=== PATIENT | female | born 1950 | race Caucasian/White ===

== ENCOUNTER 2025-04-13 13:50 | Observation (INO) | payer OTHER ==
--- OUTSIDE RECORDS SUMMARY | 2025-04-13 13:56 | XMS REPORT | Clinical Summary ---
Author Name Unknown Organization [facility] Address [address] [place] [address] Care Team Providers Care Cone Classifier Tender Name Role Phone Unavailable Primary Care Provider Unavailabl e Allergies Active Allergy Reactions Criticality Noted Date Comments Metformin Rash Low 02/08/2025 Medications albuterol (VENTOLIN HFA,PROAIR HFA) 90 mcg/puff inhaler Inhale 2 puffs by mouth every 6 (six) hours as needed for shortness of breath. 07/25/19 23 Active aspirin 81 mg EC tablet Take 1 tablet (81 mg) by mouth daily. Active benzonatate (TESSALON) 100 mg capsule Take 1 capsule (100 mg) by mouth 3 (three) times a day as needed for cough. 10/15/19 24 Active calcium citrate-vitamin D3 (CITRACAL D) 950 mg - 250 units (200 mg elemental calcium per tablet) tab tablet Take 1 tablet by mouth 2 (two) times a day with meals. 06/04/20 24 Active escitalopram (LEXAPRO) 10 mg tablet Take 1 tablet (10 mg) by mouth at bedtime. 06/04/20 24 Active Trelegy Ellipta 200-62.5-25 mcg dsdv Take 1 puff by mouth daily. Active ipratropium-albu terol (DUO-NEB) 0.5 mg-3 mg (2.5 mg base)/3 mL nebulizer solution Inhale 3 mL by mouth every 6 (six) hours as needed for shortness of breath or wheezing. 11/17/19 24 Active letrozole (FEMARA) 2.5 mg tablet Take 1 tablet (2.5 mg) by mouth daily. 05/13/20 24 Active mirtazapine (REMERON) 15 mg tablet Take 1 tablet (15 mg) by mouth at bedtime. 06/04/20 24 Active montelukast (SINGULAIR) 10 mg tablet Take 1 tablet (10 mg) by mouth at bedtime. 12/23/19 25 Active palbociclib (IBRANCE) 75 mg tablet Take 1 tablet (75 mg) by mouth daily. Take 75mg by mouth daily 3 weeks on, then one week off. May be taken with or without food 09/23/19 Active pantoprazole (PROTONIX) 40 mg EC tablet Take 1 tablet (40 mg) by mouth every morning before breakfast. 06/04/20 24 Active rosuvastatin (CRESTOR) 10 mg tablet Take 1 tablet (10 mg) by mouth at bedtime. 06/04/20 Active traZODone (DESYREL) 50 mg tablet Take 0.5-1 tablets (25-50 mg) by mouth nightly as needed for sleep. 11/05/19 25 Active OLANZapine (ZyPREXA) 2.5 mg tabletIndication s:Anxiety depression Take 1 tablet (2.5 mg) by mouth nightly as needed for anxiety. Patient does not know the frequency. 02/11/20 25 Active acetaminophen (TYLENOL) 325 mg tabletIndication s:Fatigue,Dyspne a,Pneumonia,Anem ia,Anxiety depression,Hyper tension,Antineop lastic chemotherapy induced pancytopenia,Can cer-related fatigue,Insomnia due to medical condition,Nausea ,Slow transit constipation,Str ess and adjustment reaction,Estroge n receptor positive status (ER+),Anemia in neoplastic disease,CT of head abnormal,Malnutr ition of moderate degree,Gastroeso phageal reflux disease,Type 2 diabetes mellitus with hyperglycemia,Ch ronic diastolic heart failure,Chronic hypoxemic respiratory failure,Decompen sated COPD with acute exacerbation,Oth er pneumonia Take 2 tablets (650 mg) by mouth every 6 (six) hours as needed for headaches. 02/20/20 25 Active baclofen (LIORESAL) 5 mg tab tabletIndication s:Fatigue,Dyspne a,Pneumonia,Anem ia,Anxiety depression,Hyper tension,Antineop lastic chemotherapy induced pancytopenia,Can cer-related fatigue,Insomnia due to medical condition,Nausea ,Slow transit constipation,Str ess and adjustment reaction,Estroge n receptor positive status (ER+),Anemia in neoplastic disease,CT of head abnormal,Malnutr ition of moderate degree,Gastroeso phageal reflux disease,Type 2 diabetes mellitus with hyperglycemia,Ch ronic diastolic heart failure,Chronic hypoxemic respiratory failure,Decompen sated COPD with acute exacerbation,Oth er pneumonia,Headac he, not otherwise specified,Metapl astic carcinoma, 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 90 tablet 1 5 11:55 AM CDT 02/20/20 25 Active Lantus Solostar U-100 Insulin 100 unit/mL (3 mL) insulin penIndications:F atigue,Dyspnea,P neumonia,Anemia, Anxiety depression,Hyper tension,Antineop lastic chemotherapy induced pancytopenia,Can cer-related fatigue,Insomnia due to medical condition,Nausea ,Slow transit constipation,Str ess and adjustment reaction,Estroge n receptor positive status (ER+),Anemia in neoplastic disease,CT of head abnormal,Malnutr ition of moderate degree,Gastroeso phageal reflux disease,Type 2 diabetes mellitus with hyperglycemia,Ch ronic diastolic heart failure,Chronic hypoxemic respiratory failure,Decompen sated COPD with acute exacerbation,Oth er pneumonia,Headac he, not otherwise specified,Metapl astic carcinoma, 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 15 mL 02/20/20 25 Active topical paste menthol-white petrolatum-zinc oxide (REMEDY CALAZIME) 0.44-20.6 % psteIndications: Fatigue,Dyspnea, Pneumonia,Anemia ,Anxiety depression,Hyper tension,Antineop lastic chemotherapy induced pancytopenia,Can cer-related fatigue,Insomnia due to medical condition,Nausea ,Slow transit constipation,Str ess and adjustment reaction,Estroge n receptor positive status (ER+),Anemia in neoplastic disease,CT of head abnormal,Malnutr ition of moderate degree,Gastroeso phageal reflux disease,Type 2 diabetes mellitus with hyperglycemia,Ch ronic diastolic heart failure,Chronic hypoxemic respiratory failure,Decompen sated COPD with acute exacerbation,Oth er pneumonia,Headac he, not otherwise specified,Metapl astic carcinoma, 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 113 g 5 11:55 AM CDT 02/20/20 25 Active polyethylene glycol (GLYCOLAX) 17 gram/dose powderIndication s:Fatigue,Dyspne a,Pneumonia,Anem ia,Anxiety depression,Hyper tension,Antineop lastic chemotherapy induced pancytopenia,Can cer-related fatigue,Insomnia due to medical condition,Nausea ,Slow transit constipation,Str ess and adjustment reaction,Estroge n receptor positive status (ER+),Anemia in neoplastic disease,CT of head abnormal,Malnutr ition of moderate degree,Gastroeso phageal reflux disease,Type 2 diabetes mellitus with hyperglycemia,Ch ronic diastolic heart failure,Chronic hypoxemic respiratory failure,Decompen sated COPD with acute exacerbation,Oth er pneumonia,Headac he, not otherwise specified,Metapl astic carcinoma, 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 Stir and dissolve in 4 to 8 ounces of any beverage, then drink by mouth daily. 510 g 5 11:55 AM CDT 02/20/20 25 Active senna-docusate (SENOKOT-S) 8.6 mg-50 mg tabletIndication s:Fatigue,Dyspne a,Pneumonia,Anem ia,Anxiety depression,Hyper tension,Antineop lastic chemotherapy induced pancytopenia,Can cer-related fatigue,Insomnia due to medical condition,Nausea ,Slow transit constipation,Str ess and adjustment reaction,Estroge n receptor positive status (ER+),Anemia in neoplastic disease,CT of head abnormal,Malnutr ition of moderate degree,Gastroeso phageal reflux disease,Type 2 diabetes mellitus with hyperglycemia,Ch ronic diastolic heart failure,Chronic hypoxemic respiratory failure,Decompen sated COPD with acute exacerbation,Oth er pneumonia,Headac he, not otherwise specified,Metapl astic carcinoma, 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 180 tablet 5 11:55 AM CDT 02/20/20 25 Active fluticasone propionate-salme terol (ADVAIR) 500 mcg-50 mcg/inhalation diskus inhaler Inhale 1 puff by mouth twice daily. 06/17/20 24 Discontinu ed(Stop Taking at Discharge) furosemide (LASIX) 20 mg tablet Take 2 tablets (40 mg) by mouth daily. Patient states she is suppose to take it daily, but she is only taking it as needed. 04/28/20 24 Discontinu ed(Stop Taking at Discharge) Lantus Solostar U-100 Insulin 100 unit/mL (3 mL) insulin pen Inject 25 Units under the skin twice daily. 12/22/19 25 Discontinu ed(Reorder ) insulin lispro (HumaLOG KWIKPEN) 100 unit/mL insulin pen Inject 10 Units under the skin 3 (three) times a day before meals. Patient states she does not check blood glucose before administering. Discontinu ed(Stop Taking at Discharge) metoprolol tartrate (LOPRESSOR) 25 mg tablet Take 1 tablet (25 mg) by mouth twice daily. 06/04/20 Discontinu ed(Stop Taking at Discharge) OLANZapine (ZyPREXA) 2.5 mg tablet Take 1 tablet (2.5 mg) by mouth. Patient does not know the frequency. 10/22/19 Discontinu ed(Reorder ) amLODIPine (NORVASC) 10 mg tabletIndication s:Hypertension Take 1 tablet (10 mg) by mouth daily for 30 days. 30 tablet 11:55 AM CDT 02/16/20 Active Problems Problem Noted Date Diagnosed Date Adjustment disorder with mixed anxiety and depre ssed mood 02/23/2025 Complicated grief 02/23/2025 Antineoplastic chemotherapy induced pancytopenia 02/18/2025 Anemia in neoplastic disease 02/16/2025 Estrogen receptor positive status (ER+) 02/17/20 Stress and adjustment reaction 02/16/2025 Slow transit constipation 02/16/2025 Nausea 02/16/2025 Insomnia due to medical condition 02/16/2025 Cancer-related fatigue 02/16/2025 Malnutrition of moderate degree 02/12/2025 Headache 02/12/2025 CT of head abnormal 02/12/2025 Decompensated COPD with acute exacerbation 02/09 Chronic hypoxemic respiratory failure 02/09/2025 Chronic diastolic heart failure 02/09/2025 Hypertension 02/09/2025 Chronic kidney disease 02/09/2025 Type 2 diabetes mellitus with hyperglycemia 01/13 Anxiety depression 02/09/2025 Breast cancer 02/09/2025 Gastroesophageal reflux disease 02/09/2025 Other pneumonia 02/08/2025 Fatigue 02/08/2025 Acute nontraumatic kidney injury 02/08/2025 Dyspnea 02/08/2025 Encounters Date Type Department Care Team Description 02/15/2025 7:22 AM CDT Anesthesia Event [facility] Main Bldg, 3rd [place] [address] Teri Estrada MD Shaik, Ghouse B, TIRE TRUCKER 02/08/2025 8:39 AM CDT - 02/19/2025 11:31 AM CDT Hospital Encounter [facility] [address] [place] [address] Destiny More MD Taylor, MD Jennifer Truong Aliasger, MD Leung, Cerena, MD Manzano, Joanna-Grace, MD Fatigue (Primary Dx); Dyspnea; Pneumonia; Anemia; Anxiety depression; Hypertension; Antineoplastic chemotherapy induced pancytopenia; Cancer-related fatigue; Insomnia due to medical condition; Nausea; Slow transit constipation; Stress and adjustment reaction; Estrogen receptor positive status (ER+); Anemia in neoplastic disease; CT of head abnormal; Malnutrition of moderate degree; Gastroesophageal reflux disease; Type 2 diabetes mellitus with hyperglycemia; Chronic diastolic heart failure; Chronic hypoxemic respiratory failure; Decompensated COPD with acute exacerbation; Other pneumonia; Headache, not otherwise specified; Metaplastic carcinoma, 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 Currently vapes, only some days. Passive Exposure Comments:Patient states she quit cigarettes in the beginning of 2024 but started vaping after that, currently vapes. Alcohol Use Standard Drinks/Week Comments Not Currently 0 (1 standard drink = 0.6 oz pur e alcohol) Comments No Sex and Gender Information Value Date Recorded Sex Assigned at Not on file Legal Sex Female 8:32 AM CDT Gender Identity Not on file Sexual Orientation Not on file Travel History Travel Start Travel End [place] 02/06/2025 02/08/2025 Obstetrics History Last Filed Vital Signs Vital Sign Reading Time Taken Comments Blood Pressure 145/59 02/19/2025 9:40 AM CDT Pulse 87 02/19/2025 9:40 AM CDT Temperature 36.5 °C (97.7 °F) 02/19/2025 7:41 AM CD T Respiratory Rate 18 02/19/2025 8:22 AM CDT Oxygen Saturation 90% 02/19/2025 9:40 AM CDT Inhaled Oxygen Concentration - - Weight 114.5 kg (252 lb 6.8 oz) 02/08/2025 2:34 PM CDT Height 170.2 cm (5' 7") 02/08/2025 2:34 PM CDT Body Mass Index 39.54 02/08/2025 2:34 PM CDT Plan of Treatment Health Maintenance Due Date Last Done Comments COVID-19 Vaccine (2024-08 6 season) 2025 11/20/2021, 05/22/2021, 10/06/2020, Additional history exists Influenza Vaccine (#1) 2025 , 04/03/2023, 04/10/2022, Additional history exists Pneumococcal Vaccine: 50+ Years Completed 12/16/2017, 05/16/2016, 05/08/2012, Additional history exists Procedures Procedure Name Priority Date/Time Associated Diagnosis Comments POC GLUCOSE SCREEN Routine 02/19/2025 8: 53 AM CDT .CBC Routine 02/19/2025 1:44 AM CDT PHOSPHORUS LEVEL Routine 02/19/2025 1:44 AM CDT MAGNESIUM LEVEL Routine 02/19/2025 1:44 AM CDT COMPLETE BLOOD COUNT W/ DIFFERENTIAL Routine 02/19/2025 1:44 AM CDT BASIC METABOLIC PANEL, CALCIUM TOTAL Routine 02/19/2025 1:44 AM CDT POC GLUCOSE SCREEN Routine 02/18/2025 10 :30 PM CDT POC GLUCOSE SCREEN Routine 02/18/2025 8: 43 PM CDT POC GLUCOSE SCREEN Routine 02/18/2025 5: 41 PM CDT POC GLUCOSE SCREEN Routine 02/18/2025 1: 56 PM CDT POC GLUCOSE SCREEN Routine 02/18/2025 8: 46 AM CDT .CBC Routine 02/18/2025 5:09 AM CDT PHOSPHORUS LEVEL Routine 02/18/2025 5:09 AM CDT MAGNESIUM LEVEL Routine 02/18/2025 5:09 AM CDT BASIC METABOLIC PANEL, CALCIUM TOTAL Routine 02/18/2025 5:09 AM CDT COMPLETE BLOOD COUNT W/ DIFFERENTIAL Routine 02/18/2025 5:09 AM CDT POC GLUCOSE SCREEN Routine 02/17/2025 10 :36 PM CDT POC GLUCOSE SCREEN Routine 02/17/2025 8: 20 PM CDT POC GLUCOSE SCREEN Routine 02/17/2025 12 :32 PM CDT POC GLUCOSE SCREEN Routine 02/17/2025 7: 30 AM CDT .CBC Routine 02/17/2025 5:43 AM CDT PHOSPHORUS LEVEL Routine 02/17/2025 5:43 AM CDT MAGNESIUM LEVEL Routine 02/17/2025 5:43 AM CDT BASIC METABOLIC PANEL, CALCIUM TOTAL Routine 02/17/2025 5:43 AM CDT COMPLETE BLOOD COUNT W/ DIFFERENTIAL Routine 02/17/2025 5:43 AM CDT POC GLUCOSE SCREEN Routine 02/16/2025 9: 02 PM CDT POC GLUCOSE SCREEN Routine 02/16/2025 6: 09 PM CDT POC GLUCOSE SCREEN Routine 02/16/2025 2: 42 PM CDT POC GLUCOSE SCREEN Routine 02/16/2025 9: 53 AM CDT .CBC Routine 02/16/2025 5:42 AM CDT PHOSPHORUS LEVEL Routine 02/16/2025 5:42 AM CDT MAGNESIUM LEVEL Routine 02/16/2025 5:42 AM CDT BASIC METABOLIC PANEL, CALCIUM TOTAL Routine 02/16/2025 5:42 AM CDT COMPLETE BLOOD COUNT W/ DIFFERENTIAL Routine 02/16/2025 5:42 AM CDT POC GLUCOSE SCREEN Routine 02/15/2025 10 :30 PM CDT POC GLUCOSE SCREEN Routine 02/15/2025 7: 56 PM CDT POC GLUCOSE SCREEN Routine 02/15/2025 1: 03 PM CDT POC GLUCOSE SCREEN Routine 02/15/2025 10 :04 AM CDT POC GLUCOSE SCREEN Routine 02/15/2025 8: 40 AM CDT MRI BRAIN W WO CONTRAST STAT 02/15/2025 7:08 AM CDT POC GLUCOSE SCREEN Routine 02/15/2025 6: 44 AM CDT VITAMIN D 25 HYDROXY LEVEL Add-On 02/15/2025 5:30 AM CDT .CBC Routine 02/15/2025 5:30 AM CDT PHOSPHORUS LEVEL Routine 02/15/2025 5:30 AM CDT MAGNESIUM LEVEL Routine 02/15/2025 5:30 AM CDT BASIC METABOLIC PANEL, CALCIUM TOTAL Routine 02/15/2025 5:30 AM CDT COMPLETE BLOOD COUNT W/ DIFFERENTIAL Routine 02/15/2025 5:30 AM CDT POC GLUCOSE SCREEN Routine 02/14/2025 8: 53 PM CDT POC GLUCOSE SCREEN Routine 02/14/2025 6: 15 PM CDT POC GLUCOSE SCREEN Routine 02/14/2025 1: 15 PM CDT POC GLUCOSE SCREEN Routine 02/14/2025 7: 47 AM CDT ALBUMIN LEVEL Add-On 02/14/2025 4:08 AM CDT .CBC Routine 02/14/2025 4:08 AM CDT PHOSPHORUS LEVEL Routine 02/14/2025 4:08 AM CDT MAGNESIUM LEVEL Routine 02/14/2025 4:08 AM CDT BASIC METABOLIC PANEL, CALCIUM TOTAL Routine 02/14/2025 4:08 AM CDT COMPLETE BLOOD COUNT W/ DIFFERENTIAL Routine 02/14/2025 4:08 AM CDT POC GLUCOSE SCREEN Routine 02/13/2025 9: 47 PM CDT POC GLUCOSE SCREEN Routine 02/13/2025 7: 56 PM CDT EKG, 12-LEAD (PORTABLE) Routine 02/13/2025 4:49 PM CDT POC GLUCOSE SCREEN Routine 02/13/2025 2: 36 PM CDT POC GLUCOSE SCREEN Routine 02/13/2025 10 :04 AM CDT .CBC Routine 02/13/2025 5:51 AM CDT COMPLETE BLOOD COUNT W/ DIFFERENTIAL Routine 02/13/2025 5:51 AM CDT NT PRO BNP Add-On 02/13/2025 5:50 AM CDT PHOSPHORUS LEVEL Routine 02/13/2025 5:50 AM CDT MAGNESIUM LEVEL Routine 02/13/2025 5:50 AM CDT BASIC METABOLIC PANEL, CALCIUM TOTAL Routine 02/13/2025 5:50 AM CDT OSCILLATORY PEP Routine 02/12/2025 8:00 PM CDT POC GLUCOSE SCREEN Routine 02/12/2025 7: 57 PM CDT OSCILLATORY PEP Routine 02/12/2025 2:00 PM CDT POC GLUCOSE SCREEN Routine 02/12/2025 1: 16 PM CDT POC GLUCOSE SCREEN Routine 02/12/2025 9: 04 AM CDT OSCILLATORY PEP Routine 02/12/2025 8:00 AM CDT .CBC Routine 02/12/2025 4:34 AM CDT PHOSPHORUS LEVEL Routine 02/12/2025 4:34 AM CDT MAGNESIUM LEVEL Routine 02/12/2025 4:34 AM CDT BASIC METABOLIC PANEL, CALCIUM TOTAL Routine 02/12/2025 4:34 AM CDT COMPLETE BLOOD COUNT W/ DIFFERENTIAL Routine 02/12/2025 4:34 AM CDT POC GLUCOSE SCREEN Routine 02/11/2025 8: 12 PM CDT OSCILLATORY PEP Routine 02/11/2025 8:00 PM CDT POC GLUCOSE SCREEN Routine 02/11/2025 2: 13 PM CDT OSCILLATORY PEP Routine 02/11/2025 2:00 PM CDT EKG, 12-LEAD (PORTABLE) Routine 02/11/2025 1:25 PM CDT POC GLUCOSE SCREEN Routine 02/11/2025 9: 28 AM CDT OSCILLATORY PEP Routine 02/11/2025 9:07 AM CDT OSCILLATORY PEP Routine 02/11/2025 9:07 AM CDT OSCILLATORY PEP Routine 02/11/2025 9:07 AM CDT PHOSPHORUS LEVEL Routine 02/11/2025 6:42 AM CDT MAGNESIUM LEVEL Routine 02/11/2025 6:42 AM CDT BASIC METABOLIC PANEL, CALCIUM TOTAL Routine 02/11/2025 6:42 AM CDT .CBC Routine 02/11/2025 4:13 AM CDT COMPLETE BLOOD COUNT W/ DIFFERENTIAL Routine 02/11/2025 4:13 AM CDT POC GLUCOSE SCREEN Routine 02/10/2025 10 :04 PM CDT POC GLUCOSE SCREEN Routine 02/10/2025 7: 52 PM CDT POC GLUCOSE SCREEN Routine 02/10/2025 6: 19 PM CDT POC GLUCOSE SCREEN Routine 02/10/2025 1: 28 PM CDT POC GLUCOSE SCREEN Routine 02/10/2025 10 :03 AM CDT EKG, 12-LEAD (PORTABLE) Routine 02/10/2025 9:30 AM CDT NT PRO BNP Add-On 02/10/2025 4:43 AM CDT .CBC Routine 02/10/2025 4:43 AM CDT PHOSPHORUS LEVEL Routine 02/10/2025 4:43 AM CDT MAGNESIUM LEVEL Routine 02/10/2025 4:43 AM CDT COMPLETE BLOOD COUNT W/ DIFFERENTIAL Routine 02/10/2025 4:43 AM CDT BASIC METABOLIC PANEL, CALCIUM TOTAL Routine 02/10/2025 4:43 AM CDT POC GLUCOSE SCREEN Routine 02/09/2025 10 :[address] HEAD WO CONTRAST STAT 02/09/2025 7 :[address] CHEST PULMONARY EMBOLISM W CONTRAST Routine 02/09/2025 7:02 PM CDT US LEG VENOUS DOPPLER BILATERAL Routine 02/09/2025 3:35 PM CDT EKG, 12-LEAD (PORTABLE) Routine 02/09/2025 1:47 PM CDT VANCOMYCIN TROUGH Timed Study 02/09/2025 12: 16 PM CDT ECHOCARDIOGRAM STRAIN/SPECKLE TRACKING Routine 02/09/2025 11:31 AM CDT US RENAL Routine 02/09/2025 5:51 AM CDT HEMOGLOBIN A1C Add-On 02/09/2025 5:25 AM CDT LIPID PANEL Add-On 02/09/2025 5:25 AM CDT HEPATIC FUNCTION PANEL Add-On 5:25 AM CDT .CBC Routine 02/09/2025 5:25 AM CDT PHOSPHORUS LEVEL Routine 02/09/2025 5:25 AM CDT MAGNESIUM LEVEL Routine 02/09/2025 5:25 AM CDT COMPLETE BLOOD COUNT W/ DIFFERENTIAL Routine 02/09/2025 5:25 AM CDT BASIC METABOLIC PANEL, CALCIUM TOTAL Routine 02/09/2025 5:25 AM CDT COMER MISC TEST Routine 02/08/2025 10:59 PM CDT CREATININE URINE, RANDOM Routine 02/08/2025 10:59 PM CDT POTASSIUM LEVEL URINE Routine 02/08/2025 10:59 PM CDT SODIUM URINE Routine 02/08/2025 10:59 PM CDT TRANSFUSE RED BLOOD CELLS Routine 02/08/2025 9:53 PM CDT MRSA SCREENING CULTURE Routine 4:11 PM CDT URINALYSIS W/REFLEX CULTURE GROUPER Routine 02/08/2025 3:43 PM CDT URINALYSIS W/REFLEX CULTURE Routine 02/08/2025 3:43 PM CDT URINE CULTURE Routine 02/08/2025 3:43 PM CDT CONFIRM ABORH TYPE STAT 02/08/2025 10 :54 AM CDT TYPE AND SCREEN STAT 02/08/2025 10:53 AM CDT PREPARE RBC Routine 02/08/2025 10:23 AM CDT RESPIRATORY MULTIPLEX PCR PANEL, NASOPHARYNGEAL SWAB Routine 02/08/2025 10:07 AM CDT DIFFERENTIAL Routine 02/08/2025 10:06 AM CDT .CBC Routine 02/08/2025 10:06 AM CDT CARDIAC PANEL Routine 02/08/2025 10:06 AM CDT COMPLETE BLOOD COUNT W/ DIFFERENTIAL Routine 02/08/2025 10:06 AM CDT NT PRO BNP Routine 02/08/2025 10:06 AM CDT PHOSPHORUS LEVEL Routine 02/08/2025 10:0 6 AM CDT MAGNESIUM LEVEL Routine 02/08/2025 10:06 AM CDT COMPREHENSIVE METABOLIC PANEL Routine 02/08/2025 10:06 AM CDT EKG, 12-LEAD (PORTABLE) STAT 02/08/2025 9:50 AM CDT XR CHEST 1 VW Routine 02/08/2025 9:47 AM CDT after 04/13/2024 Results * (ABNORMAL) POC Glucose Screen - Fingerstick (02/19/2025 8:53 AM CDT) Only the most recent of40 resultswithin the time period is included. Glucose Screen 144(H) 70 - 99 mg/dL 02/19/2025 8:56 AM CDT [facility] POC Sample Type Capillary 02/19/2025 8:56 AM CDT [facility] Blood 02/19/2025 8:53 AM CDT 02/19/2025 8:56 AM CDT Narrative [facility] - 02/19/2025 8:56 AM CDT Capillary blood samples, e.g. obtained by fingerstick, may have inaccurate results in patients with decreased peripheral blood flow. Method description: All results are measured using Electrochemistry test methodology. The glucose in the sample mixes with the reagents on the test strip. The reaction produces an electric current. The amount of current produced is proportional to the glucose concentration in the blood. All POC Glucose screen test results, including critical values, must be interpreted and evaluated in the context of the patients' clinical findings. It is recommended to confirm any questionable test results by core lab methodology. us Bernice Carey MD POCT ORDERABLES - DEVICE Final Result [facility] [address] [place] [address] * (ABNORMAL) .CBC (02/19/2025 1:44 AM CDT) Only the most recent of12 resultswithin the time period is included. White Blood Cell 5.8 4.1 - 10.5 K/uL 02/19/2025 2:02 AM CDT [facility] Red Blood Cell 2.64(L) 3.99 - 5.46 M/uL 02/19/2025 2:02 AM CDT [facility] Hemoglobin 7.9(L) 12.2 - 15.3 g/dL 02/19/2025 2:02 AM CDT [facility] Hematocrit 25.7(L) 36.4 - 46.8 % 02/19/2025 2:02 AM CDT [facility] Mean Cell Volume 97 82 - 99 fL 02/19/2025 2:02 AM CDT [facility] Mean Cell Hemoglobin 29.9 26.6 - 33.2 pg 02/19/2025 2:02 AM CDT [facility] Mean Cell Hemoglobin Concentration 30.7(L) 31.1 - 35.2 g/dL 02/19/2025 2:02 AM CDT [facility] RDW-SD 62.0(H) 37.5 - 49.7 fL 02/19/2025 2:02 AM [facility] Red Cell Diameter Width 17.2(H) 11.6 - 15.5 % 02/19/2025 2:02 AM [facility] Platelet 104(L) 160 - 397 K/uL 02/19/2025 2:02 AM [facility] Mean Platelet Volume 10.7 9.1 - 12.6 fL 02/19/2025 2:02 AM [facility] INRBC 0.0 0.0 - 0.1 /100 WBC 02/19/2025 2:02 AM [facility] Comment: The INRBC value reflects the enumeration of nucleated red blood cells contained in a 200uL sample of whole blood analyzed by the instrument. This value may differ from the NRBC value reported in a manual diff, which is based on a 100 cell differential. Neutrophil % 64.1 43.2 - 72.7 % 02/19/2025 2:02 AM [facility] Lymphocyte % 15.9(L) 16.8 - 46.2 % 02/19/2025 2:02 AM [facility] Monocyte % 16.4(H) 5.1 - 12.5 % 02/19/2025 2:02 AM [facility] Eosinophil % 2.4 0.4 - 6.3 % 02/19/2025 2:02 AM [facility] Basophil % 0.7 0.2 - 1.4 % 02/19/2025 2:02 AM [facility] IGRE % 0.5 0.1 - 1.5 % 02/19/2025 2:02 AM [facility] Comment:The IGRE% includes M etamyelocytes, Myelocytes and Promyelocytes. Neutrophil Abs 3.71 1.95 - 7.25 K/uL 02/19/2025 2:02 AM [facility] Lymphocyte Abs 0.92(L) 1.01 - 3.24 K/uL 02/19/2025 2:02 AM [facility] Monocyte Abs 0.95(H) 0.24 - 0.85 K/uL 02/19/2025 2:02 AM CDT [facility] Eosinophil Abs 0.14 0.02 - 0.50 K/uL 02/19/2025 2:02 AM CDT [facility] Basophil Abs 0.04 0.02 - 0.09 K/uL 02/19/2025 2:02 AM CDT [facility] IG Abs 0.03 0.01 - 0.12 K/uL 02/19/2025 2:02 AM CDT [facility] Blood Peripheral blood specimen / Unknown Venipuncture / Unknown 02/19/2025 1:44 AM CDT 02/19/2025 1:54 AM CDT us T Bhatti [employer] LAB BLOOD ORDERABLES Final Resul t [address] [place] [address] [place] [address] * (ABNORMAL) Basic Metabolic Panel- Total Calcium (02/19/2025 1:44 AM CDT) Only the most recent of11 resultswithin the time period is included. eGFR 45(L) >=60 mL/min/1. 73 sq. m 02/19/2025 2:27 AM CDT [facility] Comment: The eGFRcr is calculated with the 2020 CKD-EPI creatinine equation using creatinine, patient's age, and sex for adults 18 years of age and older. Other factors, especially muscle mass, may affect accuracy and need to be considered. According to the Kidney Disease: Improving Global Outcomes (KDIGO) CKD Work Group 2012 Clinical Practice Guideline, chronic kidney disease (CKD) is defined as the abnormalities of kidney structure or function, present for more than 3 months, with implications for health. CKD should be classified by cause, GFR category, and albuminuria category. KDIGO guidelines provide the following GFR categories. Stage / Description / GFR mL/min/1.73 m2: G1* / Normal or high / >= 90 G2* / Mildly decreased / 60-89 G3a / Mildly to moderately decreased / 45-59 G3b / Moderately to severely decreased / 30-44 G4 / Severely decreased / 15-29 G5 / Kidney failure / <15 *In the absence of evidence of kidney damage, neither G1 nor G2 fulfill criteria for CKD. Calcium Level Total 9.5 8.2 - 10.2 mg/dL 02/19/2025 2:27 AM CDT [facility] Sodium Level 141 136 - 145 mmol/L 02/19/2025 2:27 AM CDT [facility] Potassium Level 4.6(H) 3.4 - 4.5 mmol/L 02/19/2025 2:27 AM CDT [facility] Chloride 102 98 - 107 mmol/L 02/19/2025 2:27 AM CDT [facility] CO2 30(H) 22 - 29 mmol/L 02/19/2025 2:27 AM CDT [facility] Anion Gap 9 4 - 14 mmol/L 02/19/2025 2:27 AM CDT [facility] Creatinine 1.26(H) 0.51 - 0.95 mg/dL 02/19/2025 2:27 AM CDT [facility] BUN 23 6 - 23 mg/dL 02/19/2025 2:27 AM CDT [facility] Glucose Level 129(H) 70 - 99 mg/dL 02/19/2025 2:27 AM CDT [facility] Comment: Effective 02/08/16, the glucose reference intervals have been updated based on [place] Diabetes [employer] guidelines (Standards of Medical Care in Diabetes 2016. Diabetes Care 2016; 39: S13-S22). Fasting blood glucose: Normal: 70-99 mg/dL Impaired fasting glucose (increased risk for diabetes or pre-diabetes): 100-125 mg/dL Diabetes mellitus: >/=126 mg/dL Random blood glucose: Normal: 70-199 mg/dL Note: Random glucose >100 mg/dL is associated with increased risk for diabetes. Blood Peripheral blood specimen / Unknown Venipuncture / Unknown 02/19/2025 1:44 AM CDT 02/19/2025 1:54 AM CDT us T Bhatti [employer] LAB BLOOD ORDERABLES Final Resul t [facility] [address] [place] [address] * Phosphorus Level (02/19/2025 1:44 AM CDT) Only the most recent of12 resultswithin the time period is included. Phosphorus Level 3.3 2.5 - 4.5 mg/dL 02/19/2025 2:27 AM CDT [facility] Blood Peripheral blood specimen / Unknown Venipuncture / Unknown 02/19/2025 1:44 AM CDT 02/19/2025 1:54 AM CDT us T Bhatti [employer] LAB BLOOD ORDERABLES Final Resul t Performing Organization Address [facility] Co de Phone Number [address] [address] * Magnesium Level (02/19/2025 1:44 AM CDT) Only the most recent of12 resultswithin the time period is included. Magnesium Level 2.2 1.6 - 2.6 mg/dL 02/19/2025 2:27 AM CDT [facility] Blood Peripheral blood specimen / Unknown Venipuncture / Unknown 02/19/2025 1:44 AM CDT 02/19/2025 1:54 AM CDT us T Bhatti [employer] LAB BLOOD ORDERABLES Final Resul t Performing Organization Address [facility] de Phone Number [address] [address] * MRI Brain with and without Contrast (02/15/2025 7:08 AM CDT) Anatomical Region Laterality Modality Head Magnetic Resonan ce 02/15/2025 8:45 AM CDT Impressions 02/15/2025 9:57 AM CDT 1. No acute intracranial abnormality. 2. No definite evidence of intracranial metastasis within motion limitation. ACTIONABLE ITEMS/RECOMMENDATIONS*: None. *An Actionable Finding is a finding that may be unrelated to the original reason for imaging but potentially actionable, meaning further investigation may be necessary. The Actionable Findings Vigilance Unit (AFVU) assists medical providers with responding to additional radiologic findings that are unexpected and potentially actionable. Narrative 02/15/2025 9:57 AM CDT FULL RESULT: Examination: MRI BRAIN W WO CONTRAST on 02/15/2025 7:08 AM. CLINICAL HISTORY: Decompensated COPD with acute exacerbation. Breast cancer. INDICATION: Uncontrolled headaches COMPARISON: CT 02/09/2025. TECHNIQUE: MRI of the brain without and with IV contrast was performed. FINDINGS: Motion degraded exam. Intracranial: There is no worrisome parenchymal or leptomeningeal enhancement. There is no acute hemorrhage or acute infarct. There is small area of gliosis in left occipital lobe without enhancement (series 9 image 17, series 1100 image 57), likely secondary to prior insult. Moderate patchy periventricular and subcortical white matter as well as pontine FLAIR hyperintensities, likely related to chronic microangiopathy. There is no mass effect or midline shift. The ventricles and extra-axial spaces are appropriate for age. There is no sellar or suprasellar abnormality. Bone: There are no suspicious calvarial or skull base lesions. Hyperostosis frontalis interna. Prominent osteophyte at left C1-C2 lateral mass/facet and C2/C3 degenerative changes are partially seen. Extracranial: Bilateral pseudophakia. The mastoid and visualized paranasal sinuses are predominantly clear. Procedure Note Gal Caba MD - 02/15/2025 FULL RESULT: Examination: MRI BRAIN W WO CONTRAST on 02/15/2025 7:08 AM. CLINICAL HISTORY: Decompensated COPD with acute exacerbation. Breastcancer. INDICATION: Uncontrolled headaches COMPARISON: CT 02/09/2025. TECHNIQUE: MRI of the brain without and with IV contrast was performed. FINDINGS: Motion degraded exam. Intracranial: There is no worrisome parenchymal or leptomeningeal enhancement. There is no acute hemorrhage or acute infarct. There is small area of gliosis in left occipital lobe without enhancement(series 9 image 17, series 1100 image 57), likely secondary to priorinsult. Moderate patchy periventricular and subcortical white matter as well aspontine FLAIR hyperintensities, likely related to chronicmicroangiopathy. There is no mass effect or midline shift. The ventricles and extra-axial spaces are appropriate for age. There is no sellar or suprasellar abnormality. Bone: There are no suspicious calvarial or skull base lesions. Hyperostosis frontalis interna. Prominent osteophyte at left C1-C2 lateral mass/facet and C2/B9sjoomayjuowg changes are partially seen. Extracranial: Bilateral pseudophakia. The mastoid and visualized paranasal sinuses are predominantly clear. IMPRESSION: 1. No acute intracranial abnormality. 2. No definite evidence of intracranial metastasis within motionlimitation. ACTIONABLE ITEMS/RECOMMENDATIONS*: None. *An Actionable Finding is a finding that may be unrelated to the originalreason for imaging but potentially actionable, meaning furtherinvestigation may be necessary. The Actionable Findings Vigilance Unit(AFVU) assists medical providers with responding to additional radiologicfindings that are unexpected and potentially actionable. Franky Edward MD IMG MRI ORDERABLES Final Result * (ABNORMAL) Vitamin D 25OH (02/15/2025 5:30 AM CDT) Pathologist [facility] Vitamin D 25 OH 19(L) 30 - 100 ng/mL 02/15/2025 10:27 PM CDT [facility] Blood Peripheral blood specimen / Unknown Venipuncture / Unknown 02/15/2025 5:30 AM CDT 02/15/2025 5:57 AM CDT Narrative [facility] - 02/15/2025 10:27 PM CDT Reference Range: Deficiency: <=20 ng/mL Insufficiency: 21-29 ng/mL Sufficiency: 30-100 ng/mL Potential toxicity: >100 ng/mL Franky Edward MD LAB BLOOD ORDERABLES Final Resul t [facility] [address] [place] [address] * Albumin Level (02/14/2025 4:08 AM CDT) Albumin Level 3.5 3.5 - 5.2 gm/dL 02/14/2025 11:02 AM CDT [facility] Blood Peripheral blood specimen / Unknown Venipuncture / Unknown 02/14/2025 4:08 AM CDT 02/14/2025 4:31 AM CDT us Franky Edward MD LAB BLOOD ORDERABLES Final Resul t Performing Organization Address [facility] Co de Phone Number [address] [address] * EKG, 12-Lead (Portable) (02/13/2025 4:49 PM CDT) Only the most recent of5 resultswithin the time period is included. us Franky Edward MD ECG ORDERABLES Final Result Performing Organization Address [facility] Co de Phone Number [facility] IECG * (ABNORMAL) NT-Pro BNP (In-House) (02/13/2025 5:50 AM CDT) Only the most recent of3 resultswithin the time period is included. NT-ProBNP 3,712(H) <=450 pg/mL 02/13/2025 11:35 AM CDT [facility] Blood Peripheral blood specimen / Unknown Venipuncture / Unknown 02/13/2025 5:50 AM CDT 02/13/2025 6:17 AM CDT Result [facility] us Franky Edward MD LAB BLOOD ORDERABLES Final Resul t Performing Organization Address [facility] de Phone Number [address] [address] * CT Head without Contrast (02/09/2025 7:02 PM CDT) Anatomical Region Laterality Modality Head Computed Tomogra phy 02/09/2025 7:12 PM CDT Impressions 02/09/2025 10:47 PM CDT 1. No acute intracranial abnormality. 2. Generalized cerebral volume loss. 3. Hyperostosis frontalis interna. ACTIONABLE ITEMS/RECOMMENDATIONS*: None. *An Actionable Finding is a finding that may be unrelated to the original reason for imaging but potentially actionable, meaning further investigation may be necessary. The Actionable Findings Vigilance Unit (AFVU) assists medical providers with responding to additional radiologic findings that are unexpected and potentially actionable. I personally reviewed these image(s) along with the resident's/fellow's interpretations, certify that if a procedure was performed I was physically present, and agree with the final report. Narrative 02/09/2025 10:47 PM CDT FULL RESULT: Examination: CT HEAD WO CONTRAST on 02/09/2025 7:02 PM. CLINICAL HISTORY: Anemia Dyspnea Pneumonia Fatigue INDICATION: severe headache COMPARISON: None. TECHNIQUE: CT head without IV contrast was performed. FINDINGS: Intracranial: Periarticular subcortical white matter hypodensities favored to represent chronic microvascular ischemic changes. There is no acute hemorrhage or large vascular territory infarct. There is no mass effect or midline shift. The ventricles and extra-axial spaces are enlarged with generalized cerebral volume loss, appropriate for age. Bone: There are no suspicious lytic or sclerotic calvarial and skull base lesions. Hyperostosis frontalis interna. Extracranial: The orbits are unremarkable. The visualized paranasal sinuses are predominantly clear. The mastoid air cells are clear. Procedure Note Onel Mckenna MD - 02/09/2025 FULL RESULT: Examination: CT HEAD WO CONTRAST on 02/09/2025 7:02 PM. CLINICAL HISTORY: Anemia Dyspnea Pneumonia Fatigue INDICATION: severe headache COMPARISON: None. TECHNIQUE: CT head without IV contrast was performed. FINDINGS: Intracranial: Periarticular subcortical white matter hypodensities favored to representchronic microvascular ischemic changes. There is no acute hemorrhage or large vascular territory infarct. There is no mass effect or midline shift. The ventricles and extra-axial spaces are enlarged with generalizedcerebral volume loss, appropriate for age. Bone: There are no suspicious lytic or sclerotic calvarial and skull baselesions. Hyperostosis frontalis interna. Extracranial: The orbits are unremarkable. The visualized paranasal sinuses are predominantly clear. The mastoid air cells are clear. IMPRESSION: 1. No acute intracranial abnormality. 2. Generalized cerebral volume loss. 3. Hyperostosis frontalis interna. ACTIONABLE ITEMS/RECOMMENDATIONS*: None. *An Actionable Finding is a finding that may be unrelated to the originalreason for imaging but potentially actionable, meaning furtherinvestigation may be necessary. The Actionable Findings Vigilance Unit(AFVU) assists medical providers with responding to additional radiologicfindings that are unexpected and potentially actionable. I personally reviewed these image(s) along with the resident's/fellow'sinterpretations, certify that if a procedure was performed I wasphysically present, and agree with the final report. us Franky Edward MD IMG CT ORDERABLES Final Result * CT Chest Pulmonary Embolism with Contrast (02/09/2025 7:02 PM CDT) Anatomical Region Laterality Modality Chest Computed Tomogra phy 02/09/2025 7:15 PM CDT Impressions 02/09/2025 7:27 PM CDT No pulmonary embolism. No pneumonia. Subsegmental atelectasis in the lingula and lung bases. Small pleural effusions. Bony metastatic disease. ACTIONABLE ITEMS/RECOMMENDATIONS*: None. *An Actionable Finding is a finding that may be unrelated to the original reason for imaging but potentially actionable, meaning further investigation may be necessary. The Actionable Findings Vigilance Unit (AFVU) assists medical providers with responding to additional radiologic findings that are unexpected and potentially actionable. Narrative 02/09/2025 7:27 PM CDT FULL RESULT: Examination: CT CHEST PULMONARY EMBOLISM W CONTRAST on 02/09/2025 7:02 PM. Clinical History: Breast cancer, Anemia Dyspnea Pneumonia Fatigue Indication: shortness of breath Comparison: None Technique: CT of the chest is performed using intravenous contrast. Findings: Lungs/Airways/Pleura: The left upper lobe 0.6 cm solid nodule on image 43 of series 3 is a nonspecific finding. A calcified granuloma is noted in the left lower lobe. Subsegmental atelectasis is seen in the lingula and bilateral lung bases. Small bilateral pleural effusions, left greater than right. Left pleural thickening may represent an inflammatory process or metastatic pleural disease. Neck/Mediastinum/Nodes/Heart: Contrast opacification of the pulmonary arteries is adequate for assessment of pulmonary embolism. No evidence of pulmonary embolism. No mediastinal or hilar adenopathy. The heart size is normal. Moderate coronary artery calcifications are noted. Mitral annular calcifications are noted. A small hiatal hernia is noted. Upper abdomen: Cholelithiasis is present. The adrenals are unremarkable. Bones/Soft Tissues: Sclerosis involving the left posterior 6th is suspicious for metastasis. The 1 cm sclerotic focus in the T9 vertebral body is suspicious for metastasis. Sclerosis of the anterior cortex of the left 7th to 10th ribs is also noted. A 1.6 cm sebaceous cyst is seen in the midline of the upper back. Degenerative changes are seen in the spine. Procedure Note Citlalli Zeng MD - 02/09/2025 FULL RESULT: Examination: CT CHEST PULMONARY EMBOLISM W CONTRAST on 02/09/2025 7:02PM. Clinical History: Breast cancer, Anemia Dyspnea Pneumonia Fatigue Indication: shortness of breath Comparison: None Technique: CT of the chest is performed using intravenous contrast. Findings: Lungs/Airways/Pleura: The left upper lobe 0.6 cm solid nodule on image 43of series 3 is a nonspecific finding. A calcified granuloma is noted inthe left lower lobe. Subsegmental atelectasis is seen in the lingula andbilateral lung bases. Small bilateral pleural effusions, left greater thanright. Left pleural thickening may represent an inflammatory process ormetastatic pleural disease. Neck/Mediastinum/Nodes/Heart: Contrast opacification of the pulmonaryarteries is adequate for assessment of pulmonary embolism. No evidence ofpulmonary embolism. No mediastinal or hilar adenopathy. The heart size is normal. Moderatecoronary artery calcifications are noted. Mitral annular calcificationsare noted. A small hiatal hernia is noted. Upper abdomen: Cholelithiasis is present. The adrenals are unremarkable. Bones/Soft Tissues: Sclerosis involving the left posterior 6th issuspicious for metastasis. The 1 cm sclerotic focus in the T9 vertebralbody is suspicious for metastasis. Sclerosis of the anterior cortex of theleft 7th to 10th ribs is also noted. A 1.6 cm sebaceous cyst is seen inthe midline of the upper back. Degenerative changes are seen in thespine. IMPRESSION: No pulmonary embolism. No pneumonia. Subsegmental atelectasis in thelingula and lung bases. Small pleural effusions. Bony metastaticdisease. ACTIONABLE ITEMS/RECOMMENDATIONS*: None. *An Actionable Finding is a finding that may be unrelated to the originalreason for imaging but potentially actionable, meaning furtherinvestigation may be necessary. The Actionable Findings Vigilance Unit(AFVU) assists medical providers with responding to additional radiologicfindings that are unexpected and potentially actionable. Franky Edward MD IMG CT ORDERABLES Final Result * US Leg Venous Doppler Bilateral (02/09/2025 3:35 PM CDT) Anatomical Region Laterality Modality Leg, Extremity Ultrasound 02/09/2025 4:08 PM CDT Impressions 02/09/2025 4:20 PM CDT No definitive deep venous thrombosis in the visualized veins of the bilateral lower extremities as described above. ACTIONABLE ITEMS/RECOMMENDATIONS*: None. *An Actionable Finding is a finding that may be unrelated to the original reason for imaging but potentially actionable, meaning further investigation may be necessary. The Actionable Findings Vigilance Unit (AFVU) assists medical providers with responding to additional radiologic findings that are unexpected and potentially actionable. Narrative 02/09/2025 4:20 PM CDT Examination: US LEG VENOUS DOPPLER BILATERAL on 02/09/2025 3:35 PM. Clinical History: Left breast cancer. Anemia. Dyspnea. Pneumonia. Fatigue. Indication: Bilateral lower extremity edema. Comparison: None available. TECHNIQUE: Sonographic evaluation of the deep veins of the bilateral lower extremities was performed assessing grayscale appearance, color and spectral Doppler flow, and compressibility. FINDINGS: The bilateral common femoral, femoral, proximal deep femoral, and popliteal veins and saphenofemoral junctions demonstrate color/spectral Doppler flow and compressibility. The visualized bilateral anterior tibial and posterior tibial veins demonstrate color/spectral Doppler flow. The visualized right peroneal vein demonstrates color/spectral Doppler flow. The left peroneal vein could not be visualized. Procedure Note Elvin Mcconnell MD - 02/09/2025 Examination: US LEG VENOUS DOPPLER BILATERAL on 02/09/2025 3:35 PM. Clinical History: Left breast cancer. Anemia. Dyspnea. Pneumonia.Fatigue. Indication: Bilateral lower extremity edema. Comparison: None available. TECHNIQUE: Sonographic evaluation of the deep veins of the bilateral lowerextremities was performed assessing grayscale appearance, color andspectral Doppler flow, and compressibility. FINDINGS: The bilateral common femoral, femoral, proximal deep femoral, andpopliteal veins and saphenofemoral junctions demonstrate color/spectralDoppler flow and compressibility. The visualized bilateral anterior tibial and posterior tibial veinsdemonstrate color/spectral Doppler flow. The visualized right peronealvein demonstrates color/spectral Doppler flow. The left peroneal veincould not be visualized. IMPRESSION: No definitive deep venous thrombosis in the visualized veins of thebilateral lower extremities as described above. ACTIONABLE ITEMS/RECOMMENDATIONS*: None. *An Actionable Finding is a finding that may be unrelated to the originalreason for imaging but potentially actionable, meaning furtherinvestigation may be necessary. The Actionable Findings Vigilance Unit(AFVU) assists medical providers with responding to additional radiologicfindings that are unexpected and potentially actionable. us Franky Edward MD [facility] [place] US ORDERABLES Final Result * Vancomycin Trough Vancomycin trough on 02/09 @ 1230. Nurse please coordinate with lab to draw troughapproximately 11 - 11.5 hours after previous vancomycin dose. Hold vancomycin if trough is greater than 20 and notify provider. Thanks! (02/09/2025 12:16 PM CDT) Vancomycin Trough 16.5 5.0 - 20.0 mcg/mL 02/09/2025 1:04 PM CDT [facility] Vancomycin Trough Dose Time 02/09/2025 1:04 PM CDT [facility] Vancomycin Trough Dose Date 02/09/2025 1:04 PM CDT [facility] Blood Peripheral blood specimen / Unknown Venipuncture / Unknown 02/09/2025 12:16 PM CDT 02/09/2025 12:26 PM CDT Narrative [facility] - 02/09/2025 1:04 PM CDT Toxic Trough Level: >20 mcg/ml Uncomplicated MRSA bacteremia: 10-15mcg/mL MRSA bacteremia or endocarditis and other severe invasive MRSA infections (PJI, HAP, ACCOUNTING CLERK infections): 15-20mcg/mL us Franky Edward MD LAB BLOOD ORDERABLES Final Resul t [facility] [address] [place] [address] * Echocardiogram Strain/Speckle Tracking (02/09/2025 11:31 AM CDT) EF 65 ISCV 02/09/2025 9:38 AM CDT Narrative ISCV - 02/09/2025 1:09 PM CDT Echocardiographic Report Interpretation Summary A complete two-dimensional transthoracic echocardiogram was performed (2D, M- mode, Doppler and color flow Doppler). The study was technically adequate and no previous studies are available for comparison. -LV is dilated using volumetric criteria. Left ventricular systolic function is normal. LV ejection fraction calculated using the bi-plane method of disks is 65 %. -The right ventricle is normal in size and function. -Moderate valvular aortic stenosis. -Mild mitral annular calcification. 6 mmHg mean mitral valve gradient at 73 BPM. -Right ventricular systolic pressure is elevated at 50-55 mmHg. -There is no pericardial effusion. Left Ventricle: LV is dilated using volumetric criteria. Relative width thickness measures suggest concentric changes. Left ventricular systolic function is normal. LV ejection fraction calculated using the bi-plane method of disks is 65 %. The left ventricular wall motion is normal. I WMSI = 1.00 % Normal = 100 Borderline GLS Segments Size X - Cannot 2 - 1-2 small Interpret 1 - Normal Hypokinetic 3 - Akinetic 4 - Dyskinetic3- 5 moderate 5 - Aneurysmal 6-14 large 15-16 diffuse 3D imaginD volumes were not performed in this study. Cardiac Mechanics/Speckle Tracking Imaging: Borderline global longitudinal peak systolic value. Strain Imaging was performed; GLPS avg = -17.8%. Diastology: Unable to evaluate due to mitral valve pathology. Right Ventricle: The right ventricle is normal in size and function. Atria: The left atrium is moderately dilated. Right atrial size is normal. Mitral Valve: Mild mitral annular calcification. 6 mmHg mean mitral valve gradient at 73 BPM. There is trace mitral regurgitation. Tricuspid Valve: The tricuspid valve is not well visualized, but is grossly normal. There is trace tricuspid regurgitation. Right ventricular systolic pressure is elevated at 50- 55 mmHg. Aortic Valve: The aortic valve is trileaflet. Mild aortic valve calcification. Moderate valvular aortic stenosis. The calculated aortic valve area is 1.7 sq.cm. The calculated mean gradient across the aortic valve is 33 mmHg. The peak velocity is 3.8 m/sec. There is trace aortic regurgitation. Pulmonic Valve: The pulmonic valve is not well visualized. Trace pulmonic valvular regurgitation. Great Vessels: The aortic root is normal size. The inferior vena cava demonstrates normal size and normal respiratory variation. Pericardium/Pleural: There is no pericardial effusion. MMode/2D Measurements IVSd: 0.85 cm LVIDd: 4.5 cm LVIDs: 3.0 cm LVPWd: 1.2 cm FS: 32.9 % Ao root diam: 2.8 cm Ao root area: 6.2 cm2 LA dimension: 4.7 cm asc Aorta Diam: 3.3 cm LVOT diam: 2.4 cm LVOT area: 4.4 cm2 EDV(MOD-A4C): 156.5 ml EDV(MOD-A2C): 166.1 ml ESV(MOD-A4C): 61.4 ml ESV(MOD-A2C): 54.2 ml EF(MOD-A4C): 60.8 % EF(MOD-A2C): 67.3 % LAV(MOD-A2C): 92.8 ml EDV(MOD-bp): 164.4 ml LAV(MOD-A4C): 101.6 ml ESV(MOD-bp): 57.1 ml LAV(MOD-bp): 101.6 ml EF(MOD-bp): 65.3 % LAV(MOD-bp) Indexed: 45.5 ml/m2 RA A4C-A/L_phl: 14.7 cm2 EDV (MOD-bp) Index: 73.7 ml/m2 ESV (MOD-bp) Index: 25.6 ml/m2 RWT: 0.52 cm TAPSE (>1.6): 2.6 cm Time Measurements MV Prop V_phl: 64.7 cm/sec Doppler Measurements MV E max timbo: 161.8 cm/sec MV V2 max: 191.0 cm/sec MV A max timbo: 191.6 cm/sec MV max P.6 mmHg MV E/A: 0.84 MV V2 mean: 116.3 cm/sec MV mean P.1 mmHg MV V2 VTI: 47.7 cm MVA(VTI): 3.4 cm2 MV dec time: 0.24 sec Ao V2 max: 384.4 cm/sec Ao max P.1 mmHg Ao V2 mean: 273.5 cm/sec Ao mean P.2 mmHg Ao V2 VTI: 96.2 cm WILLIAM(I,D): 1.7 cm2 WILLIAM(V,D): 1.8 cm2 AI dec slope: 383.8 cm/sec2 LV V1 max P.4 mmHg LV V1 mean P.2 mmHg LV V1 max: 153.5 cm/sec LV V1 mean: 94.8 cm/sec LV V1 VTI: 36.9 cm SV(LVOT): 162.2 ml PA V2 max: 117.8 cm/sec PA max P.5 mmHg PA V2 mean: 75.3 cm/sec PA mean P.7 mmHg PA V2 VTI: 22.5 cm Med Peak E' Timbo: 4.6 cm/sec Lat Peak E' Timbo: 5.3 cm/sec TR max timbo: 358.5 cm/sec RAP systole: 3.0 mmHg TR max P.4 mmHg RVSP(TR): 54.4 mmHg WILLIAM Index (I,D): 0.76 WILLIAM Index (V,D): 0.79 Dimensionless Index: 0.40 E/e' (avg): 32.6 E/e' (lat): 30.6 E/e' (sept): 34.8 Procedure Note Hola Prasad MD - 02/09/2025 Echocardiographic Report Interpretation Summary A complete two-dimensional transthoracic echocardiogram was performed (2D,M- mode, Doppler and color flow Doppler). The study was technicallyadequate and no previous studies are available for comparison. -LV is dilated using volumetric criteria. Left ventricular systolicfunction is normal. LV ejection fraction calculated using the bi-planemethod of disks is 65 %. -The right ventricle is normal in size and function. -Moderate valvular aortic stenosis. -Mild mitral annular calcification. 6 mmHg mean mitral valve gradient at73 BPM. -Right ventricular systolic pressure is elevated at 50-55 mmHg. -There is no pericardial effusion. Left Ventricle: LV is dilated using volumetric criteria. Relative width thickness measuressuggest concentric changes. Left ventricular systolic function is normal.LV ejection fraction calculated using the bi-plane method of disks is 65%. The left ventricular wall motion is normal. I WMSI = 1.00 % Normal = 100 Borderline GLS Segments Size X - Cannot 2 - 1-2small Interpret 1 - Normal Hypokinetic 3 - Akinetic 4 - Dyskinetic3-5moderate 5 - Aneurysmal6-14 large 15-16 diffuse 3D imaginD volumes were not performed in this study. Cardiac Mechanics/Speckle Tracking Imaging: Borderline global longitudinal peak systolic value. Strain Imaging wasperformed; GLPS avg = -17.8%. Diastology: Unable to evaluate due to mitral valve pathology. Right Ventricle: The right ventricle is normal in size and function. Atria: The left atrium is moderately dilated. Right atrial size is normal. Mitral Valve: Mild mitral annular calcification. 6 mmHg mean mitral valve gradient at 73BPM. There is trace mitral regurgitation. Tricuspid Valve: The tricuspid valve is not well visualized, but is grossly normal. Thereis trace tricuspid regurgitation. Right ventricular systolic pressure iselevated at 50-55 mmHg. Aortic Valve: The aortic valve is trileaflet. Mild aortic valve calcification. Moderatevalvular aortic stenosis. The calculated aortic valve area is 1.7 sq.cm.The calculated mean gradient across the aortic valve is 33 mmHg. The peakvelocity is 3.8 m/sec. There is trace aortic regurgitation. Pulmonic Valve: The pulmonic valve is not well visualized. Trace pulmonic valvularregurgitation. Great Vessels: The aortic root is normal size. The inferior vena cava demonstrates normalsize and normal respiratory variation. Pericardium/Pleural: There is no pericardial effusion. MMode/2D Measurements IVSd: 0.85 cmLVIDd: 4.5 cm LVIDs: 3.0 cm LVPWd: 1.2 cm FS: 32.9 %Ao root diam: 2.8 cm Ao root area: 6.2 cm2 LA dimension: 4.7 cm asc Aorta Diam: 3.3 cmLVOT diam: 2.4 cm LVOT area: 4.4 cm2 EDV(MOD-A4C): 156.5 mlEDV(MOD-A2C): 166.1 ml ESV(MOD-A4C): 61.4 mlESV(MOD-A2C): 54.2 ml EF(MOD-A4C): 60.8 %EF(MOD-A2C): 67.3 % LAV(MOD-A2C): 92.8 ml EDV(MOD-bp): 164.4 mlLAV(MOD-A4C): 101.6 ml ESV(MOD-bp): 57.1 mlLAV(MOD-bp): 101.6 ml EF(MOD-bp): 65.3 %LAV(MOD-bp) Indexed: 45.5 ml/m2 RA A4C-A/L_phl: 14.7 cm2EDV (MOD-bp) Index: 73.7 ml/m2 ESV (MOD-bp) Index: 25.6 ml/m2RWT: 0.52 cm TAPSE (>1.6): 2.6 cm Time Measurements MV Prop V_phl: 64.7 cm/sec Doppler Measurements MV E max timbo: 161.8 cm/secMV V2 max: 191.0 cm/sec MV A max timbo: 191.6 cm/secMV max P.6 mmHg MV E/A: 0.84MV V2 mean: 116.3 cm/sec MV mean P.1 mmHg MV V2 VTI: 47.7 cm MVA(VTI): 3.4 cm2 MV dec time: 0.24 secAo V2 max: 384.4 cm/sec Ao max P.1 mmHg Ao V2 mean: 273.5 cm/sec Ao mean P.2 mmHg Ao V2 VTI: 96.2 cm WILLIAM(I,D): 1.7 cm2 WILLIAM(V,D): 1.8 cm2 AI dec slope: 383.8 cm/sec2LV V1 max P.4 mmHg LV V1 mean P.2 mmHg LV V1 max: 153.5 cm/sec LV V1 mean: 94.8 cm/sec LV V1 VTI: 36.9 cm SV(LVOT): 162.2 mlPA V2 max: 117.8 cm/sec PA max P.5 mmHg PA V2 mean: 75.3 cm/sec PA mean P.7 mmHg PA V2 VTI: 22.5 cm Med Peak E' Timbo: 4.6 cm/secLat Peak E' Timbo: 5.3 cm/sec TR max timbo: 358.5 cm/secRAP systole: 3.0 mmHg TR max P.4 mmHg RVSP(TR): 54.4 mmHg WILLIAM Index (I,D): 0.76AVA Index (V,D): 0.79 Dimensionless Index: 0.40E/e' (avg): 32.6 E/e' (lat): 30.6E/e' (sept): 34.8 Redd Rodriguez MD CV ECHO ORDERABLES Final Result ISCV * US RENAL (02/09/2025 5:51 AM CDT) Anatomical Region Laterality Modality Abdomen Ultrasound 02/09/2025 6:31 AM CDT Impressions 02/09/2025 6:32 AM CDT No evidence of hydronephrosis. ACTIONABLE ITEMS/RECOMMENDATIONS*: None. *An Actionable Finding is a finding that may be unrelated to the original reason for imaging but potentially actionable, meaning further investigation may be necessary. The Actionable Findings Vigilance Unit (AFVU) assists medical providers with responding to additional radiologic findings that are unexpected and potentially actionable. Narrative 02/09/2025 6:32 AM CDT Examination: US RENAL on 02/09/2025 5:51 AM. Clinical History: Anemia Dyspnea Pneumonia Fatigue. Indication: Increased Creatinine Level. Comparison: None available. TECHNIQUE: The kidneys and bladder were evaluated with grayscale and color Doppler ultrasound. FINDINGS: Left Kidney: The left kidney measures 11.7 cm in craniocaudal extent. No evidence of hydronephrosis. No masses. Right Kidney: Right kidney measures 10.6 cm in craniocaudal extent. No evidence of hydronephrosis. No masses. Bladder: The bladder is not completely assessed as it was not distended. Procedure Note Katiuska Joel MD - 02/09/2025 Examination: US RENAL on 02/09/2025 5:51 AM. Clinical History: Anemia Dyspnea Pneumonia Fatigue. Indication: Increased Creatinine Level. Comparison: None available. TECHNIQUE: The kidneys and bladder were evaluated with grayscale andcolor Doppler ultrasound. FINDINGS: Left Kidney: The left kidney measures 11.7 cm in craniocaudal extent. Noevidence of hydronephrosis. No masses. Right Kidney: Right kidney measures 10.6 cm in craniocaudal extent. Noevidence of hydronephrosis. No masses. Bladder: The bladder is not completely assessed as it was notdistended. IMPRESSION: No evidence of hydronephrosis. ACTIONABLE ITEMS/RECOMMENDATIONS*: None. *An Actionable Finding is a finding that may be unrelated to the originalreason for imaging but potentially actionable, meaning furtherinvestigation may be necessary. The Actionable Findings Vigilance Unit(AFVU) assists medical providers with responding to additional radiologicfindings that are unexpected and potentially actionable. us Redd Rodriguez MD [facility] [place] US ORDERABLES Final Result * (ABNORMAL) Hepatic Function Panel (02/09/2025 5:25 AM CDT) Bilirubin Total 1.1 0.0 - 1.2 mg/dL 02/09/2025 5:13 PM CDT [facility] Comment:Indocyanine Green (I CG) may cause falsely elevated bilirubin results. Total and direct bilirubin must not be measured from samples containing indocyanine green. False elevation of total bilirubin can be seen in patients with IgG concentrations above 28 g/L. Bilirubin Direct 0.4(H) 0.0 - 0.2 mg/dL 02/09/2025 5:13 PM CDT [facility] Comment:Indocyanine Green (I CG) may cause falsely elevated bilirubin results. Total and direct bilirubin must not be measured from samples containing indocyanine green. Bilirubin Indirect 0.7 0.0 - 1.0 mg/dL 02/09/2025 5:13 PM CDT [facility] Tot Protein 6.1(L) 6.4 - 8.3 gm/dL 02/09/2025 5:13 PM CDT [facility] Alkaline Phosphatase 58 35 - 104 U/L 02/09/2025 5:13 PM CDT [facility] Albumin Level 3.3(L) 3.5 - 5.2 gm/dL 02/09/2025 5:13 PM CDT [facility] AST 17 <=32 U/L 02/09/2025 5:13 PM CDT [facility] ALT 9 <=33 U/L 02/09/2025 5:13 PM CDT [facility] Blood Peripheral blood specimen / Unknown Venipuncture / Unknown 02/09/2025 5:25 AM CDT 02/09/2025 5:46 AM CDT Franky Edward MD LAB BLOOD ORDERABLES Final Resul t Performing Organization Address [facility] de Phone Number [address] [address] * Hemoglobin A1c (02/09/2025 5:25 AM CDT) Hemoglobin A1c 5.3 4.3 - 5.6 % 02/09/2025 10:10 PM CDT [facility] Blood Peripheral blood specimen / Unknown Venipuncture / Unknown 02/09/2025 5:25 AM CDT 02/09/2025 5:46 AM CDT Narrative [facility] - 02/09/2025 10:10 PM CDT HbA1c values >=6.5% are diagnostic of diabetes mellitus. Diagnosis should be confirmed by repeat testing. Therapeutic Action suggested: >8.0% HbA1c; Goal of therapy: <7.0% HbA1c us Franky Edward MD LAB BLOOD ORDERABLES Final Resul t Performing Organization Address City/[facility] Co de Phone Number [address] [address] * Lipid Panel (02/09/2025 5:25 AM CDT) Cholesterol Total 119 <200 mg/dL 025 10:17 PM CDT [facility] Comment: ATP III Classification of Total Cholesterol - Primary Target of Therapy (in mg/dL): <200 Desirable 200-239 Borderline high >=240 High Triglyceride 95 <150 mg/dL 02/09/2025 10:17 PM CDT [facility] Comment: ATP III Classification of Serum Triglycerides Primary Target of Therapy (in mg/dL): <150 Normal 150-199 Borderline high 200-499 High >=500 Very high Non-fasting triglycerides >200 mg/dL may be followed up with a fasting Lipid Panel. Calculated LDL-C may be falsely decreased when non-fasting triglycerides >200 mg/dL. HDL Cholesterol 54 >=40 mg/dL 10:17 PM CDT [facility] LDL Cholesterol 46 <=100 mg/dL 02/09/2025 10:17 PM CDT [facility] Comment: ATP III Classification of LDL Cholesterol Primary Target of Therapy (in mg/dL): <100 Optimal 100-129 Near optimal/above optimal 130-159 Borderline high 160-189 High >=190 Very high LDL-C is calculated using the Friedewald equation. Is patient fasting? 02/09 10:17 PM CDT [facility] Blood Peripheral blood specimen / Unknown Venipuncture / Unknown 02/09/2025 5:25 AM CDT 02/09/2025 5:46 AM CDT us Franky Edward MD LAB BLOOD ORDERABLES Final Resul t Performing Organization Address City/State/[facility] Co de Phone Number [facility] [address] [place] [address] * Transfuse RBC:Transfusion Date: 02/08/2025 (02/09/2025 12:54 AM CDT) us Destiny More MD BLOOD TRANSFUSION ORDERABLES Fin al Result * Menendez Misc Test (02/08/2025 10:59 PM CDT) Demarest Mis Test Result See Footnote 02/10/2025 3:38 PM CDT [facility] Comment: Test Result Flag Unit RefValue Chloride, Random, U 129 mmol/L REFERENCE VALUE Random urine chloride may be interpreted in conjunction with serum chloride, using both values to calculate fractional excretion of chloride. Test Performed by: [facility] - [address] [address] Public Safety Director: Cresencio Mane Ph.D.; CLIA# [id number] Non-Blood (Other) Non-blood Collection / Unknown 02/08/2025 10:59 PM CDT 02/09/2025 11:09 AM CDT us Franky Edward MD LAB BLOOD ORDERABLES Final Resul t [facility] See report for performing lab information. * Sodium Urine (02/08/2025 10:59 PM CDT) Urine Sodium 119 mmol/L 02/09/2025 12:00 AM CDT [facility] Comment:Normal range not william ilable for collections less than 24 hours in duration. Urine Voided urine specimen / Unknown Non-blood Collection / Unknown 02/08/2025 10:59 PM CDT 02/08/2025 11:33 PM CDT us Redd Rodriguez MD URINE ORDERABLES Final Result Performing Organization Address [facility] [place] [address] * Potassium Urine (02/08/2025 10:59 PM CDT) Urine Potassium 37 mmol/L 12:00 AM CDT [facility] Comment:Normal range not william ilable for collections less than 24 hours in duration. Urine Voided urine specimen / Unknown Non-blood Collection / Unknown 02/08/2025 10:59 PM CDT 02/08/2025 11:33 PM CDT us Redd Rodriguez MD URINE ORDERABLES Final Result Performing Organization Address City/[facility] Hospital/ZIP Co de Phone Number [address] [address] * Creatinine Urine (02/08/2025 10:59 PM CDT) Pathologist [facility] Urine Creatinine 103.9 29.0 - 226.0 mg/dL 02/09/2025 12:00 AM CDT [facility] Urine Voided urine specimen / Unknown Non-blood Collection / Unknown 02/08/2025 10:59 PM CDT 02/08/2025 11:33 PM CDT Narrative [facility] - 02/09/2025 12:00 AM CDT The reference range listed is for first morning urine collection. Redd Rodriguez MD URINE ORDERABLES Final Result Performing Organization Address City/[facility] Hospital/ZIP Co de Phone Number [address] [address] * MRSA Screening Culture (02/08/2025 4:11 PM CDT) [facility] MRSA Screening Culture No Methicillin-Resist ant Staphylococcus aureus isolated. 02/10/2025 12:45 PM CDT [facility] Swab (Nares, Left) Non-blood Collection / Unknown 02/08/2025 4:11 PM CDT 02/08/2025 4:16 PM CDT Narrative [facility] - 02/10/2025 12:45 PM CDT Testing is performed using PBP2a antigen detection and cefoxitin screen on isolated S. aureus colonies. This methodology may not detect uncommon mechanisms of methicillin resistance in S. aureus. Redd Rodriguez MD MICROBIOLOGY - GENERAL ORDERABLE S Final Result [address] [address] * (ABNORMAL) Urinalysis w/Reflex Culture Grouper (02/08/2025 3:43 PM CDT) Pathologist [facility] Urine Appearance Clear Clear 02/09/20 4:07 PM CDT [facility] Comment:This result was prev iously suppressed from the chart. Urine Color Straw Colorless, Straw, Yellow, Dark Yellow, Straw-Yellow 02/08/2025 4:07 PM CDT [facility] Comment:This result was prev iously suppressed from the chart. Urine Specific Beaver 1.016 1.003 - 1.035 02/08/2025 4:07 PM CDT [facility] Comment:This result was prev iously suppressed from the chart. Urine pH 6.0 5.0 - 8.0 02/08/2025 4:07 PM CDT [facility] Comment:This result was prev iously suppressed from the chart. Urine Glucose Negative Negative mg/dL 02/08/2025 4:07 PM CDT [facility] Comment:This result was prev iously suppressed from the chart. Urine Ketones Negative Negative mg/dL 02/08/2025 4:07 PM CDT [facility] Comment:This result was prev iously suppressed from the chart. Urine Blood Small(A) Negative 02/08/2025 4:07 PM CDT [facility] Comment:This result was prev iously suppressed from the chart. Urine Protein Negative Negative mg/dL 02/08/2025 4:07 PM CDT [facility] Comment:This result was prev iously suppressed from the chart. Urine Bilirubin Negative Negative 4:07 PM CDT [facility] Urine Urobilinogen Negative Negative 02/08/2025 4:07 PM CDT [facility] Urine Nitrite Negative Negative 02/08/2025 4:07 PM CDT [facility] Comment:This result was prev iously suppressed from the chart. Urine Leukocyte Esterase Large(A) Negative 02/08/2025 4:07 PM CDT [facility] Comment:This result was prev iously suppressed from the chart. Urine Mucous Trace Not Seen, Trace /HPF 02/08/2025 4:07 PM CDT [facility] Comment:This result was prev iously suppressed from the chart. Urine Bacteria Not Seen Not Seen /HPF 02/08/2025 4:07 PM CDT [facility] Comment:This result was prev iously suppressed from the chart. Urine Squamous Epithelial Cells OCC Not Seen, OCC, Rare /HPF 02/08/2025 4:07 PM CDT [facility] Comment:This result was prev iously suppressed from the chart. UA Transitional Epi OCC(A) Not Seen, <1 /HPF 02/08/2025 4:07 PM CDT [facility] Comment:This result was prev iously suppressed from the chart. Urine WBC 33(H) <=2 /HPF 02/08/2025 4:07 PM CDT [facility] Urine RBC 2 <=2 /HPF 02/08/2025 4:07 PM CDT [facility] Urine (Urine Clean Catch) Non-blood Collection / Unknown 02/08/2025 3:43 PM CDT 02/08/2025 3:49 PM CDT Narrative [facility] - 02/08/2025 4:07 PM CDT Some reporting parameters within the Urinalysis test have changed due to the implementation of new instrumentation in the [facility], allowing greater sensitivity of measurement. Urinalysis results reported by the [facility] using existing instrumentation, as well as Urinalysis testing performed manually or by back-up methodology at the main [place], will remain relatively unchanged. New reporting parameters and units will now be reported for all campuses. us Destiny More MD URINE ORDERABLES Final Result Performing Organization Address City/[facility] Hospital/ZIP Co de Phone Number [address] [address] * Urine Culture (02/08/2025 3:43 PM CDT) Pathologist [facility] Urine Culture Normal site leon present. Generally of low significance. Correlate with clinical data and culture history. 02/10/2025 1:49 PM CDT [facility] Urine (Urine Clean Catch) Non-blood Collection / Unknown 02/08/2025 3:43 PM CDT 02/08/2025 3:49 PM CDT Destiny More MD MICROBIOLOGY - GENERAL ORDERABLE S Final Result [address] [address] * Confirm ABORh (02/08/2025 10:54 AM CDT) ABORh Confirm A POS 02/08/2025 10:54 AM CDT [facility] Blood Peripheral blood specimen / Unknown Venipuncture / Unknown 02/08/2025 10:54 AM CDT 02/08/2025 11:20 AM CDT Destiny More MD BLOOD BANK TEST ORDERABLES Final Result [facility] [address] [place] [address], [place] * Type and Screen (02/08/2025 10:53 AM CDT) ABORh A POS 02/08/2025 10:23 AM CDT [facility] ABSC Negative 02/08/2025 10:23 AM CDT [facility] Clot Expiration 02/11/2025 23:59 02/08/2025 10:23 AM CDT [facility] Historical Record Check No History 02/08/2025 10:23 AM CDT [facility] Blood Peripheral blood specimen / Unknown Venipuncture / Unknown 02/08/2025 10:53 AM CDT 02/08/2025 11:20 AM CDT Destiny More MD BLOOD BANK TEST ORDERABLES Final Result [facility] [address] [place] [address], [place] * Prepare RBC:Transfusion Date: 02/08/2025; Transfusion Indications: Symptomatic Anemia- patient reports symptoms of fatigue, weakness, shortness of breath, dizziness or lightheadedness; accc, 1 Units (02/08/2025 10:23 AM CDT) Product Code [id number] [facility] Product Code Text Red Blood Cells [facility] QTY Ordered 1 [facility] Dispense Status Transfused [facility] Unit Expiration [id number] [facility] Unit Number [id number] [facility] - TRANSFUSION SERVICES Unit Blood Type A- [facility] TRANSF[facility] Bag Volume 383 [facility] XM Interpretation Compatible U T [facility] - TRANSFUSION SERVICES Unit Blood Type Barcode 0600 [facility] PRBC Product Ready For Recyclable Materials Distributor B2 Blood Bank [facility] RBC Product Status 1 RBC approved [facility] Comment:Order Form 03 when r antonella for product issue. Blood us Destiny More MD BLOOD BANK PRODUCT ORDERABLES Fi nal Result [facility] [address] [place] [address], * Respiratory Multiplex PCR Panel, Nasopharyngeal Swab (02/08/2025 10:07 AM CDT) Adenovirus Not Detected Not Detected 02/08/2025 12:02 PM CDT [facility] Coronavirus 229E Not Detected Not Detected 02/08/2025 12:02 PM CDT [facility] Coronavirus HKU1 Not Detected Not Detected 02/08/2025 12:02 PM CDT [facility] Coronavirus NL63 Not Detected Not Detected 02/08/2025 12:02 PM CDT [facility] Coronavirus OC43 Not Detected Not Detected 02/08/2025 12:02 PM CDT [facility] COVID-19 (SARS-CoV-2) Not Detected Not Detected 02/08/2025 12:02 PM CDT [facility] Human Metapneumovirus Not Detected Not Detected 02/08/2025 12:02 PM CDT [facility] Human Rhinovirus/Enterov irus Not Detected Not Detected 02/08/2025 12:02 PM CDT [facility] Influenza A Not Detected Not Detected 02/08/2025 12:02 PM CDT [facility] Influenza A H1 Not Detected Not Detected 02/08/2025 12:02 PM CDT [facility] Influenza A H1 2009 Not Detected Not Detected 02/08/2025 12:02 PM CDT [facility] Influenza A H3 Not Detected Not Detected 02/08/2025 12:02 PM CDT [facility] Influenza B Not Detected Not Detected 02/08/2025 12:02 PM CDT [facility] Parainfluenza Virus 1 Not Detected Not Detected 02/08/2025 12:02 PM CDT [facility] Parainfluenza Virus 2 Not Detected Not Detected 02/08/2025 12:02 PM CDT [facility] Parainfluenza Virus 3 Not Detected Not Detected 02/08/2025 12:02 PM CDT [facility] Parainfluenza Virus 4 Not Detected Not Detected 02/08/2025 12:02 PM CDT [facility] Respiratory Syncytial Virus Not Detected Not Detected 02/08/2025 12:02 PM CDT [facility] Bordetella parapertussis Not Detected Not Detected 02/08/2025 12:02 PM CDT [facility] Bordetella pertussis Not Detected Not Detected 02/08/2025 12:02 PM CDT [facility] Chlamydophila pneumoniae Not Detected Not Detected 02/08/2025 12:02 PM CDT [facility] Mycoplasma pneumoniae Not Detected Not Detected 02/08/2025 12:02 PM CDT [facility] Swab Nasopharyngeal structure / Unknown Non-blood Collection / Unknown 02/08/2025 10:07 AM CDT 02/08/2025 10:13 AM CDT [facility] [facility] - 02/08/2025 12:02 PM CDT The assay is a qualitative multiplex PCR assay to aid in the diagnosis of respiratory pathogens through simultaneous qualitative detection and identification of multiple pathogens directly from nasopharyngeal swabs (WEB PUBLISHER) from individuals with respiratory symptoms. Testing is performed using the [employer] FilmArray Respiratory Panel 2.1 (RP2.1) on the [employer]® XAPPmediach® System. The following organisms are identified using the [employer] RP 2.1 Panel: Adenovirus, Human Coronavirus (229E, HKU1, NL63, and OC43), Severe Acute Respiratory Syndrome Coronavirus 2 (SARS-CoV-2), Human Metapneumovirus, Human Rhinovirus/Enterovirus, Influenza A, including subtypes (H1, H3 and H1-2009), Influenza B, Parainfluenza Virus (1, 2, 3, and 4), Respiratory Syncytial Virus, Bordetella parapertussis, Bordetella pertussis, Chlamydia pneumoniae, and Mycoplasma pneumoniae A result of Not Detected" does not exclude the possibility of the presence of one or more of the pathogens at or below the detection limits of this assay nor does exclude the possibility of pathogens not detected by this panel. Non-infectious causes of respiratory symptoms should also be considered in such cases. Internal controls are used to monitor all stages of the testing process including amplification inhibition. If inhibition is detected, testing is repeated and if inhibition is confirmed the specimen is resulted as "Invalid". When an "Invalid" result occurs, it is recommended to wait 3 days before submitting a new specimen for testing if clinically indicated. This is an FDA-approved assay and its performance characteristics were verified by the microbiology laboratory at the [facility] (CLIA Accreditation # [id number] and CAP Accreditation # [id number]). Results must be interpreted within the context of all relevant clinical and laboratory findings. Assay should not be used for monitoring response to therapy. us Destiny More MD MICROBIOLOGY - GENERAL ORDERABLE S Final Result [id number] [place] [address] * (ABNORMAL) Comprehensive Metabolic Panel (02/08/2025 10:06 AM CDT) Bilirubin Total 0.4 0.0 - 1.2 mg/dL 02/08/2025 11:02 AM CDT [facility] Comment:Indocyanine Green (I CG) may cause falsely elevated bilirubin results. Total and direct bilirubin must not be measured from samples containing indocyanine green. False elevation of total bilirubin can be seen in patients with IgG concentrations above 28 g/L. eGFR 44(L) >=60 mL/min/1. 73 sq. m 02/08/2025 11:02 AM [facility] Comment: The eGFRcr is calculated with the 2020 CKD-EPI creatinine equation using creatinine, patient's age, and sex for adults 18 years of age and older. Other factors, especially muscle mass, may affect accuracy and need to be considered. According to the Kidney Disease: Improving Global Outcomes (KDIGO) CKD Work Group 2012 Clinical Practice Guideline, chronic kidney disease (CKD) is defined as the abnormalities of kidney structure or function, present for more than 3 months, with implications for health. CKD should be classified by cause, GFR category, and albuminuria category. KDIGO guidelines provide the following GFR categories. Stage / Description / GFR mL/min/1.73 m2: G1* / Normal or high / >= 90 G2* / Mildly decreased / 60-89 G3a / Mildly to moderately decreased / 45-59 G3b / Moderately to severely decreased / 30-44 G4 / Severely decreased / 15-29 G5 / Kidney failure / <15 *In the absence of evidence of kidney damage, neither G1 nor G2 fulfill criteria for CKD. Tot Protein 6.1(L) 6.4 - 8.3 gm/dL 02/08/2025 11:02 AM [facility] Calcium Level Total 9.1 8.2 - 10.2 mg/dL 02/08/2025 11:02 AM [facility] Alkaline Phosphatase 65 35 - 104 U/L 02/08/2025 11:02 AM [facility] Albumin Level 3.4(L) 3.5 - 5.2 gm/dL 02/08/2025 11:02 AM [facility] AST 14 <=32 U/L 02/08/2025 11:02 AM [facility] ALT 10 <=33 U/L 02/08/2025 11:02 AM [facility] Sodium Level 142 136 - 145 mmol/L 02/08/2025 11:02 AM [facility] Potassium Level 4.2 3.4 - 4.5 mmol/L 02/08/2025 11:02 AM [facility] Chloride 109(H) 98 - 107 mmol/L 02/08/2025 11:02 AM [facility] CO2 23 22 - 29 mmol/L 02/08/2025 11:02 AM CDT [facility] Anion Gap 10 4 - 14 mmol/L 02/08/2025 11:02 AM CDT [facility] Creatinine 1.27(H) 0.51 - 0.95 mg/dL 02/08/2025 11:02 AM CDT [facility] BUN 13 6 - 23 mg/dL 02/08/2025 11:02 AM CDT [facility] Glucose Level 137(H) 70 - 99 mg/dL 02/08/2025 11:02 AM CDT [facility] Comment: Effective 02/08/16, the glucose reference intervals have been updated based on [place] Diabetes Association guidelines (Standards of Medical Care in Diabetes 2016. Diabetes Care 2016; 39: S13-S22). Fasting blood glucose: Normal: 70-99 mg/dL Impaired fasting glucose (increased risk for diabetes or pre-diabetes): 100-125 mg/dL Diabetes mellitus: >/=126 mg/dL Random blood glucose: Normal: 70-199 mg/dL Note: Random glucose >100 mg/dL is associated with increased risk for diabetes. Blood Peripheral blood specimen / Unknown Venipuncture / Unknown 02/08/2025 10:06 AM CDT 02/08/2025 10:13 AM CDT us Destiny More MD LAB BLOOD ORDERABLES Final Resul t [id number] [place] [address] * (ABNORMAL) Cardiac Panel (02/08/2025 10:06 AM CDT) Creatine Kinase 146 26 - 192 U/L 02/08/2025 10:43 AM CDT [facility] CKMB 2.6 <=5.3 ng/mL 02/08/2025 10:43 AM CDT [facility] Troponin T 28(H) <=19 ng/L 02/08/2025 10:43 AM CDT [facility] Comment: Reference range established for age 21 - 89 years <= 19 ng/L, suggest retest at 3 to 6 hours later to rule out myocardial infarction > 19 to <=52 ng/L, possible myocardial injury; suggest retest at 3 hours - a change of < 20 ng/L, retest at 6 hours - a change of >= 20 ng/L, suggestive of myocardial infarction > 52 ng/L, suggestive of myocardial infarction Critical value will be reported when cTnT isf > 52 ng/L and only reported for the first in a series. Hemolyzed specimens with Hemolysis Index >100 (100 mg/dl or moderate hemolysis) may cause interferences and falsely low results. Blood Peripheral blood specimen / Unknown Venipuncture / Unknown 02/08/2025 10:06 AM CDT 02/08/2025 10:13 AM CDT us Destiny More MD LAB BLOOD ORDERABLES Final Resul t [facility] [address] [place] [address] * (ABNORMAL) Differential (02/08/2025 10:06 AM CDT) Total Cells 100 02/08/2025 10:42 AM CDT [facility] Manual Neutrophil % 82.0(H) 43.2 - 72.7 % 02/08/2025 10:42 AM CDT [facility] Comment:The Neutrophil count includes Bands. Manual Lymphocyte % 9.0(L) 16.8 - 46.2 % 02/08/2025 10:42 AM CDT [facility] Manual Monocyte % 6.0 5.1 - 12.5 % 02/08/2025 10:42 AM CDT [facility] Manual Eosinophil % 3.0 0.4 - 6.3 % 02/08/2025 10:42 AM CDT [facility] Metamyelocyte % 10:42 AM CDT [facility] Comment:The Metamyelocyte co unt includes Myelocytes. Manual Neutrophil Abs 2.46 1.95 - 7.25 K/uL 02/08/2025 10:42 AM CDT [facility] Manual Lymphocyte Abs 0.27(L) 1.01 - 3.24 K/uL 02/08/2025 10:42 AM CDT [facility] Manual Monocyte Abs 0.18(L) 0.24 - 0.85 K/uL 02/08/2025 10:42 AM CDT [facility] Manual Eosinophil Abs 0.09 0.02 - 0.50 K/uL 02/08/2025 10:42 AM CDT [facility] RBC Morphology PRESENT 02/08/2025 10:42 AM CDT [facility] PLT Morph Normal Normal 02/08/2025 10:42 AM CDT [facility] Anisocytosis Present(A) (none) 02/08/2025 10:42 AM CDT [facility] Ovalocyte Present(A) (none) 02/08/2025 10:42 AM CDT [facility] Blood Peripheral blood specimen / Unknown Venipuncture / Unknown 02/08/2025 10:06 AM CDT 02/08/2025 10:13 AM CDT us Destiny More MD LAB BLOOD ORDERABLES Final Resul t Performing Organization Address City/State/[facility] Co de Phone Number [facility] [address] [place] [address] * X-ray Chest 1 View (02/08/2025 9:47 AM CDT) Anatomical Region Laterality Modality Chest Digital Radiogra phy 02/08/2025 10:0 6 AM CDT Impressions 02/08/2025 10:07 AM CDT Patchy left basilar airspace opacity may reflect infection or aspiration. Suspected small left effusion. ACTIONABLE ITEMS/RECOMMENDATIONS*: None. *An Actionable Finding is a finding that may be unrelated to the original reason for imaging but potentially actionable, meaning further investigation may be necessary. The Actionable Findings Vigilance Unit (AFVU) assists medical providers with responding to additional radiologic findings that are unexpected and potentially actionable. Narrative 02/08/2025 10:07 AM CDT FULL RESULT: Examination: XR CHEST 1 VW on 02/08/2025 9:47 AM. Clinical History: Indication: Shortness of Breath Comparison: None Technique: Frontal radiograph of the chest Findings: Support Apparatus: None. Lungs/Pleura/Mediastinum: Poor inspiration. Patchy left basilar airspace opacity with probable left effusion, partially loculated. No definitive edema. No pneumothorax. Procedure Note Leno Choi MD - 02/08/2025 FULL RESULT: Examination: XR CHEST 1 VW on 02/08/2025 9:47 AM. Clinical History: Indication: Shortness of Breath Comparison: None Technique: Frontal radiograph of the chest Findings: Support Apparatus: None. Lungs/Pleura/Mediastinum: Poor inspiration. Patchy left basilar airspaceopacity with probable left effusion, partially loculated. No definitiveedema. No pneumothorax. IMPRESSION: Patchy left basilar airspace opacity may reflect infection or aspiration.Suspected small left effusion. ACTIONABLE ITEMS/RECOMMENDATIONS*: None. *An Actionable Finding is a finding that may be unrelated to the originalreason for imaging but potentially actionable, meaning furtherinvestigation may be necessary. The Actionable Findings Vigilance Unit(AFVU) assists medical providers with responding to additional radiologicfindings that are unexpected and potentially actionable. Destiny More MD IMG DIAGNOSTIC IMAGING ORDERABLE S Final Result after 04/13/2024 Insurance MEDICARE PART A AND B [facility] MEDICARE PART A AND B [facility] Advance Directives * Full Code (Latest Code Status on File) Date Activated Date Inactivated Comments 02/08/2025 8:34 AM Update based o n Advanced Directive Documentation * Full Code Date Activated Date Inactivated Comments 02/08/2025 8:32 AM 02/08/2025 8:32 AM Update based on Advanced Directive Documentation
[2025-04-13 14:43] LABS: Absolute Lymphocytes (CBC) 0.9 K/uL (0.7-4.9); Hematocrit 27.4 % (36.0-45.0); Hemoglobin 8.7 g/dL (12.0-15.0); MCH 30.2 pg (27.0-35.0); MCHC 31.8 g/dL (32.0-36.0); MCV 95.0 fL (80-100); MPV 8.1 fL (7.6-11.3); Nucleated RBC Absolute Count 0.0 (0-0); Nucleated Red Blood Cells % 0.0 % (0-0); RBC Red Blood Cell Count 2.88 M/uL (3.86-4.86); White Blood Count 5.10 thou/uL (4.3-10.9)
[2025-04-13 15:07] LABS: Potassium 4.3 mEq/L (3.5-5.1)
[2025-04-13 15:08] LABS: Anion Gap 7.3 mEq/L (5.0-15.0); BUN Blood Urea Nitrogen 13.0 mg/dL (7-18); Glucose Level 131.0 mg/dL (74-106); Magnesium 2.2; Troponin High Sensitivity 15.9 (<58.9)
--- NOTE | 2025-04-13 15:31 | ER ---
Nurse's Notes [facility] Name: Tanisha Newsome Age: 74 yrs Sex: Female : 1950 Arrival Date: 04/13/2025 Time: 13:50 Bed 17 Private MD: Diagnosis: Bradycardia, unspecified Presentation: 04/13 14:05 Chief complaint: EMS states: pt c/o dizziness upon standing today, general weakness iw since heart valve replacement and pacemaker placement 1 week ago, the home nurse stated her HR was 29 and to call EMS to transport to ER, pt had pacemaker and valve replacement done at [facility]. Coronavirus screen: At this time, the client does not indicate any symptoms associated with coronavirus-19. Ebola Screen: No symptoms or risks identified at this time. Initial Sepsis Screen: Does the patient meet any 2 criteria? No. Patient's initial sepsis screen is negative. Does the patient have a suspected source of infection? No. Patient's initial sepsis screen is negative. Risk Assessment: Do you want to hurt yourself or someone else? Patient reports no desire to harm self or others. Onset of symptoms was April 13, 2025. 14:05 Method Of Arrival: EMS: [facility] iw 14:05 Acuity: ELLEN 3 iw Historical: - Allergies: 14:07 Metformin HCl; iw - PMHx: 14:07 breast cancer; Depressive disorder; Diabetes mellitus; Hypercholesterolemia; iw Hypertensive disorder; - PSHx: 14:07 valve replacement; pacemaker; iw - Immunization history:: Adult Immunizations up to date. - Infectious Disease History:: Denies. - Social history:: Smoking status: Patient denies any tobacco usage or history of. Screenin:05 [facility] ED Fall Risk Assessment (Adult) History of falling in the last 3 months, me1 including since admission No falls in past 3 months (0 pts) Confusion or Disorientation No (0 pts) Intoxicated or Sedated No (0 pts) Impaired Gait Yes (1 pt) Mobility Assist Device Used Yes (1 pt) Altered Elimination No (0 pt) Score/Fall Risk Level 0 - 2 = Low Risk Maintained a safe environment, Provided non-skid footwear, Hourly rounding (assess needs \T\ fall precautionary measures) done. Abuse screen: Denies threats or abuse. Nutritional screening: No deficits noted. Tuberculosis screening: No symptoms or risk factors identified. Assessment: 14:05 General: Appears in no apparent distress. well groomed, well developed, well nourished, me1 Behavior is calm, cooperative, appropriate for age, Reports pt c/o dizziness upon standing today, general weakness since heart valve replacement and pacemaker placement 1 week ago, the home nurse stated her HR was 29. Pain: Denies pain. Neuro: Level of Consciousness is awake, alert, obeys commands, Oriented to person, place, time, situation, Appropriate for age. Neuro: Reports dizziness, upon standing today. Cardiovascular: Patient's skin is warm and dry. Respiratory: Airway is patent Respiratory effort is even, unlabored, Respiratory pattern is regular, symmetrical. GI: No signs and/or symptoms were reported involving the gastrointestinal system. : No signs and/or symptoms were reported regarding the genitourinary system. EENT: No signs and/or symptoms were reported regarding the EENT system. Derm: Skin is fragile, with poor turgor Skin is normal. Musculoskeletal: Circulation, motion, and sensation intact. Range of motion: intact in all extremities, Reports generalized weakness since heart valve replacement and pacemaker placement about a week ago. Vital Signs: 14:09 BP 133 / 67; Pulse 81; Resp 20; Pulse Ox 100% on 2 lpm NC; Weight 97.07 kg; Height 5 iw ft. 7 in. ; Pain 0/10; 15:00 BP 119 / 86; Pulse 78; Resp 19; Pulse Ox 100% on 2 lpm NC; me1 16:00 BP 136 / 52; Pulse 75; Resp 17; Pulse Ox 100% on 1 lpm NC; me1 17:00 BP 135 / 56; Pulse 77; Resp 16; Pulse Ox 100% on 2 lpm NC; me1 18:00 BP 135 / 56; Pulse 73; Resp 16; Pulse Ox 100% on 2 lpm NC; me1 19:00 BP 129 / 59; Pulse 72; Resp 17; Pulse Ox 100% on 2 lpm NC; me1 19:45 BP 140 / 65; Pulse 74; Resp 16; Pulse Ox 99% on 2 lpm NC; me1 14:09 Body Mass Index 33.52 (97.07 kg, 170.18 cm) iw 14:09 Pain Scale: Adult iw ED Course: 14:04 Patient arrived in ED. me1 14:05 Patient has correct armband on for positive identification. Bed in low position. Call me1 light in reach. Side rails up X2. Provided Education on: POC. Verbalized understanding.. Client placed on continuous cardiac and pulse oximetry monitoring. NIBP monitoring applied. surveillance system monitor on. Pulse ox on. NIBP on. 14:05 No provider procedures requiring assistance completed. me1 14:06 Zulema Cui FNP-C is [facility]. kb 14:06 Vinnie Avalos DO is Attending Physician. kb 14:07 Triage completed. iw 14:09 Arm band placed on. iw 14:19 Elizabeth Del Rio, RN is Primary Nurse. me1 14:29 EKG done, by ED staff, reviewed by Zulema MAJOR. me1 14:35 CBC with Diff Sent. me1 14:35 Magnesium Sent. me1 14:35 Troponin HS Sent. me1 15:01 XRAY Chest (1 view) In Process Unspecified. EDMS 15:29 Artur Mao is Hospitalizing Provider. kb 18:11 Patient admitted, IV remains in place. me1 Administered Medications: 17:49 Drug: Rocephin IV 1 grams IV at calculated rate once; Given slow IV push per pharmacy me1 instructions Route: IV; Rate: calculated rate; Site: left wrist; 18:13 Follow up: Response: No adverse reaction; IV Status: Completed infusion me1 Medication: 14:05 VIS not applicable for this client. me1 Outcome: 15:30 Decision to Hospitalize by Provider. kb 18:11 Admitted to Tele accompanied by tech, via wheelchair, room 417, with chart, Report me1 [facility], receipt confirmed with Asya. 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 18:11 Condition: stable 18:11 Instructed on the need for admit, 19:56 Patient left the ED. me1 Signatures: Dispatcher [employer] EDVT Zulema Cui FNP-C FNP-Ckb Williams, Irene RN RN iw Elizabeth Del Rio, RN RN me1 Corrections: (The following items were deleted from the chart) 14:09 14:07 Allergies: Aspirin; iw iw 14:22 14:05 Chief complaint: EMS states: pt c/o dizziness upon standing today, general iw weakness since heart valve replacement and pacemaker placement 1 week ago, the home nurse started her HR was 29 and to call EMS to transport to ER, pt had pacemaker and valve replacement done at [facility] 14:32 14:05 Chief complaint: EMS states: pt c/o dizziness upon standing today, general me1 weakness since heart valve replacement and pacemaker placement 1 week ago, the home nurse stated her HR was 29 and to call EMS to transport to ER, pt had pacemaker and valve replacement done at [facility] 19:55 15:00 BP 119 / 86; Pulse 78bpm; Resp 19bpm; Pulse Ox 100%; md1 md1 19:55 16:00 BP 136 / 52; Pulse 75bpm; Resp 17bpm; Pulse Ox 100%; md1 [facility] 19:55 17:00 BP 135 / 56; Pulse 77bpm; Resp 16bpm; Pulse Ox 100%; md1 md1 19:55 18:00 BP 135 / 56; Pulse 73bpm; Resp 16bpm; Pulse Ox 100%; md1 md1
--- NOTE | 2025-04-13 15:31 | EDPHYS ---
Physician Documentation [facility] Name: Tanisha Newsome Age: 74 yrs Sex: Female : 1950 Arrival Date: 04/13/2025 Time: 13:50 Bed 17 Private MD: ED Physician Vinnie Avalos HPI: 04/13 14:11 This 74 yrs old Female presents to ER via EMS with complaints of bradycardia. kb 14:11 Pt is a 74 year old female who presents for bradycardia. States her home health nurse kb checked her pulse and it was in the 20s and 30s so she called 911. Pt denies any chest pain, dizziness. States she had the pacemaker placed at [facility], but does not want to go back to that hospital. Historical: - Allergies: 14:07 Metformin HCl; iw - PMHx: 14:07 breast cancer; Depressive disorder; Diabetes mellitus; Hypercholesterolemia; iw Hypertensive disorder; - PSHx: 14:07 valve replacement; pacemaker; iw - Immunization history:: Adult Immunizations up to date. - Infectious Disease History:: Denies. - Social history:: Smoking status: Patient denies any tobacco usage or history of. ROS: 14:12 Constitutional: As per HPI kb Exam: 14:12 Constitutional: This is a well developed, well nourished patient who is awake, alert, kb and in no acute distress. Head/Face: Normocephalic, atraumatic. ENT: Moist Mucous membranes Cardiovascular: Regular rate Respiratory: Respirations even and unlabored. No increased work of breathing. Talking in full sentences Skin: Warm, dry with normal turgor. Normal color. MS/ Extremity: Pulses equal, no cyanosis. Neurovascular intact. Full, normal range of motion. Neuro: Awake and alert, GCS 15, oriented to person, place, time, and situation. 14:52 ECG was reviewed by the Attending Physician. kb Vital Signs: 14:09 BP 133 / 67; Pulse 81; Resp 20; Pulse Ox 100% on 2 lpm NC; Weight 97.07 kg; Height 5 iw ft. 7 in. ; Pain 0/10; 15:00 BP 119 / 86; Pulse 78; Resp 19; Pulse Ox 100% on 2 lpm NC; me1 16:00 BP 136 / 52; Pulse 75; Resp 17; Pulse Ox 100% on 1 lpm NC; me1 17:00 BP 135 / 56; Pulse 77; Resp 16; Pulse Ox 100% on 2 lpm NC; me1 18:00 BP 135 / 56; Pulse 73; Resp 16; Pulse Ox 100% on 2 lpm NC; me1 19:00 BP 129 / 59; Pulse 72; Resp 17; Pulse Ox 100% on 2 lpm NC; me1 19:45 BP 140 / 65; Pulse 74; Resp 16; Pulse Ox 99% on 2 lpm NC; me1 14:09 Body Mass Index 33.52 (97.07 kg, 170.18 cm) iw 14:09 Pain Scale: Adult iw MDM: 14:06 Medical Screening Exam initiated kb 14:13 Data reviewed: vital signs, nurses notes. Historians other than the Patient: Family kb Member: daughters. 15:14 Independent interpretation of the following test(s) in the Emergency Department X-Ray: kb My interpretation is no pneumothorax. 15:28 Differential diagnosis: arrythmia, abnormal electrolytes, bradycardia, CAD. kb Consideration of Admission/Observation Patient was admitted/placed on observation. Escalation of care including admission/observation considered. Management of patient was discussed with the following: Hospitalist: Hospitalist team, pt accepted for admission under Dr Mao. Counseling: I had a detailed discussion with the patient and/or guardian regarding the historical points, exam findings, and any diagnostic results supporting the discharge/admit diagnosis, lab results, radiology results, the need for further work-up and treatment in the hospital. 04/13 14:11 Order name: Basic Metabolic Panel; Complete Time: 15:14 kb 04/13 14:11 Order name: CBC with Diff; Complete Time: 18:59 kb 04/13 14:11 Order name: Magnesium; Complete Time: 15:14 kb 04/13 14:11 Order name: Troponin HS; Complete Time: 15:14 kb 04/13 17:41 Order name: Basic Metabolic Panel EDMS 04/13 17:41 Order name: Basic Metabolic Panel EDMS 04/13 17:41 Order name: CBC with Automated Diff EDMS 04/13 17:41 Order name: CBC with Automated Diff EDMS 04/13 17:41 Order name: Lipid Profile EDMS 04/13 17:41 Order name: Lipid Profile EDMS 04/13 17:41 Order name: Magnesium EDMS 04/13 17:41 Order name: Magnesium EDNM 04/13 17:41 Order name: Phosphorus EDMS 04/13 17:41 Order name: Phosphorus EDMS 04/13 17:41 Order name: Thyroid Stimulating Hormone EDNM 04/13 17:41 Order name: Thyroid Stimulating Hormone EDNM 04/13 17:41 Order name: Troponin High Sensitivity EDMS 04/13 17:41 Order name: Troponin High Sensitivity EDMS 04/13 17:41 Order name: Troponin High Sensitivity EDMS 04/13 17:41 Order name: Troponin High Sensitivity EDNM 04/13 18:34 Order name: CBC Smear Scan; Complete Time: 18:59 EDMS 04/13 14:11 Order name: XRAY Chest (1 view); Complete Time: 16:25 kb 04/13 14:11 Order name: Cardiac monitoring; Complete Time: 14:29 kb 04/13 14:11 Order name: EKG - Nurse/Tech; Complete Time: 14:29 kb 04/13 14:11 Order name: IV Saline Lock; Complete Time: 14:35 kb 04/13 14:11 Order name: Labs collected and sent; Complete Time: 14:35 kb 04/13 14:11 Order name: O2 Per Protocol; Complete Time: 14:20 kb 04/13 14:11 Order name: O2 Sat Monitoring; Complete Time: 14:20 kb EC:52 Rate is 77 beats/min. Rhythm is regular. QRS [place] is Normal. [place] interval is normal at kb 182 msec. QRS interval is normal at 106 msec. QT interval is normal at 463 msec. Administered Medications: 17:49 Drug: Rocephin IV 1 grams IV at calculated rate once; Given slow IV push per pharmacy me1 instructions Route: IV; Rate: calculated rate; Site: left wrist; 18:13 Follow up: Response: No adverse reaction; IV Status: Completed infusion me1 Disposition: 16:50 I was immediately available on-site in the Emergency Department for consultation in the ms3 care of the patient. Disposition Summary: 04/13/25 15:30 Hospitalization Ordered Notes: Hospitalization Status: Observation kb Provider: Artur Mao Location: Telemetry/MedSurg (observation) kb Condition: Stable kb Problem: new kb Symptoms: are unchanged kb Bed/Room Type: Standard Room Assignment: [facility](04/13/25 17:46) bd Diagnosis - Bradycardia, unspecified(04/13/25 15:30) kb Forms: - Medication Reconciliation Form kb - SBAR form kb - Leadership Thank You Letter kb Signatures: Dispatcher [employer] EDZulema Gilman, EVENING SITTER-C EVENING SITTER-CkSandee Interiano Irene, RN RN iw Vinnie Avalos, DO ms3 Elizabeth Del Rio, CRYSTAL RN me1 Corrections: (The following items were deleted from the chart) 14:09 14:07 Allergies: Aspirin; iw iw 14:12 14:12 BASIC METABOLIC PANEL+C.LAB.BRZ ordered. EDMS EDMS 14:12 14:12 CBC+H.LAB.BRZ ordered. EDMS EDMS 14:12 14:12 MAGNESIUM+C.LAB.BRZ ordered. EDMS EDMS 14:12 14:12 Troponin High Sensitivity+C.LAB.BRZ ordered. EDMS EDMS 15:30 15:30 Bradycardia, unspecified - resolved kb kb 17:46 15:30 kb bd
--- NOTE | 2025-04-13 16:21 | RAD REPORT ---
EXAMINATION: ONE VIEW CHEST XR CLINICAL INDICATION: Female, 74 years old.,PALPITATIONS TECHNIQUE: Frontal chest projection is submitted. Examination is limited by patient positioning and t echnique. COMPARISON: No prior exam. FINDINGS: The lungs are suboptimally inflated which limits evaluation. Patchy left mid lung opacities. No pneu mothorax or sizable effusion. The heart is normal in size. Mediastinal contours are unremarkable with sequelae of right pacer/AICD and aortic valve prosthesis in place. IMPRESSION: Patchy left mid lung opacities, concerning for pneumonia.
[2025-04-13] MEDS ORDERED: D10W 125 ML IV PRN (17:30)
[2025-04-13] MEDS ORDERED: ONDANSETRON 4 MG/2 ML VIAL IV PRN (17:30)
[2025-04-13] MEDS ORDERED: ACETAMINOPHEN 325 MG TABLET PO PRN (17:30)
[2025-04-13] MEDS ORDERED: ALBUTEROL 2.5 MG/3 ML NEB SOL NEB PRN (17:30)
[2025-04-13] MEDS ORDERED: GLUCAGON 1 MG/VIAL IM PRN (17:30)
[2025-04-13] MEDS ORDERED: CEFTRIAXONE 1000 MG/VIAL ONE (17:32)
[2025-04-13] MEDS ORDERED: NA CHLORIDE 0.9% 100 ML ONE (17:32)
--- NOTE | 2025-04-13 17:49 | P.HP ---
Certification for Inpatient Patient admitted to: Observation With expected LOS: <2 Midnights Practitioner: I am a practitioner with admitting privileges, knowledge of patient current condition, hospital course, and medical plan of care. Services: Services provided to patient in accordance with Admission requirements found in Title 42 Section 412.3 of the Code of Federal Regulations Patient History Date of Service: 04/13/25 Reason for admission: Low heart rate History of Present Illness: 74-year-old woman with a history of hypertension, insulin-dependent diabetes mellitus was brought to the emergency department after home health nurse noted patient's heart rate was down to 20 to 30s. Patient had aortic valve replacement and pacemaker placement a couple of weeks ago at [facility], went to acute rehab for 11 days after discharge. According to the patient home health nurse was taking her BP when she noted patient heart rate was in the 20s to 30s, symptoms associated with dizziness, patient denied any palpitations. Patient has no recollection of indication for a pacemaker placement, and does not know the pacemaker brand. Patient had no complaints during my examination in the ED. Her heart rate has been in the 70s to 80s. Workup in the ED: Initial troponin negative, EKG demonstrated sinus rhythm. Creatinine mildly elevated at 1.29 and hemoglobin of 8.7. Case discussed with cardiology who recommended telemetry monitoring and pacemaker interrogation before discharge. Patient is hospitalized for further management. - Past Medical/Surgical History -: Diabetes mellitus type 2 -: COPD -: Chronic respiratory failure with hypoxia -: Pacemaker placement -: Aortic valve replacement - Family History Family History: Reviewed- Non-Contributory - Social History Smoking Status: Former smoker Alcohol use: No CD- Drugs: No Place of Residence: Home Review of Systems Other: She denied any chest pain or palpitation. Patient denied any shortness of breath. She denied any wheezing. She denied any abdominal pain. She denied any nausea or vomiting or diarrhea. She denied any fever or cough or congestion. Except as documented, all other systems reviewed and negative. Physical Examination - Physical Exam General: Alert, In no apparent distress, Oriented x3, Obese HEENT: Mucous membr. moist/pink, Sclerae nonicteric Neck: Supple, JVD not distended Respiratory: Clear to auscultation bilaterally, Normal air movement Cardiovascular: No edema, Regular rate/rhythm, Normal S1 S2 Capillary refill: <2 Seconds Gastrointestinal: Normal bowel sounds, Soft and benign, Non-distended, No tenderness Musculoskeletal: No swelling, No tenderness Integumentary: No rashes, No erythema, No cyanosis Neurological: Normal speech, Normal strength at 5/5 x4 extr, Cranial nerves 3-12 intact Lymphatics: No axilla or inguinal lymphadenopathy - Studies Laboratory Data (last 24 hrs) 04/13/25 04/13/25 14:35 14:35 WBC 5.10 Hgb 8.7 L Hct 27.4 L Plt Count 69 L Sodium 138 Potassium 4.3 BUN 13 Creatinine 1.29 H Glucose 131 H Magnesium 2.2 Assessment and Plan - Problems (Diagnosis) (1) Bradycardia Current Visit: Yes Status: Acute (2) Presence of cardiac pacemaker Current Visit: Yes Status: Acute (3) History of aortic valve replacement Current Visit: Yes Status: Acute (4) Type 2 diabetes mellitus Current Visit: Yes Status: Acute (5) Chronic respiratory failure with hypoxia Current Visit: Yes Status: Acute (6) COPD (chronic obstructive pulmonary disease) Current Visit: Yes Status: Acute - Plan Bradycardia Presence of pacemaker Case discussed with cardiology Dr. Wise. Place patient under observation Family advised to look for the pacemaker brand so we can interrogate her pacemaker to assess what happened during the event. Continue to trend troponin Avoid beta-ara Cardiology consult. Monitor and optimize electrolytes. History of recent aortic valve replacement Aspirin daily Validate and reconcile home medications. Diabetes mellitus type 2 Insulin sliding scale for glucose management Validated reconcile home medications. Anemia Likely chronic. Monitor H&H daily and transfuse as needed for hemoglobin less than 8. DVT prophylaxis: Lovenox CODE STATUS: Full code - Advance Directives Does patient have a Living Will: No Does patient have a Durable POA for Healthcare: No
[2025-04-13] MEDS ORDERED: D50W 25 GM/50 ML SYRINGE IV PRN (17:54)
[2025-04-13 18:33] LABS: Blood Morphology Comment NOT SEEN (NOT SEEN); White Blood Cell Scan OK (OK)
[2025-04-13] MEDS: IPRATROPIUM BROM 0.5MG/2.5ML NEB SCH (20:23)
[2025-04-13] MEDS: INSULIN REGULAR (HUMAN) 100 UNIT/ML SQ SCH (21:00)
[2025-04-14 05:31] LABS: Absolute Lymphocytes (CBC) 0.6 K/uL (0.7-4.9); Hematocrit 22.9 % (36.0-45.0); Hemoglobin 7.6 g/dL (12.0-15.0); MCH 31.1 pg (27.0-35.0); MCHC 33.0 g/dL (32.0-36.0); MCV 94.2 fL (80-100); MPV 9.2 fL (7.6-11.3); Nucleated RBC Absolute Count 0.0 (0-0); Nucleated Red Blood Cells % 0.1 % (0-0); RBC Red Blood Cell Count 2.43 M/uL (3.86-4.86); White Blood Count 2.80 thou/uL (4.3-10.9)
[2025-04-14 06:06] LABS: Anion Gap 5.3 mEq/L (5.0-15.0); BUN Blood Urea Nitrogen 15.0 mg/dL (7-18); Glucose Level 140.0 mg/dL (74-106); HDL Cholesterol 67.0 mg/dL (40-60); LDL Cholesterol, Calculated 35.0 mg/dL (<130); LDL Cholesterol,Calc NonReport 35.0; Magnesium 2.2 mg/dL (1.6-2.4); Potassium 4.3 mEq/L (3.5-5.1)
[2025-04-14 06:14] LABS: Thyroid Stimulating Hormone 6.53 uIU/mL (0.358-3.740)
[2025-04-14] MEDS ORDERED: PNEUMOCOCCAL VACCINE 0.5 ML IMVAC ONE (08:00)
[2025-04-14] MEDS: Fluticasone/Umeclidin/Vilanter [Trelegy Ellipta 200-62.5-25] Blst.W.Dev PO SCH (09:00)
[2025-04-14] MEDS ORDERED: PANTOPRAZOLE 40MG TABLET PO SCH (09:00)
[2025-04-14] MEDS ORDERED: ENOXAPARIN 40 MG/0.4 ML SQ SCH (09:00)
[2025-04-14] MEDS: LACTULOSE 20 GM/30 ML UCUP PO SCH (09:00)
[2025-04-14] MEDS: CLOPIDOGREL 75 MG TABLET PO SCH (09:13)
[2025-04-14] MEDS: AMLODIPINE 10 MG TAB PO SCH (09:13)
[2025-04-14] MEDS: PANTOPRAZOLE 40MG TABLET PO SCH (09:13)
[2025-04-14] MEDS: OLANZapine 2.5 MG TAB PO SCH (09:13)
[2025-04-14] MEDS: ASPIRIN EC 81 MG TAB PO SCH (09:14)
--- NOTE | 2025-04-14 12:15 | P.CNS ---
Date of Consult: 04/14/25 Chief Complaint: Low heart rate History of Present Illness: Patient with PMH of JAYLEEN, PM placement, presented from [facility] as she was found to have slow HR, denies any cardiac symptoms. Allergies metformin Allergy (Verified 04/13/25 20:29) Hives Home medications list reviewed: Yes Home Medications: Amlodipine Besylate 10 mg .ROUTE DAILY 04/13/25 Atorvastatin Calcium [Lipitor*] 50 mg PO BEDTIME 04/13/25 Budesonide [Eohilia] 0.5 syr PO DAILY 04/13/25 Clopidogrel Bisulfate [Plavix*] 75 mg PO DAILY 04/13/25 Fluticasone/Umeclidin/Vilanter [Trelegy Ellipta 200-62.5-25] 200 mcg PO DAILY 04/13/25 Lactulose 10 gm PO DAILY 04/13/25 Methocarbamol 500 mg PO BEDTIME 04/13/25 Mirtazapine [Remeron*] 15 mg PO DAILY 04/13/25 OLANZapine [Zyprexa*] 2.5 mg PO DAILY 04/13/25 Pantoprazole [Protonix Tab*] 40 mg PO DAILY 04/13/25 Tramadol HCl [Ultram] 50 mg PO PRN 04/13/25 Trazodone [Desyrel*] 50 mg PO DAILY 04/13/25 - Past Medical/Surgical History Diabetic: Yes -: Diabetes mellitus type 2 -: COPD -: Chronic respiratory failure with hypoxia -: Pacemaker placement -: Aortic valve replacement - Social History Alcohol use: No CD- Drugs: No Caffeine use: Yes Place of Residence: Home Review of Systems 10-point ROS is otherwise unremarkable Physical Examination Temp Pulse Resp BP Pulse Ox 97.9 F 77 15 109/53 L 97 04/14/25 08:00 04/14/25 09:13 04/14/25 08:00 04/14/25 09:13 04/14/25 08:00 General: Alert, In no apparent distress HEENT: Atraumatic, PERRLA, Mucous membr. moist/pink, EOMI, Sclerae nonicteric Neck: Supple, 2+ carotid pulse no bruit, No LAD, Without JVD or thyroid abnormality Respiratory: Clear to auscultation bilaterally, Normal air movement Cardiovascular: Regular rate/rhythm, Normal S1 S2 Gastrointestinal: Normal bowel sounds, No tenderness Musculoskeletal: No tenderness Integumentary: No rashes Neurological: Normal gait, Normal speech, Normal tone, Normal affect Lymphatics: No axilla or inguinal lymphadenopathy Laboratory Data (last 24 hrs) 04/13/25 04/13/25 14:35 14:35 WBC 5.10 Hgb 8.7 L Hct 27.4 L Plt Count 69 L Sodium 138 Potassium 4.3 BUN 13 Creatinine 1.29 H Glucose 131 H Magnesium 2.2 - Problems (1) Bradycardia Current Visit: Yes Status: Acute Plan: not able to see that here in the hospital as patient is paced, it is normal for HR to drop sometimes even when the patient for the pacemaker as there is a refractory period for PM to monitor rhythm before start pacing. patient will need pacemaker check which can be done as outpatient. (2) History of aortic valve replacement Current Visit: Yes Status: Acute Plan: outpatient follow up with cardiology for an echo (3) Presence of cardiac pacemaker Current Visit: Yes Status: Acute Plan: patient is currently paced, outpatient follow up for device check.
[2025-04-14 13:23] VITALS: O2SAT 99
--- NOTE | 2025-04-14 13:46 | P.DS ---
Admission Date: 04/13/25 Discharge Date: 04/14/25 Disposition: ROUTINE DISCHARGE Discharge Condition: FAIR Reason for Admission: Low heart rate - Problems (1) Bradycardia Status: Acute (2) Presence of cardiac pacemaker Status: Acute (3) History of aortic valve replacement Status: Acute (4) Type 2 diabetes mellitus Status: Acute (5) Chronic respiratory failure with hypoxia Status: Acute (6) COPD (chronic obstructive pulmonary disease) Status: Acute Brief History of Present Illness: 74-year-old woman with a history of hypertension, insulin-dependent diabetes mellitus was brought to the emergency department after home health nurse noted patient's heart rate was down to 20 to 30s. Patient had aortic valve replacement and pacemaker placement a couple of weeks ago at [facility], went to acute rehab for 11 days after discharge. According to the patient home health nurse was taking her BP when she noted patient heart rate was in the 20s to 30s, symptoms associated with dizziness, patient denied any palpitations. Patient has no recollection of indication for a pacemaker placement, and does not know the pacemaker brand. Patient had no complaints during my examination in the ED. Her heart rate has been in the 70s to 80s. Workup in the ED: Initial troponin negative, EKG demonstrated sinus rhythm. Creatinine mildly elevated at 1.29 and hemoglobin of 8.7. Case discussed with cardiology who recommended telemetry monitoring and pacemaker interrogation before discharge. Patient was hospitalized for further management. Hospital Course: Patient placed on observation on the medical floor. Hide troponin trended negative. Patient had no complaint during the hospital stay. There was no bradycardic episode. She was seen and evaluated by cardiology who recommended outpatient pacemaker interrogation and event monitor. Patient discharged to follow-up with her partner marketing intern. Vital Signs/Physical Exam: Temp Pulse Resp BP Pulse Ox 97.9 F 74 15 130/72 99 04/14/25 12:00 04/14/25 12:00 04/14/25 12:00 04/14/25 12:00 04/14/25 12:00 General: Alert, In no apparent distress, Oriented x3 HEENT: Mucous membr. moist/pink, Sclerae nonicteric Neck: Supple, JVD not distended Respiratory: Clear to auscultation bilaterally, Normal air movement Cardiovascular: No edema, Regular rate/rhythm, Normal S1 S2 Gastrointestinal: Soft and benign, Non-distended, No tenderness Musculoskeletal: No swelling Integumentary: No rashes, No cyanosis Neurological: Normal strength at 5/5 x4 extr, Cranial nerves 3-12 intact Laboratory Data at Discharge: WBC 2.80 thou/uL (4.3-10.9) L 04/14/25 04:19 Hgb 7.6 g/dL (12.0-15.0) L D 04/14/25 04:19 Hct 22.9 % (36.0-45.0) L 04/14/25 04:19 Plt Count 59 thou/uL (152-406) L 04/14/25 04:19 Sodium 139 mEq/L (136-145) 04/14/25 04:19 Potassium 4.3 mEq/L (3.5-5.1) 04/14/25 04:19 BUN 15 mg/dL (7-18) 04/14/25 04:19 Creatinine 1.21 mg/dL (0.55-1.02) H 04/14/25 04:19 Glucose 140 mg/dL (74-106) H 04/14/25 04:19 Phosphorus 3.2 mg/dL (2.5-4.9) 04/14/25 04:19 Magnesium 2.2 mg/dL (1.6-2.4) 04/14/25 04:19 Triglycerides 107 mg/dL (<150) 04/14/25 04:19 Cholesterol 123 mg/dL (<200) 04/14/25 04:19 HDL Cholesterol 67 mg/dL (40-60) H 04/14/25 04:19 Cholesterol/HDL Ratio 1.84 04/14/25 04:19 Home Medications: Amlodipine Besylate 10 mg .ROUTE DAILY 04/13/25 Atorvastatin Calcium [Lipitor*] 50 mg PO BEDTIME 04/13/25 Budesonide [Eohilia] 0.5 syr PO DAILY 04/13/25 Clopidogrel Bisulfate [Plavix*] 75 mg PO DAILY 04/13/25 Fluticasone/Umeclidin/Vilanter [Trelegy Ellipta 200-62.5-25] 200 mcg PO DAILY 04/13/25 Lactulose 10 gm PO DAILY 04/13/25 Methocarbamol 500 mg PO BEDTIME 04/13/25 Mirtazapine [Remeron*] 15 mg PO DAILY 04/13/25 OLANZapine [Zyprexa*] 2.5 mg PO DAILY 04/13/25 Pantoprazole [Protonix Tab*] 40 mg PO DAILY 04/13/25 Tramadol HCl [Ultram] 50 mg PO PRN 04/13/25 Trazodone [Desyrel*] 50 mg PO DAILY 04/13/25 Diet: ADA Activity: Fall precautions Followup: Navjot Wise MD [ACTIVE - CAN ADMIT] - 1 Week Time spent managing pt's care (in minutes): 28
[2025-04-14 16:41] VITALS: BP 125/50; TEMP 98.1
[2025-04-14] MEDS ORDERED: TRAZODONE 50 MG TABLET PO SCH (21:00)
[2025-04-14] MEDS ORDERED: MIRTAZAPINE 15 MG TAB PO SCH (21:00)
[2025-04-14] MEDS ORDERED: ATORVASTATIN 20 MG TAB PO SCH (21:00)
== END 2025-04-14 19:15 | disposition home or self-care (01) ==
LOC: ER 13:50 → ERHOLD 17:28 → 4TH 18:17
PROVIDERS: ADMIT Internal Medicine; ATTEND Internal Medicine
DX: R00.1 Bradycardia, unspecified (principal); J96.11 Chronic respiratory failure with hypoxia; E11.9 Type 2 diabetes mellitus without complications; J44.9 Chronic obstructive pulmonary disease, unspecified; D64.9 Anemia, unspecified; Z95.0 Presence of cardiac pacemaker; Z95.2 Presence of prosthetic heart valve; Z88.8 Allergy status to other drugs, medicaments and biological substances
CPT/HCPCS: 96365; 93005; 85025 ×2; 80048 ×2; 36415; 83735 ×2; 84100; 80061; 82947 ×4; 84443; 84484 ×4; 84439; 71045; 94640; 94760 ×2; 99285; J7644 ×2; J1815; J0696; G0378 ×3

== ENCOUNTER 2025-04-20 15:49 | Inpatient (IN) | payer OTHER ==
--- OUTSIDE RECORDS SUMMARY | 2025-04-20 15:55 | XMS REPORT | Clinical Summary ---
Author Name Unknown Organization [facility] Address [address] [place] [address] Care Team Providers Care Farm Service Adviser Name Role Phone Unavailable Primary Care Provider [...] AM CDT Anesthesia Event [facility] Main Bldg, 3rd [place] [address] Teri Estrada MD Shaik, Ghouse B, FIREFIGHTER TYPE ONE 02/08/2025 8:39 AM CDT - 02/19/2025 11:31 AM CDT Hospital Encounter MAIN [address] [place] [address] Destiny More MD Taylor, MD Jennifer Truong [...] Home-Health or Physical Therapy 02/08/2025 Travel after 04/20/2024 Social History Tobacco Use Types Packs/Day Years [...] file Travel History Travel Start Travel End [place] 02/06/2025 02/08/2025 Obstetrics History Last Filed Vital [...] CALCIUM TOTAL Routine 02/09/2025 5:25 AM CDT [facility] Routine 02/08/2025 10:59 PM CDT [...] VW Routine 02/08/2025 9:47 AM CDT after 04/20/2024 Results * (ABNORMAL) POC Glucose Screen - Fingerstick (02/19/2025 8:53 AM CDT) Only the most recent of40 resultswithin the time period is included. Glucose Screen 144(H) 70 - 99 mg/dL 02/19/2025 8:56 AM CDT [facility] POC Sample Type Capillary 02/19/2025 8:56 AM CDT [facility] Blood 02/19/2025 8:53 AM CDT 02/19/2025 8:56 AM CDT Narrative [facility] - 02/19/2025 8:56 AM CDT Capillary [...] MD POCT ORDERABLES - DEVICE Final Result [facility] [address] [place] [address] * (ABNORMAL) .CBC (02/19/2025 1:44 AM CDT) Only the most recent of12 resultswithin the time period is included. White Blood Cell 5.8 4.1 - 10.5 K/uL 02/19/2025 2:02 AM CDT [facility] Red Blood Cell 2.64(L) 3.99 - 5.46 M/uL 02/19/2025 2:02 AM CDT [facility] Hemoglobin 7.9(L) 12.2 - 15.3 g/dL 02/19/2025 2:02 AM CDT [facility] Hematocrit 25.7(L) 36.4 - 46.8 % 02/19/2025 2:02 AM CDT [facility] Mean Cell Volume 97 82 - 99 fL 02/19/2025 2:02 AM CDT [facility] Mean Cell Hemoglobin 29.9 26.6 - 33.2 pg 02/19/2025 2:02 AM CDT [facility] Mean Cell Hemoglobin Concentration 30.7(L) 31.1 - 35.2 g/dL 02/19/2025 2:02 AM CDT [facility] RDW-SD 62.0(H) 37.5 - 49.7 fL 02/19/2025 2:02 AM [facility] Red Cell Diameter Width 17.2(H) 11.6 - 15.5 % 02/19/2025 2:02 AM [facility] Platelet 104(L) 160 - 397 K/uL 02/19/2025 2:02 AM [facility] Mean Platelet Volume 10.7 9.1 - 12.6 fL 02/19/2025 2:02 AM [facility] INRBC 0.0 0.0 - 0.1 /100 WBC 02/19/2025 2:02 AM [facility] Comment: The INRBC value reflects the enumeration of nucleated red blood cells contained in a 200uL sample of whole blood analyzed by the instrument. This value may differ from the NRBC value reported in a manual diff, which is based on a 100 cell differential. Neutrophil % 64.1 43.2 - 72.7 % 02/19/2025 2:02 AM [facility] Lymphocyte % 15.9(L) 16.8 - 46.2 % 02/19/2025 2:02 AM [facility] Monocyte % 16.4(H) 5.1 - 12.5 % 02/19/2025 2:02 AM [facility] Eosinophil % 2.4 0.4 - 6.3 % 02/19/2025 2:02 AM [facility] Basophil % 0.7 0.2 - 1.4 % 02/19/2025 2:02 AM [facility] IGRE % 0.5 0.1 - 1.5 % 02/19/2025 2:02 AM [facility] Comment:The IGRE% includes M etamyelocytes, Myelocytes and Promyelocytes. Neutrophil Abs 3.71 1.95 - 7.25 K/uL 02/19/2025 2:02 AM [facility] Lymphocyte Abs 0.92(L) 1.01 - 3.24 K/uL 02/19/2025 2:02 AM [facility] Monocyte Abs 0.95(H) 0.24 - 0.85 K/uL 02/19/2025 2:02 AM CDT [facility] Eosinophil Abs 0.14 0.02 - 0.50 K/uL 02/19/2025 2:02 AM CDT [facility] Basophil Abs 0.04 0.02 - 0.09 K/uL 02/19/2025 2:02 AM CDT [facility] IG Abs 0.03 0.01 - 0.12 K/uL 02/19/2025 2:02 AM CDT [facility] Blood Peripheral blood specimen / Unknown Venipuncture / Unknown 02/19/2025 1:44 AM CDT 02/19/2025 1:54 AM CDT us T Bhatti FIREFIGHTER TYPE ONE LAB BLOOD ORDERABLES Final Resul t [place] [address] [place] [address] * (ABNORMAL) Basic Metabolic Panel- Total Calcium (02/19/2025 1:44 AM CDT) Only the most recent of11 resultswithin the time period is included. eGFR 45(L) >=60 mL/min/1. 73 sq. m 02/19/2025 2:27 AM CDT [facility] Comment: The eGFRcr is calculated with [...] - 10.2 mg/dL 02/19/2025 2:27 AM CDT [facility] Sodium Level 141 136 - 145 mmol/L 02/19/2025 2:27 AM CDT [facility] Potassium Level 4.6(H) 3.4 - 4.5 mmol/L 02/19/2025 2:27 AM CDT [facility] Chloride 102 98 - 107 mmol/L 02/19/2025 2:27 AM CDT [facility] CO2 30(H) 22 - 29 mmol/L 02/19/2025 2:27 AM CDT [facility] Anion Gap 9 4 - 14 mmol/L 02/19/2025 2:27 AM CDT [facility] Creatinine 1.26(H) 0.51 - 0.95 mg/dL 02/19/2025 2:27 AM CDT [facility] BUN 23 6 - 23 mg/dL 02/19/2025 2:27 AM CDT [facility] Glucose Level 129(H) 70 - 99 mg/dL 02/19/2025 2:27 AM CDT [facility] Comment: Effective 02/08/16, the glucose reference intervals have been updated based on [place] Diabetes [employer] guidelines (Standards of Medical Care [...] 02/19/2025 1:54 AM CDT us T Bhatti FIREFIGHTER TYPE ONE LAB BLOOD ORDERABLES Final Resul t [facility] [address] [place] [address] * Phosphorus Level (02/19/2025 1:44 AM CDT) Only the most recent of12 resultswithin the time period is included. Phosphorus Level 3.3 2.5 - 4.5 mg/dL 02/19/2025 2:27 AM CDT [facility] Blood Peripheral blood specimen / Unknown Venipuncture / Unknown 02/19/2025 1:44 AM CDT 02/19/2025 1:54 AM CDT us T Bhatti FIREFIGHTER TYPE ONE LAB BLOOD ORDERABLES Final Resul t Performing Organization Address City/[facility] Co de Phone Number [address] [address] * Magnesium Level (02/19/2025 1:44 AM CDT) Only the most recent of12 resultswithin the time period is included. Magnesium Level 2.2 1.6 - 2.6 mg/dL 02/19/2025 2:27 AM CDT [facility] Blood Peripheral blood specimen / Unknown Venipuncture / Unknown 02/19/2025 1:44 AM CDT 02/19/2025 1:54 AM CDT us T Bhatti FIREFIGHTER TYPE ONE LAB BLOOD ORDERABLES Final Resul t Performing Organization Address City/[facility] de Phone Number [address] [address] * MRI Brain with and without Contrast [...] osteophyte at left C1-C2 lateral mass/facet and C2/B7dhiwhoahskrn changes are partially seen. Extracranial: Bilateral pseudophakia. [...] D 25OH (02/15/2025 5:30 AM CDT) Pathologist [facility] Vitamin D 25 OH 19(L) 30 - 100 ng/mL 02/15/2025 10:27 PM CDT [facility] Blood Peripheral blood specimen / Unknown Venipuncture / Unknown 02/15/2025 5:30 AM CDT 02/15/2025 5:57 AM CDT Narrative [facility] - 02/15/2025 10:27 PM CDT Reference Range: Deficiency: <=20 ng/mL Insufficiency: 21-29 ng/mL Sufficiency: 30-100 ng/mL Potential toxicity: >100 ng/mL Franky Edward MD LAB BLOOD ORDERABLES Final Resul t [facility] [address] [place] [address] * Albumin Level (02/14/2025 4:08 AM CDT) Albumin Level 3.5 3.5 - 5.2 gm/dL 02/14/2025 11:02 AM CDT [facility] Blood Peripheral blood specimen / Unknown Venipuncture / Unknown 02/14/2025 4:08 AM CDT 02/14/2025 4:31 AM CDT us Franky Edward MD LAB BLOOD ORDERABLES Final Resul t Performing Organization Address [facility] Co de Phone Number [address] [address] * EKG, 12-Lead (Portable) (02/13/2025 4:49 PM CDT) Only the most recent of5 resultswithin the time period is included. us Franky Edward MD ECG ORDERABLES Final Result Performing Organization Address [facility] Co de Phone Number [facility] * (ABNORMAL) NT-Pro BNP (In-House) (02/13/2025 5:50 AM CDT) Only the most recent of3 resultswithin the time period is included. NT-ProBNP 3,712(H) <=450 pg/mL 02/13/2025 11:35 AM CDT [facility] Blood Peripheral blood specimen / Unknown Venipuncture / Unknown 02/13/2025 5:50 AM CDT 02/13/2025 6:17 AM CDT Result [facility] us Franky Edward MD LAB BLOOD ORDERABLES Final Resul t Performing Organization Address [facility] de Phone Number [address] [address] * CT Head without Contrast (02/09/2025 7:02 [...] potentially actionable. us Franky Edward MD [facility] US ORDERABLES Final Result * Vancomycin Trough Vancomycin trough on 02/09 @ 1230. Nurse please coordinate with lab to draw troughapproximately 11 - 11.5 hours after previous vancomycin dose. Hold vancomycin if trough is greater than 20 and notify provider. Thanks! (02/09/2025 12:16 PM CDT) Vancomycin Trough 16.5 5.0 - 20.0 mcg/mL 02/09/2025 1:04 PM CDT [facility] Vancomycin Trough Dose Time 02/09/2025 1:04 PM CDT [facility] Vancomycin Trough Dose Date 02/09/2025 1:04 PM CDT [facility] Blood Peripheral blood specimen / Unknown Venipuncture / Unknown 02/09/2025 12:16 PM CDT 02/09/2025 12:26 PM CDT Narrative [facility] - 02/09/2025 1:04 PM CDT Toxic Trough Level: >20 mcg/ml Uncomplicated MRSA bacteremia: 10-15mcg/mL MRSA bacteremia or endocarditis and other severe invasive MRSA infections (PJI, HAP, DAIRY SCIENCE TEACHER infections): 15-20mcg/mL us Franky Edward MD LAB BLOOD ORDERABLES Final Resul t [facility] [address] [place] [address] * Echocardiogram Strain/Speckle Tracking (02/09/2025 11:31 AM [...] potentially actionable. us Redd Rodriguez MD [facility] US ORDERABLES Final Result * (ABNORMAL) Hepatic Function Panel (02/09/2025 5:25 AM CDT) Bilirubin Total 1.1 0.0 - 1.2 mg/dL 02/09/2025 5:13 PM CDT [facility] Comment:Indocyanine Green (I CG) may cause falsely elevated bilirubin results. Total and direct bilirubin must not be measured from samples containing indocyanine green. False elevation of total bilirubin can be seen in patients with IgG concentrations above 28 g/L. Bilirubin Direct 0.4(H) 0.0 - 0.2 mg/dL 02/09/2025 5:13 PM CDT [facility] Comment:Indocyanine Green (I CG) may cause falsely elevated bilirubin results. Total and direct bilirubin must not be measured from samples containing indocyanine green. Bilirubin Indirect 0.7 0.0 - 1.0 mg/dL 02/09/2025 5:13 PM CDT [facility] Tot Protein 6.1(L) 6.4 - 8.3 gm/dL 02/09/2025 5:13 PM CDT [facility] Alkaline Phosphatase 58 35 - 104 U/L 02/09/2025 5:13 PM CDT [facility] Albumin Level 3.3(L) 3.5 - 5.2 gm/dL 02/09/2025 5:13 PM CDT [facility] AST 17 <=32 U/L 02/09/2025 5:13 PM CDT [facility] ALT 9 <=33 U/L 02/09/2025 5:13 PM CDT [facility] Blood Peripheral blood specimen / Unknown Venipuncture / Unknown 02/09/2025 5:25 AM CDT 02/09/2025 5:46 AM CDT Franky Edward MD LAB BLOOD ORDERABLES Final Resul t Performing Organization Address City/[facility] de Phone Number [address] [address] * Hemoglobin A1c (02/09/2025 5:25 AM CDT) Hemoglobin A1c 5.3 4.3 - 5.6 % 02/09/2025 10:10 PM CDT [facility] Blood Peripheral blood specimen / Unknown Venipuncture / Unknown 02/09/2025 5:25 AM CDT 02/09/2025 5:46 AM CDT Narrative [facility] - 02/09/2025 10:10 PM CDT HbA1c values >=6.5% are diagnostic of diabetes mellitus. Diagnosis should be confirmed by repeat testing. Therapeutic Action suggested: >8.0% HbA1c; Goal of therapy: <7.0% HbA1c us Franky Edward MD LAB BLOOD ORDERABLES Final Resul t Performing Organization Address City/[facility] Co de Phone Number [address] [address] * Lipid Panel (02/09/2025 5:25 AM CDT) Cholesterol Total 119 <200 mg/dL 025 10:17 PM CDT [facility] Comment: ATP III Classification of Total Cholesterol - Primary Target of Therapy (in mg/dL): <200 Desirable 200-239 Borderline high >=240 High Triglyceride 95 <150 mg/dL 02/09/2025 10:17 PM CDT [facility] Comment: ATP III Classification of Serum Triglycerides Primary Target of Therapy (in mg/dL): <150 Normal 150-199 Borderline high 200-499 High >=500 Very high Non-fasting triglycerides >200 mg/dL may be followed up with a fasting Lipid Panel. Calculated LDL-C may be falsely decreased when non-fasting triglycerides >200 mg/dL. HDL Cholesterol 54 >=40 mg/dL 10:17 PM CDT [facility] LDL Cholesterol 46 <=100 mg/dL 02/09/2025 10:17 PM CDT [facility] Comment: ATP III Classification of LDL Cholesterol Primary Target of Therapy (in mg/dL): <100 Optimal 100-129 Near optimal/above optimal 130-159 Borderline high 160-189 High >=190 Very high LDL-C is calculated using the Friedewald equation. Is patient fasting? 02/09 10:17 PM CDT [facility] Blood Peripheral blood specimen / Unknown Venipuncture / Unknown 02/09/2025 5:25 AM CDT 02/09/2025 5:46 AM CDT us Franky Edward MD LAB BLOOD ORDERABLES Final Resul t Performing Organization Address City/State/[facility] Co de Phone Number [facility] [address] [place] [address] * Transfuse RBC:Transfusion Date: 02/08/2025 (02/09/2025 12:54 AM CDT) us Destiny More MD BLOOD TRANSFUSION ORDERABLES Fin al Result * Menendez Misc Test (02/08/2025 10:59 PM CDT) Robertson Mis Test Result See Footnote 02/10/2025 3:38 PM CDT [facility] Comment: Test Result Flag Unit RefValue Chloride, Random, U 129 mmol/L REFERENCE VALUE Random urine chloride may be interpreted in conjunction with serum chloride, using both values to calculate fractional excretion of chloride. Test Performed by: [facility] - [address] [address] Specialty Molder: Cresencio Mane Ph.D.; CLIA# [id number] Non-Blood (Other) Non-blood Collection / Unknown 02/08/2025 10:59 PM CDT 02/09/2025 11:09 AM CDT us Franky Edward MD LAB BLOOD ORDERABLES Final Resul t [facility] See report for performing lab information. * Sodium Urine (02/08/2025 10:59 PM CDT) Urine Sodium 119 mmol/L 02/09/2025 12:00 AM CDT [facility] Comment:Normal range not william ilable for collections less than 24 hours in duration. Urine Voided urine specimen / Unknown Non-blood Collection / Unknown 02/08/2025 10:59 PM CDT 02/08/2025 11:33 PM CDT us Redd Rodriguez MD URINE ORDERABLES Final Result Performing Organization Address [facility] [place] [address] * Potassium Urine (02/08/2025 10:59 PM CDT) Urine Potassium 37 mmol/L 12:00 AM CDT [facility] Comment:Normal range not william ilable for collections less than 24 hours in duration. Urine Voided urine specimen / Unknown Non-blood Collection / Unknown 02/08/2025 10:59 PM CDT 02/08/2025 11:33 PM CDT us Redd Rodriguez MD URINE ORDERABLES Final Result Performing Organization Address City/[facility]/ZIP Co de Phone Number [address] [address] * Creatinine Urine (02/08/2025 10:59 PM CDT) Pathologist [facility] Urine Creatinine 103.9 29.0 - 226.0 mg/dL 02/09/2025 12:00 AM CDT [facility] Urine Voided urine specimen / Unknown Non-blood Collection / Unknown 02/08/2025 10:59 PM CDT 02/08/2025 11:33 PM CDT Narrative [facility] - 02/09/2025 12:00 AM CDT The reference range listed is for first morning urine collection. Redd Rodriguez MD URINE ORDERABLES Final Result Performing Organization Address City/[facility]/ZIP Co de Phone Number [address] [address] * MRSA Screening Culture (02/08/2025 4:11 PM CDT) [facility] MRSA Screening Culture No Methicillin-Resist ant Staphylococcus aureus isolated. 02/10/2025 12:45 PM CDT [facility] Swab (Nares, Left) Non-blood Collection / Unknown 02/08/2025 4:11 PM CDT 02/08/2025 4:16 PM CDT Narrative [facility] - 02/10/2025 12:45 PM CDT Testing is performed using PBP2a antigen detection and cefoxitin screen on isolated S. aureus colonies. This methodology may not detect uncommon mechanisms of methicillin resistance in S. aureus. Redd Rodriguez MD MICROBIOLOGY - GENERAL ORDERABLE S Final Result [address] [address] * (ABNORMAL) Urinalysis w/Reflex Culture Grouper (02/08/2025 3:43 PM CDT) Pathologist [facility] Urine Appearance Clear Clear 02/09/20 4:07 PM CDT [facility] Comment:This result was prev iously suppressed from the chart. Urine Color Straw Colorless, Straw, Yellow, Dark Yellow, Straw-Yellow 02/08/2025 4:07 PM CDT [facility] Comment:This result was prev iously suppressed from the chart. Urine Specific [place] 1.016 1.003 - 1.035 02/08/2025 4:07 PM CDT [facility] Comment:This result was prev iously suppressed from the chart. Urine pH 6.0 5.0 - 8.0 02/08/2025 4:07 PM CDT [facility] Comment:This result was prev iously suppressed from the chart. Urine Glucose Negative Negative mg/dL 02/08/2025 4:07 PM CDT [facility] Comment:This result was prev iously suppressed from the chart. Urine Ketones Negative Negative mg/dL 02/08/2025 4:07 PM CDT [facility] Comment:This result was prev iously suppressed from the chart. Urine Blood Small(A) Negative 02/08/2025 4:07 PM CDT [facility] Comment:This result was prev iously suppressed from the chart. Urine Protein Negative Negative mg/dL 02/08/2025 4:07 PM CDT [facility] Comment:This result was prev iously suppressed from the chart. Urine Bilirubin Negative Negative 4:07 PM CDT [facility] Urine Urobilinogen Negative Negative 02/08/2025 4:07 PM CDT [facility] Urine Nitrite Negative Negative 02/08/2025 4:07 PM CDT [facility] Comment:This result was prev iously suppressed from the chart. Urine Leukocyte Esterase Large(A) Negative 02/08/2025 4:07 PM CDT [facility] Comment:This result was prev iously suppressed from the chart. Urine Mucous Trace Not Seen, Trace /HPF 02/08/2025 4:07 PM CDT [facility] Comment:This result was prev iously suppressed from the chart. Urine Bacteria Not Seen Not Seen /HPF 02/08/2025 4:07 PM CDT [facility] Comment:This result was prev iously suppressed from the chart. Urine Squamous Epithelial Cells OCC Not Seen, OCC, Rare /HPF 02/08/2025 4:07 PM CDT [facility] Comment:This result was prev iously suppressed from the chart. UA Transitional Epi OCC(A) Not Seen, <1 /HPF 02/08/2025 4:07 PM CDT [facility] Comment:This result was prev iously suppressed from the chart. Urine WBC 33(H) <=2 /HPF 02/08/2025 4:07 PM CDT [facility] Urine RBC 2 <=2 /HPF 02/08/2025 4:07 PM CDT [facility] Urine (Urine Clean Catch) Non-blood Collection / Unknown 02/08/2025 3:43 PM CDT 02/08/2025 3:49 PM CDT Narrative [facility] - 02/08/2025 4:07 PM CDT Some reporting parameters within the Urinalysis test have changed due to the implementation of new instrumentation in the [facility], allowing greater sensitivity of measurement. Urinalysis results reported by the [facility] using existing instrumentation, as well as Urinalysis testing performed manually or by back-up methodology at the main dieterich, will remain relatively unchanged. New reporting parameters and units will now be reported for all campuses. us Destiny More MD URINE ORDERABLES Final Result Performing Organization Address City/[facility]/ZIP Co de Phone Number [address] [address] * Urine Culture (02/08/2025 3:43 PM CDT) Pathologist [facility] Urine Culture Normal site leon present. Generally of low significance. Correlate with clinical data and culture history. 02/10/2025 1:49 PM CDT [facility] Urine (Urine Clean Catch) Non-blood Collection / Unknown 02/08/2025 3:43 PM CDT 02/08/2025 3:49 PM CDT Destiny More MD MICROBIOLOGY - GENERAL ORDERABLE S Final Result [address] [address] * Confirm ABORh (02/08/2025 10:54 AM CDT) ABORh Confirm A POS 02/08/2025 10:54 AM CDT [facility] Blood Peripheral blood specimen / Unknown Venipuncture / Unknown 02/08/2025 10:54 AM CDT 02/08/2025 11:20 AM CDT Destiny More MD BLOOD BANK TEST ORDERABLES Final Result [facility] [address] [place] [address], [place] * Type and Screen (02/08/2025 10:53 AM CDT) ABORh A POS 02/08/2025 10:23 AM CDT [facility] ABSC Negative 02/08/2025 10:23 AM CDT [facility] Clot Expiration 02/11/2025 23:59 02/08/2025 10:23 AM CDT [facility] Historical Record Check No History 02/08/2025 10:23 AM CDT [facility] Blood Peripheral blood specimen / Unknown Venipuncture / Unknown 02/08/2025 10:53 AM CDT 02/08/2025 11:20 AM CDT Destiny More MD BLOOD BANK TEST ORDERABLES Final Result [facility] [address] [place] [address], [place] * Prepare RBC:Transfusion Date: 02/08/2025; Transfusion Indications: Symptomatic Anemia- patient reports symptoms of fatigue, weakness, shortness of breath, dizziness or lightheadedness; accc, 1 Units (02/08/2025 10:23 AM CDT) Product Code [id number] [facility] Product Code Text Red Blood Cells [facility] QTY Ordered 1 [facility] Dispense Status Transfused [facility] Unit Expiration [id number] [facility] Unit Number [id number] [facility] Unit Blood Type A- [facility] Bag Volume 383 [facility] XM Interpretation Compatible U T [facility] Unit Blood Type Barcode 0600 [facility] PRBC Product Ready For Tunnel Mucker B2 Blood Bank [facility] RBC Product Status 1 RBC approved [facility] Comment:Order Form 03 when r antonella for product issue. Blood us Destiny More MD BLOOD BANK PRODUCT ORDERABLES Fi nal Result [facility] [address] [place] [address], * Respiratory Multiplex PCR Panel, Nasopharyngeal Swab (02/08/2025 10:07 AM CDT) Adenovirus Not Detected Not Detected 02/08/2025 12:02 PM CDT [facility] Coronavirus 229E Not Detected Not Detected 02/08/2025 12:02 PM CDT [facility] [facility] Coronavirus HKU1 Not Detected Not Detected 02/08/2025 12:02 PM CDT [facility] Coronavirus NL63 Not Detected Not Detected 02/08/2025 12:02 PM CDT [facility] Coronavirus OC43 Not Detected Not Detected 02/08/2025 12:02 PM CDT [facility] COVID-19 (SARS-CoV-2) Not Detected Not Detected 02/08/2025 12:02 PM CDT [facility] Human Metapneumovirus Not Detected Not Detected 02/08/2025 12:02 PM CDT [facility] Human Rhinovirus/Enterov irus Not Detected Not Detected 02/08/2025 12:02 PM CDT [facility] Influenza A Not Detected Not Detected 02/08/2025 12:02 PM CDT [facility] Influenza A H1 Not Detected Not Detected 02/08/2025 12:02 PM CDT [facility] Influenza A H1 2009 Not Detected Not Detected 02/08/2025 12:02 PM CDT [facility] Influenza A H3 Not Detected Not Detected 02/08/2025 12:02 PM CDT [facility] Influenza B Not Detected Not Detected 02/08/2025 12:02 PM CDT [facility] Parainfluenza Virus 1 Not Detected Not Detected 02/08/2025 12:02 PM CDT [facility] Parainfluenza Virus 2 Not Detected Not Detected 02/08/2025 12:02 PM CDT [facility] Parainfluenza Virus 3 Not Detected Not Detected 02/08/2025 12:02 PM CDT [facility] Parainfluenza Virus 4 Not Detected Not Detected 02/08/2025 12:02 PM CDT [facility] Respiratory Syncytial Virus Not Detected Not Detected 02/08/2025 12:02 PM CDT [facility] Bordetella parapertussis Not Detected Not Detected 02/08/2025 12:02 PM CDT [facility] Bordetella pertussis Not Detected Not Detected 02/08/2025 12:02 PM CDT [facility] Chlamydophila pneumoniae Not Detected Not Detected 02/08/2025 12:02 PM CDT [facility] Mycoplasma pneumoniae Not Detected Not Detected 02/08/2025 12:02 PM CDT [facility] Swab Nasopharyngeal structure / Unknown Non-blood Collection / Unknown 02/08/2025 10:07 AM CDT 02/08/2025 10:13 AM CDT [facility] - 02/08/2025 12:02 PM CDT The assay is a qualitative multiplex PCR assay to aid in the diagnosis of respiratory pathogens through simultaneous qualitative detection and identification of multiple pathogens directly from nasopharyngeal swabs (DIRECTOR PROCESS IMPROVEMENT) from individuals with respiratory symptoms. Testing is performed using the [employer] FilmArray Respiratory Panel 2.1 (RP2.1) on the [employer]® [employer]® System. The following organisms are identified using the Cloud[employer]Fire RP 2.1 Panel: Adenovirus, Human Coronavirus (229E, [...] verified by the microbiology laboratory at the [facility] (CLIA Accreditation # [id number] and CAP Accreditation # [id number]). Results must be interpreted within the context of all relevant clinical and laboratory findings. Assay should not be used for monitoring response to therapy. us Destiny More MD MICROBIOLOGY - GENERAL ORDERABLE S Final Result [address] [place] [address] * (ABNORMAL) Comprehensive Metabolic Panel (02/08/2025 10:06 AM CDT) Bilirubin Total 0.4 0.0 - 1.2 mg/dL 02/08/2025 11:02 AM CDT [facility] Comment:Indocyanine Green (I CG) may cause falsely elevated bilirubin results. Total and direct bilirubin must not be measured from samples containing indocyanine green. False elevation of total bilirubin can be seen in patients with IgG concentrations above 28 g/L. eGFR 44(L) >=60 mL/min/1. 73 sq. m 02/08/2025 11:02 AM [facility] Comment: The eGFRcr is calculated with [...] 6.4 - 8.3 gm/dL 02/08/2025 11:02 AM [facility] Calcium Level Total 9.1 8.2 - 10.2 mg/dL 02/08/2025 11:02 AM [facility] Alkaline Phosphatase 65 35 - 104 U/L 02/08/2025 11:02 AM [facility] Albumin Level 3.4(L) 3.5 - 5.2 gm/dL 02/08/2025 11:02 AM [facility] AST 14 <=32 U/L 02/08/2025 11:02 AM [facility] ALT 10 <=33 U/L 02/08/2025 11:02 AM [facility] Sodium Level 142 136 - 145 mmol/L 02/08/2025 11:02 AM [facility] Potassium Level 4.2 3.4 - 4.5 mmol/L 02/08/2025 11:02 AM [facility] Chloride 109(H) 98 - 107 mmol/L 02/08/2025 11:02 AM [facility] CO2 23 22 - 29 mmol/L 02/08/2025 11:02 AM CDT [facility] Anion Gap 10 4 - 14 mmol/L 02/08/2025 11:02 AM CDT [facility] Creatinine 1.27(H) 0.51 - 0.95 mg/dL 02/08/2025 11:02 AM CDT [facility] BUN 13 6 - 23 mg/dL 02/08/2025 11:02 AM CDT [facility] Glucose Level 137(H) 70 - 99 mg/dL 02/08/2025 11:02 AM CDT [facility] Comment: Effective 02/08/16, the glucose reference intervals have been updated based on [place] Diabetes [employer] guidelines (Standards of Medical Care [...] MD LAB BLOOD ORDERABLES Final Resul t [address] [place] [address] * (ABNORMAL) Cardiac Panel (02/08/2025 10:06 AM CDT) Creatine Kinase 146 26 - 192 U/L 02/08/2025 10:43 AM CDT [facility] CKMB 2.6 <=5.3 ng/mL 02/08/2025 10:43 AM CDT [facility] Troponin T 28(H) <=19 ng/L 02/08/2025 10:43 AM CDT [facility] Comment: Reference range established for age [...] MD LAB BLOOD ORDERABLES Final Resul t [facility] [address] [place] [address] * (ABNORMAL) Differential (02/08/2025 10:06 AM CDT) Total Cells 100 02/08/2025 10:42 AM CDT [facility] Manual Neutrophil % 82.0(H) 43.2 - 72.7 % 02/08/2025 10:42 AM CDT [facility] Comment:The Neutrophil count includes Bands. Manual Lymphocyte % 9.0(L) 16.8 - 46.2 % 02/08/2025 10:42 AM CDT [facility] Manual Monocyte % 6.0 5.1 - 12.5 % 02/08/2025 10:42 AM CDT [facility] Manual Eosinophil % 3.0 0.4 - 6.3 % 02/08/2025 10:42 AM CDT [facility] Metamyelocyte % 10:42 AM CDT [facility] Comment:The Metamyelocyte co unt includes Myelocytes. Manual Neutrophil Abs 2.46 1.95 - 7.25 K/uL 02/08/2025 10:42 AM CDT [facility] Manual Lymphocyte Abs 0.27(L) 1.01 - 3.24 K/uL 02/08/2025 10:42 AM CDT [facility] Manual Monocyte Abs 0.18(L) 0.24 - 0.85 K/uL 02/08/2025 10:42 AM CDT [facility] Manual Eosinophil Abs 0.09 0.02 - 0.50 K/uL 02/08/2025 10:42 AM CDT [facility] RBC Morphology PRESENT 02/08/2025 10:42 AM CDT [facility] PLT Morph Normal Normal 02/08/2025 10:42 AM CDT [facility] Anisocytosis Present(A) (none) 02/08/2025 10:42 AM CDT [facility] Ovalocyte Present(A) (none) 02/08/2025 10:42 AM CDT [facility] Blood Peripheral blood specimen / Unknown Venipuncture / Unknown 02/08/2025 10:06 AM CDT 02/08/2025 10:13 AM CDT us Destiny More MD LAB BLOOD ORDERABLES Final Resul t Performing Organization Address City/State/[facility] Co de Phone Number [facility] [address] [place] [address] * X-ray Chest 1 View (02/08/2025 9:47 [...] DIAGNOSTIC IMAGING ORDERABLE S Final Result after 04/20/2024 Insurance MEDICARE PART [facility] AND [facility] MEDIC[facility] Advance Directives * Full Code (Latest Code Status on File) Date Activated Date Inactivated Comments 02/08/2025 8:34 AM Update based o n Advanced Directive Documentation * Full Code Date Activated Date Inactivated Comments 02/08/2025 8:32 AM 02/08/2025 8:32 AM Update based on Advanced Directive Documentation
[2025-04-20] MEDS ORDERED: NA CHLORIDE 0.9% 1,000 ML ONE (17:14)
[2025-04-20] MEDS ORDERED: ONDANSETRON 4 MG/2 ML VIAL ONE (17:14)
[2025-04-20 17:46] LABS: Absolute Lymphocytes (CBC) 0.4 K/uL (0.7-4.9); Hematocrit 25.2 % (36.0-45.0); Hemoglobin 8.4 g/dL (12.0-15.0); MCH 31.1 pg (27.0-35.0); MCHC 33.3 g/dL (32.0-36.0); MCV 93.4 fL (80-100); MPV 8.4 fL (7.6-11.3); Nucleated RBC Absolute Count 0.0 (0-0); Nucleated Red Blood Cells % 0.3 % (0-0); RBC Red Blood Cell Count 2.70 M/uL (3.86-4.86); White Blood Count 2.80 thou/uL (4.3-10.9)
[2025-04-20 18:01] LABS: ALT/SGPT 21.0 U/L (13-56); AST/SGOT 32.0 U/L (15-37); Albumin 2.4 g/dL (3.4-5.0); Albumin/Globulin Ratio 0.5 (1.1-1.8); Alkaline Phosphatase 93.0 U/L (45-117); Anion Gap 7.4 mEq/L (5.0-15.0); BUN Blood Urea Nitrogen 18.0 mg/dL (7-18); Globulin 4.9 g/dL (2.3-3.5); Glucose Level 132.0 mg/dL (74-106); Lipase 57.0 U/L (13-75); Potassium 3.4 mEq/L (3.5-5.1)
--- NOTE | 2025-04-20 18:21 | RAD REPORT ---
EXAMINATION: Abdomen Pelvis W Contrast CLINICAL INDICATION: Female, 74 years old.ABD PAIN TECHNIQUE: CT abdomen and pelvis was performed, after the administration of IV contrast, as [facility]. Axial, sagittal and coronal reconstructions were obtained. One or more of the following dose reduction techniques were used: Automated exposure control, adjustment of the mA and/o r kV according to patient size, and/or iterative reconstruction. Unless otherwise specified, incidental findings do not require dedicated imaging follow-up. [id number]. COMPARISON: No prior exams FINDINGS: LOWER CHEST: Small left pleural effusion with enhancement that is probably either complex or chronic. Mild cardiomegaly. Small hiatal hernia. Aortic valve and mitral annular prostheses UPPER GI: No significant abnormality. LIVER: Hepatic steatosis, but otherwise unremarkable. GALLBLADDER/BILE DUCTS: Cholelithiasis without CT evidence of acute cholecystitis.? PANCREAS: Atrophy but no acute findings. SPLEEN: Unremarkable. ADRENALS: No adrenal masses. KIDNEYS AND URETERS: No hydronephrosis. No suspicious renal mass. No renal calculi. No ureteral calcu li. ABDOMINAL AORTA AND OTHER VESSELS: Moderate atherosclerotic changes without aortic aneurysm. PERITONEUM: No abnormal free fluid. No free air. LYMPH NODES: No pathologic lymphadenopathy. ABDOMINAL WALL: Small fat-containing periumbilical hernia. SMALL BOWEL/COLON: Small bowel has normal course and caliber. No colonic wall thickening or pericolon ic inflammatory changes. Appendectomy Mild diverticulosis without diverticulitis. The anus appears circumferentially thickened. URINARY BLADDER: Underdistended but grossly unremarkable. REPRODUCTIVE ORGANS: No pathologic process. MUSCULOSKELETAL: No acute or suspicious osseous abnormality. ADDITIONAL FINDINGS: None. IMPRESSION: No acute findings within the abdomen or pelvis. Circumferential thickening at the anus may reflect in flammatory changes. . Loculated mildly enhancing small left pleural effusion is probably chronic and complex. Comparison wi th outside imaging would be helpful to determine chronicity.
--- NOTE | 2025-04-20 18:52 | EDPHYS ---
Physician Documentation [facility] Name: Tanisha Newsome Age: 74 yrs Sex: Female : 1950 Arrival Date: 04/20/2025 Time: 15:49 Bed 14 Private MD: ED Physician Man hSook HPI: 04/20 18:23 This 74 yrs old Female presents to ER via Wheelchair with complaints of Bloody Stools, kb Weakness. 18:23 Pt is a 74 year old female who presents for weakness, nausea, vomiting for 3 days with kb one episode of black stool yesterday. Denies fever. . Historical: - Allergies: 15:57 Metformin HCl; me1 - PMHx: 15:57 breast cancer; depressive disorder; diabetes mellitus; Hypercholesterolemia; me1 Hypertensive disorder; Gastroesophageal reflux disease; - PSHx: 15:57 pacemaker; Valve replacement; me1 - Immunization history:: Adult Immunizations up to date. - Infectious Disease History:: Denies. - Social history:: Smoking status: Reported history of juuling and/or vaping. ROS: 18:22 Constitutional: As per HPI kb Exam: 18:22 Constitutional: This is a well developed, well nourished patient who is awake, alert, kb and in no acute distress. Head/Face: Normocephalic, atraumatic. ENT: Moist Mucous membranes Cardiovascular: Regular rate Respiratory: Respirations even and unlabored. No increased work of breathing. Talking in full sentences Abdomen/GI: Soft, non-tender. No distention Skin: Warm, dry with normal turgor. Normal color. MS/ Extremity: Pulses equal, no cyanosis. Neurovascular intact. Full, normal range of motion. Neuro: Awake and alert, GCS 15, oriented to person, place, time, and situation. Vital Signs: 15:54 BP 107 / 48; Pulse 84; Resp 20; Temp 98.7; Pulse Ox 95% 2 lpm ; Weight 108.86 kg; me1 Height 5 ft. 7 in. ; Pain 7/10; 17:33 BP 122 / 52; Pulse 75; Resp 17; Pulse Ox 96% on 2 lpm NC; Pain 6/10; rg5 18:00 BP 131 / 57; Pulse 72; Resp 17; Pulse Ox 100% on 2 lpm NC; rg5 19:00 BP 129 / 62; Pulse 74; Resp 18; Pulse Ox 100% on 2 lpm NC; rg5 20:32 BP 119 / 60; Pulse 82; Resp 18; Pulse Ox 98% on 2 lpm NC; rg5 15:54 Body Mass Index 37.59 (108.86 kg, 170.18 cm) me1 15:54 Pain Scale: Adult me1 17:33 Pain Scale: Adult rg5 MDM: 15:52 Medical Screening Exam initiated kb 18:48 Differential diagnosis: bowel obstruction, colitis, diverticulitis, dehydration, kb abnormal electrolytes, gi bleed. Data reviewed: vital signs, nurses notes. Consideration of Admission/Observation Patient was admitted/placed on observation. Escalation of care including admission/observation considered. Management of patient was discussed with the following: Hospitalist: dr Prasad accepts pt for admission. Historians other than the Patient: Family Member: daughter. Counseling: I had a detailed discussion with the patient and/or guardian regarding the historical points, exam findings, and any diagnostic results supporting the discharge/admit diagnosis, lab results, radiology results, the need for further work-up and treatment in the hospital. 04/20 16:02 Order name: Type And Screen kb 04/20 15:56 Order name: CBC with Diff; Complete Time: 19:06 kb 04/20 15:56 Order name: CMP; Complete Time: 18:04 kb 04/20 15:56 Order name: Lipase; Complete Time: 18:04 kb 04/20 19:06 Order name: CBC Smear Scan; Complete Time: 19:07 EDND 04/20 19:46 Order name: CBC with Automated Diff EDND 04/20 19:46 Order name: CBC with Automated Diff EDND 04/20 19:46 Order name: Comprehensive Metabolic Panel EDND 04/20 19:46 Order name: Comprehensive Metabolic Panel EDND 04/20 19:47 Order name: Hemoglobin EDND 04/20 19:47 Order name: Hemoglobin EDND 04/20 19:47 Order name: Hemoglobin EDND 04/20 19:47 Order name: Hemoglobin EDND 04/20 15:56 Order name: CT Abd/Pelvis - IV Contrast Only; Complete Time: 18:22 kb 04/20 19:46 Order name: CONS Physician Consult EDND 04/20 15:56 Order name: IV Saline Lock; Complete Time: 17:25 kb 04/20 15:56 Order name: Labs collected and sent; Complete Time: 17:25 kb Administered Medications: 17:32 Drug: NS 0.9% IV 500 ml 500 ml IV at 1 bolus once; to be given as a bolus over 30 rg5 minutes Volume: 500 ml; Route: IV; Rate: 1 bolus; Site: right antecubital; 20:57 Follow up: IV Status: Completed infusion; IV Intake: 500ml rg5 17:33 Drug: Ondansetron IVP 4 mg IVP once; over 2 minutes Route: IVP; Site: right antecubital;rg5 18:11 Follow up: Response: No adverse reaction rg5 19:40 Drug: Piperacillin-Tazobactam IVPB 3.375 grams IVPB once over 60 mins; (mix in NS 100 rg5 mL) Route: IVPB; Infused Over: 60 mins; Site: right antecubital; 20:57 Follow up: IV Status: Completed infusion rg5 20:57 Drug: Acetaminophen PO 650 mg PO once Route: PO; rg5 21:31 Follow up: Response: No adverse reaction; Pain is decreased rg5 Disposition Summary: 04/20/25 18:52 Hospitalization Ordered Notes: Hospitalization Status: Inpatient Admission kb Provider: Felipe Prasad Location: Telemetry/MedSurg (Inpatient) kb Condition: Stable kb Problem: new kb Symptoms: are unchanged kb Bed/Room Type: Standard Room Assignment: [facility](04/20/25 20:06) [facility] Diagnosis - Weakness kb - Nausea with vomiting, unspecified kb Forms: - Medication Reconciliation Form kb - SBAR form kb - Leadership Thank You Letter Signatures: Dispatcher [employer] EDMS Zulema Cui, DYER AND WASHER-C DYER AND WASHER-CkElizabeth Suarez, RN RN me1 Renetta Herring [facility] Charli Dia, RN RN rg5 Corrections: (The following items were deleted from the chart) 15:57 15:57 CBC+H.LAB.BRZ ordered. EDMS EDMS 15:57 15:57 COMPREHENSIVE METABOLIC PANEL+C.LAB.BRZ ordered. EDMS EDMS 15:57 15:57 LIPASE+C.LAB.BRZ ordered. EDMS EDMS 15:57 15:57 Abdomen Pelvis W Con+CT.RAD.BRZ ordered. EDMS EDMS 20:06 18:52 kb kmf
--- NOTE | 2025-04-20 18:52 | ER ---
Nurse's Notes [facility] Name: Tanisha Newsome Age: 74 yrs Sex: Female : 1950 Arrival Date: 04/20/2025 Time: 15:49 Bed 14 Private MD: Diagnosis: Weakness;Nausea with vomiting, unspecified Presentation: 04/20 15:54 Chief complaint: Patient states: she has had black stool yesterday. Reports generalized me1 weakness. Had n/v a few days ago but today is nauseated but has not vomited. Coronavirus screen: At this time, the client does not indicate any symptoms associated with coronavirus-19. Ebola Screen: No symptoms or risks identified at this time. Initial Sepsis Screen: Does the patient meet any 2 criteria? No. Patient's initial sepsis screen is negative. Does the patient have a suspected source of infection? No. Patient's initial sepsis screen is negative. Risk Assessment: Do you want to hurt yourself or someone else? Patient reports no desire to harm self or others. Onset of symptoms was April 19, 2025. 15:54 Method Of Arrival: Wheelchair me1 15:54 Acuity: ELLEN 3 me1 Historical: - Allergies: 15:57 Metformin HCl; me1 - PMHx: 15:57 breast cancer; depressive disorder; diabetes mellitus; Hypercholesterolemia; me1 Hypertensive disorder; Gastroesophageal reflux disease; - PSHx: 15:57 pacemaker; Valve replacement; me1 - Immunization history:: Adult Immunizations up to date. - Infectious Disease History:: Denies. - Social history:: Smoking status: Reported history of juuling and/or vaping. Screenin:00 [facility] ED Fall Risk Assessment (Adult) History of falling in the last 3 months, rg5 including since admission No falls in past 3 months (0 pts) Confusion or Disorientation No (0 pts) Intoxicated or Sedated No (0 pts) Impaired Gait Yes (1 pt) Mobility Assist Device Used Yes (1 pt) Altered Elimination Yes (1 pt) Score/Fall Risk Level 3 or more points = High Risk Oriented to surroundings, Maintained a safe environment, Hourly rounding (assess needs \T\ fall precautionary measures) done. Abuse screen: Denies threats or abuse. Nutritional screening: No deficits noted. Tuberculosis screening: No symptoms or risk factors identified. Assessment: 18:00 General: Appears in no apparent distress. uncomfortable, Behavior is calm, cooperative, rg5 appropriate for age. 18:00 Pain: Complains of pain in coccyx Quality of pain is described as aching. Neuro: Level rg5 of Consciousness is awake, alert, obeys commands, Oriented to person, place, time, situation. Cardiovascular: Denies chest pain, Patient's skin is warm and dry. GI: Abdomen is round non-distended, Reports constipation, bloody stool. : No signs and/or symptoms were reported regarding the genitourinary system. EENT: No signs and/or symptoms were reported regarding the EENT system. Derm: Skin is fragile, Skin is dry, Skin is normal. Musculoskeletal: Circulation, motion, and sensation intact. Range of motion: intact in all extremities. 19:00 Reassessment: Patient and/or family updated on plan of care and expected duration. Pain rg5 level reassessed. Patient is alert, oriented x 3, equal unlabored respirations, skin warm/dry/pink. 20:00 Reassessment: Patient and/or family updated on plan of care and expected duration. Pain rg5 level reassessed. Patient is alert, oriented x 3, equal unlabored respirations, skin warm/dry/pink. Patient states symptoms have improved. 21:30 Reassessment: No changes from previously documented assessment. Patient and/or family rg5 updated on plan of care and expected duration. Pain level reassessed. Patient is alert, oriented x 3, equal unlabored respirations, skin warm/dry/pink. Vital Signs: 15:54 BP 107 / 48; Pulse 84; Resp 20; Temp 98.7; Pulse Ox 95% 2 lpm ; Weight 108.86 kg; me1 Height 5 ft. 7 in. ; Pain 7/10; 17:33 BP 122 / 52; Pulse 75; Resp 17; Pulse Ox 96% on 2 lpm NC; Pain 6/10; rg5 18:00 BP 131 / 57; Pulse 72; Resp 17; Pulse Ox 100% on 2 lpm NC; rg5 19:00 BP 129 / 62; Pulse 74; Resp 18; Pulse Ox 100% on 2 lpm NC; rg5 20:32 BP 119 / 60; Pulse 82; Resp 18; Pulse Ox 98% on 2 lpm NC; rg5 15:54 Body Mass Index 37.59 (108.86 kg, 170.18 cm) me1 15:54 Pain Scale: Adult me1 17:33 Pain Scale: Adult rg5 ED Course: 15:51 Patient arrived in ED. mr 15:52 See Zulema[facility] kb 15:52 Man Shook MD is Attending Physician. kb 15:57 Triage completed. me1 15:57 Arm band placed on Patient placed in waiting room. me1 17:10 Charli Dia, RN is Primary Nurse. rg5 17:25 Initial lab(s) drawn, by me. Inserted saline lock: 22 gauge in right antecubital area, rk3 using aseptic technique. Blood collected. Flushed with 10 mL NS. 18:00 Patient has correct armband on for positive identification. Bed in low position. Call rg5 light in reach. Side rails up X 1. Adult w/ patient. Door closed. Noise minimized. Warm blanket given. 18:00 No provider procedures requiring assistance completed. rg5 18:06 CT Abd/Pelvis - IV Contrast Only In Process Unspecified. EDMS 18:52 Felipe Prasad MD is Hospitalizing Provider. kb 21:31 Provided Education on: needs for admit. rg5 21:31 Patient admitted, IV remains in place. intact. rg5 Administered Medications: 17:32 Drug: NS 0.9% IV 500 ml 500 ml IV at 1 bolus once; to be given as a bolus over 30 rg5 minutes Volume: 500 ml; Route: IV; Rate: 1 bolus; Site: right antecubital; 20:57 Follow up: IV Status: Completed infusion; IV Intake: 500ml rg5 17:33 Drug: Ondansetron IVP 4 mg IVP once; over 2 minutes Route: IVP; Site: right antecubital;rg5 18:11 Follow up: Response: No adverse reaction rg5 19:40 Drug: Piperacillin-Tazobactam IVPB 3.375 grams IVPB once over 60 mins; (mix in NS 100 rg5 mL) Route: IVPB; Infused Over: 60 mins; Site: right antecubital; 20:57 Follow up: IV Status: Completed infusion rg5 20:57 Drug: Acetaminophen PO 650 mg PO once Route: PO; rg5 21:31 Follow up: Response: No adverse reaction; Pain is decreased rg5 Medication: 18:00 VIS not applicable for this client. rg5 Intake: 20:57 IV: 500ml; Total: 500ml. rg5 Outcome: 18:52 Decision to Hospitalize by Provider. kb 21:31 Admitted to Med/surg accompanied by tech, via stretcher, with oxygen, rg5 21:31 Condition: stable 21:31 Instructed on the need for admit, 22:02 Patient left the ED. rg5 Signatures: Dispatcher [employer] EDZulema Gilman, REFRIGERATION ENGINEER-C REFRIGERATION ENGINEER-CkLoren Calloway, Reg Reg mr Elizabeth Del Rio, RN RN me1 Charli Dia RN RN rg5 Janny Galeas rk3
[2025-04-20 19:06] LABS: Blood Morphology Comment NOT SEEN (NOT SEEN); White Blood Cell Scan OK (OK)
[2025-04-20] MEDS ORDERED: NA CHLORIDE 0.9% 100 ML ONE (19:24)
[2025-04-20] MEDS ORDERED: PIPERACIL/TAZO 3.375 GM VIAL IV ONE (19:24)
--- NOTE | 2025-04-20 19:40 | P.HP ---
Certification for Inpatient Patient admitted to: Inpatient With expected LOS: >2 Midnights Practitioner: I am a practitioner with admitting privileges, knowledge of patient current condition, hospital course, and medical plan of care. Services: Services provided to patient in accordance with Admission requirements found in Title 42 Section 412.3 of the Code of Federal Regulations Patient History Date of Service: 04/20/25 Reason for admission: GL bleed History of Present Illness: 74-year-old woman with a history of hypertension, insulin-dependent diabetes mellitus, GERD, history of breast cancer, hyperlipidemia, hypertension, depression, active valve replacement, status post pacemaker placement, who was brought to ER with melena. Patient complains of generalized weakness and nausea and vomiting for the last 3 days and 2 episodes of dark stools since yesterday. No fever or chills. No sick contacts. Patient had aortic valve replacement and pacemaker placement a couple of weeks ago at [facility], Patient denies any abdominal discomfort. Denies any diarrhea Complains of nausea and vomiting. Patient was assessed in the ER and was admitted for further management of GI bleed and anemia Allergies metformin Allergy (Verified 04/13/25 20:29) Hives Home medications list reviewed: Yes Home Medications: Amlodipine Besylate 10 mg .ROUTE DAILY 04/13/25 Atorvastatin Calcium [Lipitor*] 50 mg PO BEDTIME 04/13/25 Budesonide [Eohilia] 0.5 syr PO DAILY 04/13/25 Clopidogrel Bisulfate [Plavix*] 75 mg PO DAILY 04/13/25 Fluticasone/Umeclidin/Vilanter [Trelegy Ellipta 200-62.5-25] 200 mcg PO DAILY 04/13/25 Lactulose 10 gm PO DAILY 04/13/25 Methocarbamol 500 mg PO BEDTIME 04/13/25 Mirtazapine [Remeron*] 15 mg PO DAILY 04/13/25 OLANZapine [Zyprexa*] 2.5 mg PO DAILY 04/13/25 Pantoprazole [Protonix Tab*] 40 mg PO DAILY 04/13/25 Tramadol HCl [Ultram] 50 mg PO PRN 04/13/25 Trazodone [Desyrel*] 50 mg PO DAILY 04/13/25 - Past Medical/Surgical History Diabetic: Yes Past Medical History: Reviewed- Non-Contributory -: Diabetes mellitus type 2 -: COPD -: Chronic respiratory failure with hypoxia Past Surgical History: Reviewed- Non-Contributory -: Pacemaker placement -: Aortic valve replacement - Social History Smoking Status: Never smoker Alcohol use: No CD- Drugs: No Caffeine use: Yes Review of Systems 10-point ROS is otherwise unremarkable Physical Examination - Vital Signs Temperature: 98.4 F Blood Pressure: 132/76 Pulse: 78 Respirations: 18 Pulse Ox (%): 94 - Physical Exam General: Alert, Oriented x3, Obese HEENT: Atraumatic, Normocephalic Neck: Supple Respiratory: Clear to auscultation bilaterally, Normal air movement Cardiovascular: No edema, Regular rate/rhythm, Normal S1 S2 Capillary refill: <2 Seconds Gastrointestinal: Soft and benign, W/out hepatosplenomegaly, Tenderness Musculoskeletal: No clubbing Integumentary: No rashes Neurological: Other (Alert awake nonfocal) Lymphatics: No axilla or inguinal lymphadenopathy - Studies Laboratory Data (last 24 hrs) 04/20/25 04/20/25 17:21 17:21 WBC 2.80 L Hgb 8.4 L Hct 25.2 L Plt Count 115 L Sodium 135 L Potassium 3.4 L BUN 18 Creatinine 1.62 H Glucose 132 H Total Bilirubin 0.3 AST 32 ALT 21 Alkaline Phosphatase 93 Lipase 57 Assessment and Plan - Plan GI bleed Monitor closely on telemetry GI consulted Start on PPI Keep n.p.o. for now IV hydration Hypertension Antihypertensives titrated Continue home medications and titrate as needed Hyperlipidemia Continue statin CKD stage II Monitor renal parameters Electrolytes monitor and replace accordingly Diabetes Insulin sliding scale Accu-Chek before every meal and at bedtime Anemia of chronic disease Monitor H&H closely transfuse as needed GI/DVT prophylaxis Advanced directive full code Discharge Plan: Home Plan to discharge in: 48 Hours - Advance Directives Does patient have a Living Will: No Does patient have a Durable POA for Healthcare: No - Code Status/Comfort Care Code Status: Full Code Time Spent Managing Pts Care (In Minutes): 48
[2025-04-20] MEDS ORDERED: ACETAMINOPHEN 325 MG TABLET ONE (20:33)
[2025-04-20] MEDS: PANTOPRAZOLE 40 MG INJ IVP SCH (22:15)
[2025-04-20] MEDS: NA CHLORIDE 0.9% 1,000 ML IV SCH (22:18)
[2025-04-21] MEDS: ACETAMINOPHEN 325 MG TABLET PO PRN (06:12)
[2025-04-21 07:10] LABS: Absolute Lymphocytes (CBC) 0.3 K/uL (0.7-4.9); Hematocrit 23.0 % (36.0-45.0); Hemoglobin 7.6 g/dL (12.0-15.0); MCH 31.2 pg (27.0-35.0); MCHC 33.0 g/dL (32.0-36.0); MCV 94.4 fL (80-100); MPV 8.4 fL (7.6-11.3); Nucleated RBC Absolute Count 0.0 (0-0); Nucleated Red Blood Cells % 0.1 % (0-0); RBC Red Blood Cell Count 2.43 M/uL (3.86-4.86); White Blood Count 2.20 thou/uL (4.3-10.9)
[2025-04-21 07:26] LABS: ALT/SGPT 17.0 U/L (13-56); AST/SGOT 25.0 U/L (15-37); Albumin 2.1 g/dL (3.4-5.0); Albumin/Globulin Ratio 0.5 (1.1-1.8); Alkaline Phosphatase 80.0 U/L (45-117); Anion Gap 7.4 mEq/L (5.0-15.0); BUN Blood Urea Nitrogen 15.0 mg/dL (7-18); Globulin 3.9 g/dL (2.3-3.5); Glucose Level 146.0 mg/dL (74-106); Potassium 3.4 mEq/L (3.5-5.1)
[2025-04-21] MEDS: OLANZapine 2.5 MG TAB PO SCH (08:55)
[2025-04-21] MEDS: AMLODIPINE 10 MG TAB PO SCH (08:55)
[2025-04-21 09:07] LABS: Platelets, Giant PRESENT; White Blood Cell Scan OK (OK)
[2025-04-21 09:08] LABS: Blood Morphology Comment NOT SEEN (NOT SEEN)
--- NOTE | 2025-04-21 17:29 | P.PN ---
Date of Service: 04/21/25 Subjective Patient with no new complaints. Patient states she is upset because she was here to help her daughter as she is dealing with lung cancer and had a lumpectomy. She was supposed to care for her daughter as she was dealing with a lung cancer but unfortunately she is not doing well either. Physical Examination - Vital Signs reviewed - Physical Exam General: Alert, Oriented x3, Obese Respiratory: Clear to auscultation bilaterally, Normal air movement Cardiovascular: No edema, Regular rate/rhythm, Normal S1 S2 Gastrointestinal: Soft and benign, W/out hepatosplenomegaly, Tenderness Musculoskeletal: No clubbing Integumentary: No rashes Neurological: Other (Alert awake nonfocal) Assessment and Plan - Assessment/Plan 1. Pancytopenia; patient has thrombocytopenia along with leukopenia and anemia. There was concern for GI bleeding will get GI consult. Keep patient on PPI. However concern is for some underlying malignancy or myelodysplastic syndrome or myelofibrosis. Will consult hematology oncology as well. Patient will be on a clear liquid diet and n.p.o. after midnight.Spoke with hematology and they wanted to do a peripheral blood smear review. They will follow the patient up as an outpatient and may not be able to see him in the hospital setting. 2. Hypertension; Antihypertensives titrated. Continue home medications and titrate as needed 3. Hyperlipidemia; Continue statin 4. CKD stage II; Monitor renal parameters. Electrolytes monitor and replace accordingly 5. Diabetes; Insulin sliding scale. Accu-Chek before every meal and at bedtime GI/DVT prophylaxis Advanced directive full code Discharge Plan: Home Plan to discharge in: 48 Hours - Advance Directives Does patient have a Living Will: No Does patient have a Durable POA for Healthcare: No - Code Status/Comfort Care Code Status: Full Code Time Spent Managing Pts Care (In Minutes): 48
[2025-04-21] MEDS: TRAZODONE 50 MG TABLET PO SCH (20:14)
[2025-04-21] MEDS: MIRTAZAPINE 15 MG TAB PO SCH (20:14)
[2025-04-21 20:45] LABS: Absolute Lymphocytes (CBC) 0.5 K/uL (0.7-4.9); Hematocrit 24.1 % (36.0-45.0); Hemoglobin 7.9 g/dL (12.0-15.0); MCH 31.2 pg (27.0-35.0); MCHC 32.9 g/dL (32.0-36.0); MCV 94.9 fL (80-100); MPV 8.7 fL (7.6-11.3); Nucleated RBC Absolute Count 0.0 (0-0); Nucleated Red Blood Cells % 0.1 % (0-0); RBC Red Blood Cell Count 2.54 M/uL (3.86-4.86); White Blood Count 2.60 thou/uL (4.3-10.9)
[2025-04-21] MEDS: ATORVASTATIN 20 MG TAB PO SCH (23:11)
[2025-04-21] MEDS: NA CHLORIDE 0.9% 250 ML ONE (23:34)
[2025-04-22] MEDS: TRAMADOL HCL 50 MG TAB PO PRN (00:03)
[2025-04-22] MEDS: DIPHENHYDRAMINE 50 MG/ML VIAL IV ONE (02:55)
[2025-04-22] MEDS: NA CHLORIDE 0.9% 1,000 ML IV SCH (02:55)
[2025-04-22 07:20] LABS: Absolute Lymphocytes (CBC) 0.3 K/uL (0.7-4.9); Hematocrit 28.1 % (36.0-45.0); Hemoglobin 9.3 g/dL (12.0-15.0); MCH 30.8 pg (27.0-35.0); MCHC 32.9 g/dL (32.0-36.0); MCV 93.4 fL (80-100); MPV 8.5 fL (7.6-11.3); Nucleated RBC Absolute Count 0.0 (0-0); Nucleated Red Blood Cells % 0.0 % (0-0); RBC Red Blood Cell Count 3.01 M/uL (3.86-4.86); White Blood Count 3.10 thou/uL (4.3-10.9)
[2025-04-22 07:37] LABS: ALT/SGPT 17.0 U/L (13-56); AST/SGOT 21.0 U/L (15-37); Albumin 2.2 g/dL (3.4-5.0); Albumin/Globulin Ratio 0.5 (1.1-1.8); Alkaline Phosphatase 81.0 U/L (45-117); Anion Gap 5.4 mEq/L (5.0-15.0); BUN Blood Urea Nitrogen 9.0 mg/dL (7-18); Globulin 4.2 g/dL (2.3-3.5); Glucose Level 146.0 mg/dL (74-106); Potassium 3.4 mEq/L (3.5-5.1)
[2025-04-22] MEDS ORDERED: TRAMADOL HCL 50 MG TAB PO SCH (08:00)
[2025-04-22] MEDS ORDERED: LIDOCAINE 1% MPF 5 ML VIAL ONE (08:34)
[2025-04-22] MEDS ORDERED: EPINEPHRINE 1 MG/ML VIAL ONE (08:50)
[2025-04-22] MEDS: SODIUM CHLORIDE 0.9% 10ML INJ IV PRN (10:05)
[2025-04-22] MEDS: POTASSIUM CL SA 10 MEQ TAB PO ONE (10:05)
--- NOTE | 2025-04-22 10:30 | P.PN ---
Subjective Date of Service: 04/22/25 Chief Complaint: GL bleed Subjective: Improving, Working w/ PT (Patient is status post EGD suppressed revealed gastritis, small hiatal hernia. She is very weak and will benefit from therapies.) Physical Examination - Vital Signs Temperature: 98 F Blood Pressure: 124/41 Pulse: 78 Respirations: 22 Pulse Ox (%): 100 - Physical Exam General: In no apparent distress, Cooperative, Obese, Other (Physically deconditioned) HEENT: Atraumatic, Normocephalic Respiratory: Clear to auscultation bilaterally, Normal air movement Cardiovascular: No edema, Normal pulses, Regular rate/rhythm, Normal S1 S2, Other (Pacemaker implant), Systolic murmur Neurological: Normal speech Assessment And Plan - Plan Assessment Patient is a 74-year-old female who presented to the hospital with melenic stools. She is status post aortic valve replacement and pacemaker placement recently. She was on Plavix prior to admission. Patient has been transfused a unit of blood for downtrending hemoglobins. Heme intersperse EGD on 04/22 shows gastritis and small hiatal hernia. Biopsies taken Upper GI bleeding Acute blood loss anemia Pancytopenia Antiplatelet use Aortic valve replacement Pacemaker in place Hypokalemia NITISH Hypertension Hyperlipidemia CKD stage II Physical deconditioning Plan: Status post EGD with biopsy EGD with gastritis and antral erosion, small hiatal hernia Continue IV PPI Continue hemodynamic monitoring Monitor renal function Replace electrolytes, potassium Check magnesium and phosphorus PT/OT ordered Hematology consulted for pancytopenia. Hematology wanted peripheral blood smear. Otherwise, patient will need to follow-up outpatient Resume routine home medication if appropriate
--- NOTE | 2025-04-22 10:39 | CON ---
Date of Consultation: 04/22/2025 Reason For Consultation: Melena and anemia. History Of Present Illness: This patient is a 74-year-old white female with history of diabetes; hyp ertension; hyperlipidemia; gastric reflux disease; depression; breast cancer, status post left lumpec skip and chemotherapy; pacemaker; and aortic valve replacement. The patient presented to the [facility] with melena. She states approximately 2 days ago, she had melena associated with nausea, vomiting. She states she has had chronic nausea ever since she was put on chemotherapy for her breast cancer 2 years ago. She denies any hematemesis, hematochezia, fevers, chills, night sweats, change in bowel habits, diarrhea, constipation. Past Medical History: Significant for diabetes; hypertension; hyperlipidemia; gastric reflux disease ; depression; breast cancer, status post left lumpectomy or partial breast removal she states and lobo motherapy with mets to the ribs she reports. Pacemaker and aortic valve replacement. Medications: Include amlodipine, Lipitor, budesonide, Plavix, Trelegy Ellipta inhaler, lactulose, me thocarbamol, Remeron, Zyprexa, Protonix, Ultram, trazodone. Allergies: METFORMIN. Social History: , 2 daughters. Quit tobacco 3 years ago, now vapes only. No alcohol. Family History: Father of congestive heart failure. Mother of congestive heart failure by her recollection. Review of Systems: She had melena, nausea, vomiting 2 days ago. She says she has not had any melena since then. No shyann sis. She continues to have nausea, however. She denies any fevers, chills, night sweats, hematemesi s, coffee-grounds emesis, hematochezia, hemoptysis, epistaxis, hematuria, dysuria, polyuria, polydips ia, chest pain, shortness of breath, seizure, syncope, muscle aches, joint aches, backaches. She askew s have depression, but no known anxiety. Physical Examination: Vital Signs: She is 5 feet 7 inches, 222 pounds, BMI 34.8 kg/sq m. Temperature 97.6 degrees Fahrenh eit, pulse 81, respirations 18, blood pressure 105/71, O2 sat 98% to 100% on room air. General: She is an obese female, lying in bed, in no acute distress. HEENT: Normocephalic, atraumatic. Anicteric. Pupils equal, round, and reactive to light. Extraocu lar movements are intact. Oropharynx is clear. Neck: Supple. No masses. Respiratory: Good airway movement. Cardiac: Regular rate and rhythm. Abdominal: Soft, nontender, nondistended. Obese. No hepatosplenomegaly. No peritoneal or Nato[place] s ign. No rebound. Extremities: No clubbing, cyanosis, or edema. 2+ pulses. Neuro: Alert and oriented x3. Grossly nonfocal. 5/5 motor strength. Able to move all extremities well. Laboratory Data: The patient has a white count of 3.1, hemoglobin from 7.9 to 9.3 with transfusion o f 1 unit packed RBCs yesterday, hematocrit 28, MCV of 93, polys of 102, up from 90 yesterday, 71% vasquez trophils, lymphocytes 10%, monocytes 13%, eosinophils 6%, basophils 2%. The patient has a sodium 142 ; potassium 3.4; chloride 109; bicarb 31; BUN of 9; creatinine of 1.19, down from 1.62 on admission; glucose 146; calcium 8.6. Total bili 0.4, AST of 21, ALT of 17, alk phos 81, total protein 6.4, al bumin 2.2. CT abdomen and pelvis revealed no acute findings. Circumferential thickening of the anus could reflect inflammatory changes, loculated, mildly enlarged. Small left pleural effusion, probab ly chronic and complex. Otherwise negative. Impression: 1. Melena, 2 days of gastrointestinal bleed. Hemoglobin is down. She is anemic. She denies any hem atemesis, coffee-grounds emesis, hematochezia, fevers, chills, night sweats, change in bowel habits, diarrhea, constipation, history of colon cancer. No family history of colon cancer. She had nausea, vomiting 2 days ago, only nausea now that has been chronic since on chemotherapy for her breast canc er over the past 2 years. 2. Anemia. Hemoglobin down to 7.3 at the lowest level, now it is up to 9.3 with blood transfusion in preparation for endoscopy today. 3. Thrombocytopenia. Platelets are low at 81, now up to 102, status post blood transfusion. Albumin is 2.2. We will need to check PT, PTT. Of note, there was no fatty liver or cirrhosis noted on CT scan. The platelets are low for unclear reason. 4. History of diabetes; hypertension; hyperlipidemia; gastric reflux disease; depression; breast canc er, status post lumpectomy, partial breast resection with mets to the ribs recently with c hemotherapy; pacemaker; and aortic valve replacement. Recommendations: 1. Continue IV fluids. 2. I agree with packed RBCs x1 unit transfused overnight which was done. 3. PPI therapy. 4. EGD. 5. Check PT, PTT. 6. Check viral hepatitis panel. 7. Check HEP score in this patient on the further workup of her thrombocytopenia and possible liver d isease. 8. Hold Plavix at this time. SUE/NIKA Voice ID: [id number] Report ID: [id number]
[2025-04-22 10:44] LABS: Percent Reticulocyte Count 1.09 % (0.4-2.05)
[2025-04-22 10:53] LABS: Absolute Lymphocytes (CBC) 0.3 K/uL (0.7-4.9); Hematocrit 26.9 % (36.0-45.0); Hemoglobin 8.9 g/dL (12.0-15.0); MCH 30.8 pg (27.0-35.0); MCHC 33.1 g/dL (32.0-36.0); MCV 92.9 fL (80-100); MPV 8.5 fL (7.6-11.3); Nucleated RBC Absolute Count 0.0 (0-0); Nucleated Red Blood Cells % 0.1 % (0-0); RBC Red Blood Cell Count 2.90 M/uL (3.86-4.86); White Blood Count 3.40 thou/uL (4.3-10.9)
[2025-04-22 11:54] LABS: C-Reactive Protein 36.6
[2025-04-22 11:56] LABS: Ferritin 175.5 ng/mL (8-252); Iron 54.0 ug/dL (50-170)
[2025-04-22 12:04] LABS: Magnesium 1.9
[2025-04-22 12:49] LABS: Differential Total Cells Count 100; Segmented Neutrophils 71 % (40-80)
[2025-04-22 12:50] LABS: Anisocytosis 1+; Blood Morphology Comment NOTED (NOT SEEN); Hypochromasia 1+; Microcytosis SLIGHT; Platelets, Giant FEW PRESENT
[2025-04-22] MEDS: TRELEGY ELLIPTA PO SCH (21:15)
[2025-04-22] MEDS: BUDESONIDE 0.5 MG/2 ML NEB NEB SCH (21:30)
[2025-04-23] MEDS: Fluticasone/Umeclidin/Vilanter [Trelegy Ellipta 200-62.5-25] Blst.W.Dev *PT OWN MED IH SCH (07:15)
[2025-04-23 08:03] LABS: Absolute Lymphocytes (CBC) 0.3 K/uL (0.7-4.9); Hematocrit 25.4 % (36.0-45.0); Hemoglobin 8.6 g/dL (12.0-15.0); MCH 31.3 pg (27.0-35.0); MCHC 33.8 g/dL (32.0-36.0); MCV 92.4 fL (80-100); MPV 8.1 fL (7.6-11.3); Nucleated RBC Absolute Count 0.0 (0-0); Nucleated Red Blood Cells % 0.0 % (0-0); RBC Red Blood Cell Count 2.74 M/uL (3.86-4.86); White Blood Count 3.10 thou/uL (4.3-10.9)
[2025-04-23 08:18] LABS: Anion Gap 7.4 mEq/L (5.0-15.0); BUN Blood Urea Nitrogen 5.0 mg/dL (7-18); Glucose Level 137.0 mg/dL (74-106); Magnesium 1.5 mg/dL (1.6-2.4); Potassium 3.4 mEq/L (3.5-5.1)
[2025-04-23] MEDS ORDERED: TRELEGY ELLIPTA PO SCH (09:00)
[2025-04-23] MEDS ORDERED: BUDESONIDE PO SCH ×2 (09:00)
[2025-04-23] MEDS: Magnesium Sulfate 2gm IVPB 2 G/50 ML BAG IV ONE (12:33)
--- NOTE | 2025-04-23 13:17 | P.PN ---
Subjective Date of Service: 04/23/25 Chief Complaint: GL bleed Subjective: Improving (No acute events overnight. Patient has been referred to inpatient rehab.) Physical Examination - Vital Signs Temperature: 98.5 F Blood Pressure: 137/64 Pulse: 80 Respirations: 18 Pulse Ox (%): 98 - Physical Exam General: Alert, In no apparent distress, Cooperative HEENT: Atraumatic, Normocephalic Respiratory: Clear to auscultation bilaterally, Normal air movement Cardiovascular: No edema, Normal pulses, Regular rate/rhythm, Normal S1 S2, Systolic murmur Neurological: Normal speech Assessment And Plan - Plan Assessment Patient is a 74-year-old female who presented to the hospital with melenic stools. She is status post aortic valve replacement and pacemaker placement recently. She was on Plavix prior to admission. Patient has been transfused a unit of blood for downtrending hemoglobins. Heme intersperse EGD on 04/22 shows gastritis and small hiatal hernia. Biopsies taken Upper GI bleeding Acute blood loss anemia Pancytopenia Antiplatelet use Aortic valve replacement Pacemaker in place Hypokalemia Hypomagnesemia Hypophosphatemia NITISH Hypertension Hyperlipidemia CKD stage II Physical deconditioning Plan: Status post EGD with biopsy EGD with gastritis and antral erosion, small hiatal hernia Continue IV PPI Her hemoglobin has remained more or less stable. Currently at 8.6 Continue electrolyte replacement PT/OT ordered. PT recommends inpatient rehab. Referral started. Hematology consulted for pancytopenia. Hematology wanted peripheral blood smear. Otherwise, patient will need to follow-up outpatient Resume routine home medication if appropriate
[2025-04-23] MEDS: POTASSIUM PHOS IN 0.9 % NACL 15 MMOL/250 ML BAG IV ONE (14:00)
[2025-04-23] MEDS: ACETAMIN/CAFFEINE/BUTALB TAB PO ONE (16:02)
[2025-04-23] MEDS: MORPHINE 4 MG/ML SYR IV ONE (18:12)
[2025-04-23] MEDS: BUDESONIDE 0.5 MG/2 ML NEB NEB SCH (19:00)
--- NOTE | 2025-04-23 20:01 | P.PN ---
Subjective Date of Service: 04/23/25 Chief Complaint: GL bleed Subjective: Improving (No further GI bleeding. Feels better. Tolerating po diet. Hgb stable at 8.6. Going to rehab unit soon.) Review of Systems General: Weakness (Improved. ) Physical Examination - Vital Signs Temperature: 97.8 F Blood Pressure: 120/58 Pulse: 78 Respirations: 18 Pulse Ox (%): 98 - Physical Exam General: Alert, In no apparent distress, Oriented x3, Cooperative HEENT: Atraumatic, Normocephalic, PERRLA, EOMI Neck: Supple Respiratory: Normal air movement Cardiovascular: Normal pulses Gastrointestinal: Soft and benign Neurological: Normal speech, Normal strength at 5/5 x4 extr Assessment And Plan - Current Problems (Diagnosis) (1) Melena Current Visit: Yes Status: Acute (2) Gastritis Current Visit: Yes Status: Acute (3) Anemia Current Visit: Yes Status: Acute - Plan REC: 1) continue PPI bid 2) continue diet 3) call if needed
[2025-04-24 06:47] LABS: Anion Gap 6.6 mEq/L (5.0-15.0); BUN Blood Urea Nitrogen 5.0 mg/dL (7-18); Glucose Level 130.0 mg/dL (74-106); Magnesium 2.0 mg/dL (1.6-2.4); Potassium 3.6 mEq/L (3.5-5.1)
[2025-04-24] MEDS: POTASSIUM CL SA 10 MEQ TAB PO ONE ×2 (14:17→17:36)
[2025-04-24] MEDS: BUDESONIDE 0.5 MG/2 ML NEB NEB SCH (20:07)
[2025-04-25 06:05] LABS: Anion Gap 6.5 mEq/L (5.0-15.0); BUN Blood Urea Nitrogen 7.0 mg/dL (7-18); Glucose Level 139.0 mg/dL (74-106); Potassium 3.5 mEq/L (3.5-5.1)
[2025-04-25] MEDS: POTASSIUM CL SA 10 MEQ TAB PO ONE (09:55)
[2025-04-25] MEDS: NA CHLORIDE 0.9% 250 ML IV ONE (15:57)
[2025-04-25] MEDS: NA CHLORIDE 0.9% 1,000 ML IV SCH (16:00)
[2025-04-25] MEDS: ONDANSETRON 4 MG/2 ML VIAL IV PRN (21:06)
[2025-04-26 03:23] LABS: Absolute Lymphocytes (CBC) 0.4 K/uL (0.7-4.9); Hematocrit 24.2 % (36.0-45.0); Hemoglobin 8.0 g/dL (12.0-15.0); MCH 31.2 pg (27.0-35.0); MCHC 33.2 g/dL (32.0-36.0); MCV 94.0 fL (80-100); MPV 8.0 fL (7.6-11.3); Nucleated RBC Absolute Count 0.0 (0-0); Nucleated Red Blood Cells % 0.1 % (0-0); RBC Red Blood Cell Count 2.57 M/uL (3.86-4.86); White Blood Count 3.10 thou/uL (4.3-10.9)
[2025-04-26 03:54] LABS: Anion Gap 8.3 mEq/L (5.0-15.0); BUN Blood Urea Nitrogen 6.0 mg/dL (7-18); Glucose Level 104.0 mg/dL (74-106)
[2025-04-26 04:38] LABS: Magnesium 1.8 mg/dL (1.6-2.4); Potassium 5.3 mEq/L (3.5-5.1)
[2025-04-26 13:43] LABS: Absolute Lymphocytes (CBC) 0.3 K/uL (0.7-4.9); Hematocrit 27.8 % (36.0-45.0); Hemoglobin 9.0 g/dL (12.0-15.0); MCH 30.7 pg (27.0-35.0); MCHC 32.5 g/dL (32.0-36.0); MCV 94.5 fL (80-100); MPV 7.8 fL (7.6-11.3); Nucleated RBC Absolute Count 0.0 (0-0); Nucleated Red Blood Cells % 0.0 % (0-0); RBC Red Blood Cell Count 2.94 M/uL (3.86-4.86); White Blood Count 3.20 thou/uL (4.3-10.9)
[2025-04-26 13:56] LABS: Anion Gap 5.5 mEq/L (5.0-15.0); BUN Blood Urea Nitrogen 7.0 mg/dL (7-18); Glucose Level 135.0 mg/dL (74-106); Potassium 3.5 mEq/L (3.5-5.1)
[2025-04-27 06:35] VITALS: BMI 35.5
--- NOTE | 2025-04-27 07:43 | RAD REPORT ---
EXAMINATION: ONE VIEW CHEST XR CLINICAL INDICATION: pneumonia TECHNIQUE: Frontal chest projection is submitted. Examination is limited by patient positioning and t echnique. COMPARISON: 04/13/2025 FINDINGS: Mild linear opacity in the left midlung may be atelectasis or scarring. No definitive focal infiltrat e. Trace right pleural effusion. The heart is mildly/moderately enlarged. Valve replacement noted. Dual-lead pacer device is present. IMPRESSION: No acute intrathoracic abnormalities.
[2025-04-27 12:32] VITALS: O2SAT 99
[2025-04-27 12:36] VITALS: BP 120/59; TEMP 97.5
[2025-04-28] MEDS ORDERED: PANTOPRAZOLE 40MG TABLET PO SCH (07:30)
== END 2025-04-27 15:50 | DRG 378 ==
LOC: ER 15:49 → ERHOLD 19:40 → 2ND 20:23
PROVIDERS: ADMIT Family Medicine; ATTEND Hospitalist
PROC: 30233N1 Transfusion of Nonautologous Red Blood Cells into Peripheral Vein, Percutaneous Approach (ICD-10-PCS; 2025-04-21)
PROC: 0DB78ZX Excision of Stomach, Pylorus, Via Natural or Artificial Opening Endoscopic, Diagnostic (ICD-10-PCS; 2025-04-22)
PROC: 0DB68ZX Excision of Stomach, Via Natural or Artificial Opening Endoscopic, Diagnostic (ICD-10-PCS; principal; 2025-04-22 08:30)
DX: K29.01 Acute gastritis with bleeding (principal); C79.51 Secondary malignant neoplasm of bone; D61.818 Other pancytopenia; J96.11 Chronic respiratory failure with hypoxia; D62 Acute posthemorrhagic anemia; N17.9 Acute kidney failure, unspecified; E66.9 Obesity, unspecified; E87.6 Hypokalemia; E83.42 Hypomagnesemia; E78.00 Pure hypercholesterolemia, unspecified; E83.39 Other disorders of phosphorus metabolism; K21.9 Gastro-esophageal reflux disease without esophagitis; K44.9 Diaphragmatic hernia without obstruction or gangrene; I12.9 Hypertensive chronic kidney disease with stage 1 through stage 4 chronic kidney disease, or unspecified chronic kidney disease; N18.2 Chronic kidney disease, stage 2 (mild); E11.22 Type 2 diabetes mellitus with diabetic chronic kidney disease; D63.1 Anemia in chronic kidney disease; Z95.0 Presence of cardiac pacemaker; Z95.2 Presence of prosthetic heart valve; Z85.3 Personal history of malignant neoplasm of breast; Z88.8 Allergy status to other drugs, medicaments and biological substances; Z79.4 Long term (current) use of insulin; Z68.34 Body mass index [BMI] 34.0-34.9, adult; Z79.02 Long term (current) use of antithrombotics/antiplatelets; Z79.899 Other long term (current) drug therapy
CPT/HCPCS: 36415; 71045; 74177; 80048; 80053; 82533; 82607; 82728; 82947; 83540; 83690; 83735; 84100; 85018; 85025; 85044; 86140; 86850; 86900; 86901; 86920; 88305; 88312; 94640; 94760; 96361; 96365; 96375; 97110; 97116; 97161; 97165; 97530; 99285; A4216; J0169; J1200; J2003; J2405; J2470; J2543; J2704; J3475; J7030; J7050; J7626; P9016; Q9967

== ENCOUNTER 2025-04-27 14:08 | Inpatient (IN) | payer OTHER ==
--- OUTSIDE RECORDS SUMMARY | 2025-04-27 16:09 | XMS REPORT | Clinical Summary ---
Author Name Unknown Organization [facility] [place] Address [address] [place] [address] Care Team Providers Care Manager Sql Name Role Phone Unavailable Primary Care Provider [...] AM CDT Anesthesia Event [facility] Main Bldg, 3rd [place] [address] Teri Estrada MD Shaik, Ghouse B, FLOOR FRAMER 02/08/2025 8:39 AM CDT - 02/19/2025 11:31 AM CDT Hospital Encounter MAIN [address] [place] [address] Destiny More MD Taylor, MD Jennifer Truong [...] Home-Health or Physical Therapy 02/08/2025 Travel after 04/27/2024 Social History Tobacco Use Types Packs/Day Years [...] file Travel History Travel Start Travel End [place] 02/06/2025 02/08/2025 Obstetrics History Last Filed Vital [...] CALCIUM TOTAL Routine 02/09/2025 5:25 AM CDT [facility] MISC TEST Routine 02/08/2025 10:59 PM CDT [...] VW Routine 02/08/2025 9:47 AM CDT after 04/27/2024 Results * (ABNORMAL) POC Glucose Screen - Fingerstick (02/19/2025 8:53 AM CDT) Only the most recent of40 resultswithin the time period is included. Glucose Screen 144(H) 70 - 99 mg/dL 02/19/2025 8:56 AM CDT [facility] POC Sample Type Capillary 02/19/2025 8:56 AM CDT [facility] Blood 02/19/2025 8:53 AM CDT 02/19/2025 8:56 AM CDT Narrative [facility] - 02/19/2025 8:56 AM CDT Capillary [...] MD POCT ORDERABLES - DEVICE Final Result [facility] [address] [place] [address] * (ABNORMAL) .CBC (02/19/2025 1:44 AM CDT) Only the most recent of12 resultswithin the time period is included. White Blood Cell 5.8 4.1 - 10.5 K/uL 02/19/2025 2:02 AM CDT [facility] Red Blood Cell 2.64(L) 3.99 - 5.46 M/uL 02/19/2025 2:02 AM CDT [facility] Hemoglobin 7.9(L) 12.2 - 15.3 g/dL 02/19/2025 2:02 AM CDT [facility] Hematocrit 25.7(L) 36.4 - 46.8 % 02/19/2025 2:02 AM CDT [facility] Mean Cell Volume 97 82 - 99 fL 02/19/2025 2:02 AM CDT [facility] Mean Cell Hemoglobin 29.9 26.6 - 33.2 pg 02/19/2025 2:02 AM CDT [facility] Mean Cell Hemoglobin Concentration 30.7(L) 31.1 - 35.2 g/dL 02/19/2025 2:02 AM CDT [facility] RDW-SD 62.0(H) 37.5 - 49.7 fL 02/19/2025 2:02 AM [facility] Red Cell Diameter Width 17.2(H) 11.6 - 15.5 % 02/19/2025 2:02 AM [facility] Platelet 104(L) 160 - 397 K/uL 02/19/2025 2:02 AM [facility] Mean Platelet Volume 10.7 9.1 - 12.6 fL 02/19/2025 2:02 AM [facility] INRBC 0.0 0.0 - 0.1 /100 WBC 02/19/2025 2:02 AM [facility] Comment: The INRBC value reflects the enumeration of nucleated red blood cells contained in a 200uL sample of whole blood analyzed by the instrument. This value may differ from the NRBC value reported in a manual diff, which is based on a 100 cell differential. Neutrophil % 64.1 43.2 - 72.7 % 02/19/2025 2:02 AM [facility] Lymphocyte % 15.9(L) 16.8 - 46.2 % 02/19/2025 2:02 AM [facility] Monocyte % 16.4(H) 5.1 - 12.5 % 02/19/2025 2:02 AM [facility] Eosinophil % 2.4 0.4 - 6.3 % 02/19/2025 2:02 AM [facility] Basophil % 0.7 0.2 - 1.4 % 02/19/2025 2:02 AM [facility] IGRE % 0.5 0.1 - 1.5 % 02/19/2025 2:02 AM [facility] Comment:The IGRE% includes M etamyelocytes, Myelocytes and Promyelocytes. Neutrophil Abs 3.71 1.95 - 7.25 K/uL 02/19/2025 2:02 AM [facility] Lymphocyte Abs 0.92(L) 1.01 - 3.24 K/uL 02/19/2025 2:02 AM [facility] Monocyte Abs 0.95(H) 0.24 - 0.85 K/uL 02/19/2025 2:02 AM CDT [facility] Eosinophil Abs 0.14 0.02 - 0.50 K/uL 02/19/2025 2:02 AM CDT [facility] Basophil Abs 0.04 0.02 - 0.09 K/uL 02/19/2025 2:02 AM CDT [facility] IG Abs 0.03 0.01 - 0.12 K/uL 02/19/2025 2:02 AM CDT [facility] Blood Peripheral blood specimen / Unknown Venipuncture / Unknown 02/19/2025 1:44 AM CDT 02/19/2025 1:54 AM CDT us T Bhatti FLOOR FRAMER LAB BLOOD ORDERABLES Final Resul t [place] [address] [place] [address] * (ABNORMAL) Basic Metabolic Panel- Total Calcium (02/19/2025 1:44 AM CDT) Only the most recent of11 resultswithin the time period is included. eGFR 45(L) >=60 mL/min/1. 73 sq. m 02/19/2025 2:27 AM CDT [facility] Comment: The eGFRcr is calculated with [...] - 10.2 mg/dL 02/19/2025 2:27 AM CDT [facility] Sodium Level 141 136 - 145 mmol/L 02/19/2025 2:27 AM CDT [facility] Potassium Level 4.6(H) 3.4 - 4.5 mmol/L 02/19/2025 2:27 AM CDT [facility] Chloride 102 98 - 107 mmol/L 02/19/2025 2:27 AM CDT [facility] CO2 30(H) 22 - 29 mmol/L 02/19/2025 2:27 AM CDT [facility] Anion Gap 9 4 - 14 mmol/L 02/19/2025 2:27 AM CDT [facility] Creatinine 1.26(H) 0.51 - 0.95 mg/dL 02/19/2025 2:27 AM CDT [facility] BUN 23 6 - 23 mg/dL 02/19/2025 2:27 AM CDT [facility] Glucose Level 129(H) 70 - 99 mg/dL 02/19/2025 2:27 AM CDT [facility] Comment: Effective 02/08/16, the glucose reference intervals have been updated based on [place] [employer] guidelines (Standards of Medical Care [...] 02/19/2025 1:54 AM CDT us T Bhatti FLOOR FRAMER LAB BLOOD ORDERABLES Final Resul t [facility] [address] [place] [address] * Phosphorus Level (02/19/2025 1:44 AM CDT) Only the most recent of12 resultswithin the time period is included. Phosphorus Level 3.3 2.5 - 4.5 mg/dL 02/19/2025 2:27 AM CDT [facility] Blood Peripheral blood specimen / Unknown Venipuncture / Unknown 02/19/2025 1:44 AM CDT 02/19/2025 1:54 AM CDT us T Bhatti FLOOR FRAMER LAB BLOOD ORDERABLES Final Resul t Performing Organization Address [facility] Co de Phone Number [address] [address] * Magnesium Level (02/19/2025 1:44 AM CDT) Only the most recent of12 resultswithin the time period is included. Magnesium Level 2.2 1.6 - 2.6 mg/dL 02/19/2025 2:27 AM CDT [facility] Blood Peripheral blood specimen / Unknown Venipuncture / Unknown 02/19/2025 1:44 AM CDT 02/19/2025 1:54 AM CDT us T Bhatti FLOOR FRAMER LAB BLOOD ORDERABLES Final Resul t Performing Organization Address [facility] de Phone Number [address] [address] * MRI Brain with and without Contrast [...] osteophyte at left C1-C2 lateral mass/facet and C2/[id number] changes are partially seen. Extracranial: Bilateral pseudophakia. [...] D 25OH (02/15/2025 5:30 AM CDT) Pathologist [facility] Vitamin D 25 OH 19(L) 30 - 100 ng/mL 02/15/2025 10:27 PM CDT [facility] Blood Peripheral blood specimen / Unknown Venipuncture / Unknown 02/15/2025 5:30 AM CDT 02/15/2025 5:57 AM CDT Narrative [facility] - 02/15/2025 10:27 PM CDT Reference Range: Deficiency: <=20 ng/mL Insufficiency: 21-29 ng/mL Sufficiency: 30-100 ng/mL Potential toxicity: >100 ng/mL Franky Edward MD LAB BLOOD ORDERABLES Final Resul t [facility] [address] [place] [address] * Albumin Level (02/14/2025 4:08 AM CDT) Albumin Level 3.5 3.5 - 5.2 gm/dL 02/14/2025 11:02 AM CDT [facility] Blood Peripheral blood specimen / Unknown Venipuncture / Unknown 02/14/2025 4:08 AM CDT 02/14/2025 4:31 AM CDT us Franky Edward MD LAB BLOOD ORDERABLES Final Resul t Performing Organization Address [facility] Co de Phone Number [address] [address] * EKG, 12-Lead (Portable) (02/13/2025 4:49 PM CDT) Only the most recent of5 resultswithin the time period is included. us Franky Edward MD ECG ORDERABLES Final Result Performing Organization Address [facility] Co de Phone Number [facility] IECG * (ABNORMAL) NT-Pro BNP (In-House) (02/13/2025 5:50 AM CDT) Only the most recent of3 resultswithin the time period is included. NT-ProBNP 3,712(H) <=450 pg/mL 02/13/2025 11:35 AM CDT [facility] Blood Peripheral blood specimen / Unknown Venipuncture / Unknown 02/13/2025 5:50 AM CDT 02/13/2025 6:17 AM CDT Result [facility] us Franky Edward MD LAB BLOOD ORDERABLES Final Resul t Performing Organization Address [facility] de Phone Number [address] [address] * CT Head without Contrast (02/09/2025 7:02 [...] and potentially actionable. us Franky Edward MD [facility] US ORDERABLES Final Result * Vancomycin Trough Vancomycin trough on 02/09 @ 1230. Nurse please coordinate with lab to draw troughapproximately 11 - 11.5 hours after previous vancomycin dose. Hold vancomycin if trough is greater than 20 and notify provider. Thanks! (02/09/2025 12:16 PM CDT) Vancomycin Trough 16.5 5.0 - 20.0 mcg/mL 02/09/2025 1:04 PM CDT [facility] Vancomycin Trough Dose Time 02/09/2025 1:04 PM CDT [facility] Vancomycin Trough Dose Date 02/09/2025 1:04 PM CDT [facility] Blood Peripheral blood specimen / Unknown Venipuncture / Unknown 02/09/2025 12:16 PM CDT 02/09/2025 12:26 PM CDT Narrative [facility] - 02/09/2025 1:04 PM CDT Toxic Trough Level: >20 mcg/ml Uncomplicated MRSA bacteremia: 10-15mcg/mL MRSA bacteremia or endocarditis and other severe invasive MRSA infections (PJI, HAP, PIECE DYE WORKER infections): 15-20mcg/mL us Franky Edward MD LAB BLOOD ORDERABLES Final Resul t [facility] [address] [place] [address] * Echocardiogram Strain/Speckle Tracking (02/09/2025 11:31 AM [...] and potentially actionable. us Redd Rodriguez MD [facility] US ORDERABLES Final Result * (ABNORMAL) Hepatic Function Panel (02/09/2025 5:25 AM CDT) Bilirubin Total 1.1 0.0 - 1.2 mg/dL 02/09/2025 5:13 PM CDT [facility] Comment:Indocyanine Green (I CG) may cause falsely elevated bilirubin results. Total and direct bilirubin must not be measured from samples containing indocyanine green. False elevation of total bilirubin can be seen in patients with IgG concentrations above 28 g/L. Bilirubin Direct 0.4(H) 0.0 - 0.2 mg/dL 02/09/2025 5:13 PM CDT [facility] Comment:Indocyanine Green (I CG) may cause falsely elevated bilirubin results. Total and direct bilirubin must not be measured from samples containing indocyanine green. Bilirubin Indirect 0.7 0.0 - 1.0 mg/dL 02/09/2025 5:13 PM CDT [facility] Tot Protein 6.1(L) 6.4 - 8.3 gm/dL 02/09/2025 5:13 PM CDT [facility] Alkaline Phosphatase 58 35 - 104 U/L 02/09/2025 5:13 PM CDT [facility] Albumin Level 3.3(L) 3.5 - 5.2 gm/dL 02/09/2025 5:13 PM CDT [facility] AST 17 <=32 U/L 02/09/2025 5:13 PM CDT [facility] ALT 9 <=33 U/L 02/09/2025 5:13 PM CDT [facility] Blood Peripheral blood specimen / Unknown Venipuncture / Unknown 02/09/2025 5:25 AM CDT 02/09/2025 5:46 AM CDT Franky Edward MD LAB BLOOD ORDERABLES Final Resul t Performing Organization Address [facility] de Phone Number [address] [address] * Hemoglobin A1c (02/09/2025 5:25 AM CDT) Hemoglobin A1c 5.3 4.3 - 5.6 % 02/09/2025 10:10 PM CDT [facility] Blood Peripheral blood specimen / Unknown Venipuncture / Unknown 02/09/2025 5:25 AM CDT 02/09/2025 5:46 AM CDT Narrative [facility] - 02/09/2025 10:10 PM CDT HbA1c values >=6.5% are diagnostic of diabetes mellitus. Diagnosis should be confirmed by repeat testing. Therapeutic Action suggested: >8.0% HbA1c; Goal of therapy: <7.0% HbA1c us Franky Edward MD LAB BLOOD ORDERABLES Final Resul t Performing Organization Address [facility] Co de Phone Number [address] [address] * Lipid Panel (02/09/2025 5:25 AM CDT) Cholesterol Total 119 <200 mg/dL 025 10:17 PM CDT [facility] Comment: ATP III Classification of Total Cholesterol - Primary Target of Therapy (in mg/dL): <200 Desirable 200-239 Borderline high >=240 High Triglyceride 95 <150 mg/dL 02/09/2025 10:17 PM CDT [facility] Comment: ATP III Classification of Serum Triglycerides Primary Target of Therapy (in mg/dL): <150 Normal 150-199 Borderline high 200-499 High >=500 Very high Non-fasting triglycerides >200 mg/dL may be followed up with a fasting Lipid Panel. Calculated LDL-C may be falsely decreased when non-fasting triglycerides >200 mg/dL. HDL Cholesterol 54 >=40 mg/dL 10:17 PM CDT [facility] LDL Cholesterol 46 <=100 mg/dL 02/09/2025 10:17 PM CDT [facility] Comment: ATP III Classification of LDL Cholesterol Primary Target of Therapy (in mg/dL): <100 Optimal 100-129 Near optimal/above optimal 130-159 Borderline high 160-189 High >=190 Very high LDL-C is calculated using the Friedewald equation. Is patient fasting? 02/09 10:17 PM CDT [facility] Blood Peripheral blood specimen / Unknown Venipuncture / Unknown 02/09/2025 5:25 AM CDT 02/09/2025 5:46 AM CDT us Franky Edward MD LAB BLOOD ORDERABLES Final Resul t Performing Organization Address City/State/[facility] Co de Phone Number [facility] [address] [place] [address] * Transfuse RBC:Transfusion Date: 02/08/2025 (02/09/2025 12:54 AM CDT) us Destiny More MD BLOOD TRANSFUSION ORDERABLES Fin al Result * Menendez Misc Test (02/08/2025 10:59 PM CDT) Gilberts Mis Test Result See Footnote 02/10/2025 3:38 PM CDT [facility] Comment: Test Result Flag Unit RefValue Chloride, Random, U 129 mmol/L REFERENCE VALUE Random urine chloride may be interpreted in conjunction with serum chloride, using both values to calculate fractional excretion of chloride. Test Performed by: [facility] - [address] [address] [place] Hammerer: Cresencio Mane Ph.D.; CLIA# [id number] Non-Blood (Other) Non-blood Collection / Unknown 02/08/2025 10:59 PM CDT 02/09/2025 11:09 AM CDT us Franky Edward MD LAB BLOOD ORDERABLES Final Resul t [facility] See report for performing lab information. * Sodium Urine (02/08/2025 10:59 PM CDT) Urine Sodium 119 mmol/L 02/09/2025 12:00 AM CDT [facility] Comment:Normal range not william ilable for collections less than 24 hours in duration. Urine Voided urine specimen / Unknown Non-blood Collection / Unknown 02/08/2025 10:59 PM CDT 02/08/2025 11:33 PM CDT us Redd Rodriguez MD URINE ORDERABLES Final Result Performing Organization Address [facility] [place] [address] * Potassium Urine (02/08/2025 10:59 PM CDT) Urine Potassium 37 mmol/L 12:00 AM CDT [facility] Comment:Normal range not william ilable for collections less than 24 hours in duration. Urine Voided urine specimen / Unknown Non-blood Collection / Unknown 02/08/2025 10:59 PM CDT 02/08/2025 11:33 PM CDT us Redd Rodriguez MD URINE ORDERABLES Final Result Performing Organization Address [facility]/ZIP Co de Phone Number [address] [address] * Creatinine Urine (02/08/2025 10:59 PM CDT) Pathologist [facility] Urine Creatinine 103.9 29.0 - 226.0 mg/dL 02/09/2025 12:00 AM CDT [facility] Urine Voided urine specimen / Unknown Non-blood Collection / Unknown 02/08/2025 10:59 PM CDT 02/08/2025 11:33 PM CDT Narrative [facility] - 02/09/2025 12:00 AM CDT The reference range listed is for first morning urine collection. Redd Rodriguez MD URINE ORDERABLES Final Result Performing Organization Address City/[facility]/ZIP Co de Phone Number [address] [address] * MRSA Screening Culture (02/08/2025 4:11 PM CDT) [facility] MRSA Screening Culture No Methicillin-Resist ant Staphylococcus aureus isolated. 02/10/2025 12:45 PM CDT [facility] Swab (Nares, Left) Non-blood Collection / Unknown 02/08/2025 4:11 PM CDT 02/08/2025 4:16 PM CDT Narrative [facility] - 02/10/2025 12:45 PM CDT Testing is performed using PBP2a antigen detection and cefoxitin screen on isolated S. aureus colonies. This methodology may not detect uncommon mechanisms of methicillin resistance in S. aureus. Redd Rodriguez MD MICROBIOLOGY - GENERAL ORDERABLE S Final Result [address] [address] * (ABNORMAL) Urinalysis w/Reflex Culture Grouper (02/08/2025 3:43 PM CDT) Pathologist [facility] Urine Appearance Clear Clear 02/09/20 4:07 PM CDT [facility] Comment:This result was prev iously suppressed from the chart. Urine Color Straw Colorless, Straw, Yellow, Dark Yellow, Straw-Yellow 02/08/2025 4:07 PM CDT [facility] Comment:This result was prev iously suppressed from the chart. Urine Specific [place] 1.016 1.003 - 1.035 02/08/2025 4:07 PM CDT [facility] Comment:This result was prev iously suppressed from the chart. Urine pH 6.0 5.0 - 8.0 02/08/2025 4:07 PM CDT [facility] Comment:This result was prev iously suppressed from the chart. Urine Glucose Negative Negative mg/dL 02/08/2025 4:07 PM CDT [facility] Comment:This result was prev iously suppressed from the chart. Urine Ketones Negative Negative mg/dL 02/08/2025 4:07 PM CDT [facility] Comment:This result was prev iously suppressed from the chart. Urine Blood Small(A) Negative 02/08/2025 4:07 PM CDT [facility] Comment:This result was prev iously suppressed from the chart. Urine Protein Negative Negative mg/dL 02/08/2025 4:07 PM CDT [facility] Comment:This result was prev iously suppressed from the chart. Urine Bilirubin Negative Negative 4:07 PM CDT [facility] Urine Urobilinogen Negative Negative 02/08/2025 4:07 PM CDT [facility] Urine Nitrite Negative Negative 02/08/2025 4:07 PM CDT [facility] Comment:This result was prev iously suppressed from the chart. Urine Leukocyte Esterase Large(A) Negative 02/08/2025 4:07 PM CDT [facility] Comment:This result was prev iously suppressed from the chart. Urine Mucous Trace Not Seen, Trace /HPF 02/08/2025 4:07 PM CDT [facility] Comment:This result was prev iously suppressed from the chart. Urine Bacteria Not Seen Not Seen /HPF 02/08/2025 4:07 PM CDT [facility] Comment:This result was prev iously suppressed from the chart. Urine Squamous Epithelial Cells OCC Not Seen, OCC, Rare /HPF 02/08/2025 4:07 PM CDT [facility] Comment:This result was prev iously suppressed from the chart. UA Transitional Epi OCC(A) Not Seen, <1 /HPF 02/08/2025 4:07 PM CDT [facility] Comment:This result was prev iously suppressed from the chart. Urine WBC 33(H) <=2 /HPF 02/08/2025 4:07 PM CDT [facility] Urine RBC 2 <=2 /HPF 02/08/2025 4:07 PM CDT [facility] Urine (Urine Clean Catch) Non-blood Collection / Unknown 02/08/2025 3:43 PM CDT 02/08/2025 3:49 PM CDT Narrative [facility] - 02/08/2025 4:07 PM CDT Some reporting parameters within the Urinalysis test have changed due to the implementation of new instrumentation in the [facility], allowing greater sensitivity of measurement. Urinalysis results reported by the [facility] using existing instrumentation, as well as Urinalysis testing performed manually or by back-up methodology at the main [place], will remain relatively unchanged. New reporting parameters and units will now be reported for all campuses. us Destiny More MD URINE ORDERABLES Final Result Performing Organization Address City/[facility]/ZIP Co de Phone Number [address] [address] * Urine Culture (02/08/2025 3:43 PM CDT) Pathologist [facility] Urine Culture Normal site leon present. Generally of low significance. Correlate with clinical data and culture history. 02/10/2025 1:49 PM CDT [facility] Urine (Urine Clean Catch) Non-blood Collection / Unknown 02/08/2025 3:43 PM CDT 02/08/2025 3:49 PM CDT Destiny More MD MICROBIOLOGY - GENERAL ORDERABLE S Final Result [address] [address] * Confirm ABORh (02/08/2025 10:54 AM CDT) ABORh Confirm A POS 02/08/2025 10:54 AM CDT [facility] Blood Peripheral blood specimen / Unknown Venipuncture / Unknown 02/08/2025 10:54 AM CDT 02/08/2025 11:20 AM CDT Destiny More MD BLOOD BANK TEST ORDERABLES Final Result [facility] [address] [place] [address], [place] * Type and Screen (02/08/2025 10:53 AM CDT) ABORh A POS 02/08/2025 10:23 AM CDT [facility] ABSC Negative 02/08/2025 10:23 AM CDT [facility] Clot Expiration 02/11/2025 23:59 02/08/2025 10:23 AM CDT [facility] Historical Record Check No History 02/08/2025 10:23 AM CDT [facility] Blood Peripheral blood specimen / Unknown Venipuncture / Unknown 02/08/2025 10:53 AM CDT 02/08/2025 11:20 AM CDT Destiny More MD BLOOD BANK TEST ORDERABLES Final Result [facility] [address] [place] [address], [place] * Prepare RBC:Transfusion Date: 02/08/2025; Transfusion Indications: Symptomatic Anemia- patient reports symptoms of fatigue, weakness, shortness of breath, dizziness or lightheadedness; accc, 1 Units (02/08/2025 10:23 AM CDT) Product Code [id number] [facility] Product Code Text Red Blood Cells [facility] QTY Ordered 1 [facility] Dispense Status Transfused [facility] Unit Expiration [id number] [facility] Unit Number [id number] [facility] Unit Blood Type A- [facility] Bag Volume 383 [facility] XM Interpretation Compatible U T [facility] Unit Blood Type Barcode 0600 [facility] PRBC Product Ready For Piano Mover B2 Blood Bank [facility] RBC Product Status 1 RBC approved [facility] Comment:Order Form 03 when r antonella for product issue. Blood us Destiny More MD BLOOD BANK PRODUCT ORDERABLES Fi nal Result [facility] [place] [facility] [id number] [place] [address], * Respiratory Multiplex PCR Panel, Nasopharyngeal Swab (02/08/2025 10:07 AM CDT) Adenovirus Not Detected Not Detected 02/08/2025 12:02 PM CDT [facility] Coronavirus 229E Not Detected Not Detected 02/08/2025 12:02 PM CDT [facility] Coronavirus HKU1 Not Detected Not Detected 02/08/2025 12:02 PM CDT [facility] Coronavirus NL63 Not Detected Not Detected 02/08/2025 12:02 PM CDT [facility] Coronavirus OC43 Not Detected Not Detected 02/08/2025 12:02 PM CDT [facility] COVID-19 (SARS-CoV-2) Not Detected Not Detected 02/08/2025 12:02 PM CDT [facility] Human Metapneumovirus Not Detected Not Detected 02/08/2025 12:02 PM CDT [facility] Human Rhinovirus/Enterov irus Not Detected Not Detected 02/08/2025 12:02 PM CDT [facility] Influenza A Not Detected Not Detected 02/08/2025 12:02 PM CDT [facility] Influenza A H1 Not Detected Not Detected 02/08/2025 12:02 PM CDT [facility] Influenza A H1 2009 Not Detected Not Detected 02/08/2025 12:02 PM CDT [facility] Influenza A H3 Not Detected Not Detected 02/08/2025 12:02 PM CDT [facility] Influenza B Not Detected Not Detected 02/08/2025 12:02 PM CDT [facility] Parainfluenza Virus 1 Not Detected Not Detected 02/08/2025 12:02 PM CDT [facility] Parainfluenza Virus 2 Not Detected Not Detected 02/08/2025 12:02 PM CDT [facility] Parainfluenza Virus 3 Not Detected Not Detected 02/08/2025 12:02 PM CDT [facility] Parainfluenza Virus 4 Not Detected Not Detected 02/08/2025 12:02 PM CDT [facility] Respiratory Syncytial Virus Not Detected Not Detected 02/08/2025 12:02 PM CDT [facility] Bordetella parapertussis Not Detected Not Detected 02/08/2025 12:02 PM CDT [facility] Bordetella pertussis Not Detected Not Detected 02/08/2025 12:02 PM CDT [facility] Chlamydophila pneumoniae Not Detected Not Detected 02/08/2025 12:02 PM CDT [facility] Mycoplasma pneumoniae Not Detected Not Detected 02/08/2025 12:02 PM CDT [facility] Swab Nasopharyngeal structure / Unknown Non-blood Collection / Unknown 02/08/2025 10:07 AM CDT 02/08/2025 10:13 AM CDT [facility] - 02/08/2025 12:02 PM CDT The assay is a qualitative multiplex PCR assay to aid in the diagnosis of respiratory pathogens through simultaneous qualitative detection and identification of multiple pathogens directly from nasopharyngeal swabs (PROPELLER MECHANIC) from individuals with respiratory symptoms. Testing is performed using the Mytopia FilmArray Respiratory Panel 2.1 (RP2.1) on the Mytopia® Gynesonicsch® System. The following organisms are identified using the OptiMedicaFire RP 2.1 Panel: Adenovirus, Human Coronavirus (229E, [...] verified by the microbiology laboratory at the [facility] (CLIA Accreditation # [id number] and CAP Accreditation # [id number]). Results must be interpreted within the context of all relevant clinical and laboratory findings. Assay should not be used for monitoring response to therapy. us Destiny More MD MICROBIOLOGY - GENERAL ORDERABLE S Final Result [id number] [place] [address] * (ABNORMAL) Comprehensive Metabolic Panel (02/08/2025 10:06 AM CDT) Bilirubin Total 0.4 0.0 - 1.2 mg/dL 02/08/2025 11:02 AM CDT [facility] Comment:Indocyanine Green (I CG) may cause falsely elevated bilirubin results. Total and direct bilirubin must not be measured from samples containing indocyanine green. False elevation of total bilirubin can be seen in patients with IgG concentrations above 28 g/L. eGFR 44(L) >=60 mL/min/1. 73 sq. m 02/08/2025 11:02 AM [facility] Comment: The eGFRcr is calculated with the [...] 6.4 - 8.3 gm/dL 02/08/2025 11:02 AM [facility] Calcium Level Total 9.1 8.2 - 10.2 mg/dL 02/08/2025 11:02 AM [facility] Alkaline Phosphatase 65 35 - 104 U/L 02/08/2025 11:02 AM [facility] Albumin Level 3.4(L) 3.5 - 5.2 gm/dL 02/08/2025 11:02 AM [facility] AST 14 <=32 U/L 02/08/2025 11:02 AM [facility] ALT 10 <=33 U/L 02/08/2025 11:02 AM [facility] Sodium Level 142 136 - 145 mmol/L 02/08/2025 11:02 AM [facility] Potassium Level 4.2 3.4 - 4.5 mmol/L 02/08/2025 11:02 AM [facility] Chloride 109(H) 98 - 107 mmol/L 02/08/2025 11:02 AM [facility] CO2 23 22 - 29 mmol/L 02/08/2025 11:02 AM CDT [facility] Anion Gap 10 4 - 14 mmol/L 02/08/2025 11:02 AM CDT [facility] Creatinine 1.27(H) 0.51 - 0.95 mg/dL 02/08/2025 11:02 AM CDT [facility] BUN 13 6 - 23 mg/dL 02/08/2025 11:02 AM CDT [facility] Glucose Level 137(H) 70 - 99 mg/dL 02/08/2025 11:02 AM CDT [facility] Comment: Effective 02/08/16, the glucose reference intervals have been updated based on [place] [employer] guidelines (Standards of Medical Care [...] MD LAB BLOOD ORDERABLES Final Resul t [id number] [place] [address] * (ABNORMAL) Cardiac Panel (02/08/2025 10:06 AM CDT) Creatine Kinase 146 26 - 192 U/L 02/08/2025 10:43 AM CDT [facility] CKMB 2.6 <=5.3 ng/mL 02/08/2025 10:43 AM CDT [facility] Troponin T 28(H) <=19 ng/L 02/08/2025 10:43 AM CDT [facility] Comment: Reference range established for age [...] MD LAB BLOOD ORDERABLES Final Resul t [facility] [address] [place] [address] * (ABNORMAL) Differential (02/08/2025 10:06 AM CDT) Total Cells 100 02/08/2025 10:42 AM CDT [facility] Manual Neutrophil % 82.0(H) 43.2 - 72.7 % 02/08/2025 10:42 AM CDT [facility] Comment:The Neutrophil count includes Bands. Manual Lymphocyte % 9.0(L) 16.8 - 46.2 % 02/08/2025 10:42 AM CDT [facility] Manual Monocyte % 6.0 5.1 - 12.5 % 02/08/2025 10:42 AM CDT [facility] Manual Eosinophil % 3.0 0.4 - 6.3 % 02/08/2025 10:42 AM CDT [facility] Metamyelocyte % 10:42 AM CDT [facility] Comment:The Metamyelocyte co unt includes Myelocytes. Manual Neutrophil Abs 2.46 1.95 - 7.25 K/uL 02/08/2025 10:42 AM CDT [facility] Manual Lymphocyte Abs 0.27(L) 1.01 - 3.24 K/uL 02/08/2025 10:42 AM CDT [facility] Manual Monocyte Abs 0.18(L) 0.24 - 0.85 K/uL 02/08/2025 10:42 AM CDT [facility] Manual Eosinophil Abs 0.09 0.02 - 0.50 K/uL 02/08/2025 10:42 AM CDT [facility] RBC Morphology PRESENT 02/08/2025 10:42 AM CDT [facility] PLT Morph Normal Normal 02/08/2025 10:42 AM CDT [facility] Anisocytosis Present(A) (none) 02/08/2025 10:42 AM CDT [facility] Ovalocyte Present(A) (none) 02/08/2025 10:42 AM CDT [facility] Blood Peripheral blood specimen / Unknown Venipuncture / Unknown 02/08/2025 10:06 AM CDT 02/08/2025 10:13 AM CDT us Destiny More MD LAB BLOOD ORDERABLES Final Resul t Performing Organization Address City/State/[facility] Co de Phone Number [facility] [address] [place] [address] * X-ray Chest 1 View (02/08/2025 9:47 [...] DIAGNOSTIC IMAGING ORDERABLE S Final Result after 04/27/2024 Insurance MEDICARE PART A AND B [facility] MEDICARE PART A AND B [facility] Advance Directives * Full Code (Latest Code Status on File) Date Activated Date Inactivated Comments 02/08/2025 8:34 AM Update based o n Advanced Directive Documentation * Full Code Date Activated Date Inactivated Comments 02/08/2025 8:32 AM 02/08/2025 8:32 AM Update based on Advanced Directive Documentation
[2025-04-27] MEDS: BUDESONIDE 0.5 MG/2 ML NEB NEB SCH (19:50)
[2025-04-27] MEDS: INSULIN REGULAR (HUMAN) 100 UNIT/ML SQ SCH (20:08)
[2025-04-27] MEDS: TRAZODONE 50 MG TABLET PO PRN (20:09)
[2025-04-27] MEDS: ATORVASTATIN 20 MG TAB PO SCH (20:09)
[2025-04-27] MEDS ORDERED: OLANZapine 2.5 MG TAB PO SCH (21:00)
[2025-04-28] MEDS: PANTOPRAZOLE 40MG TABLET PO SCH (06:55)
[2025-04-28] MEDS: LACTULOSE 20 GM/30 ML UCUP PO SCH (08:26)
[2025-04-28] MEDS: OLANZapine 2.5 MG TAB PO SCH (08:27)
[2025-04-28] MEDS: CLOPIDOGREL 75 MG TABLET PO SCH (08:27)
[2025-04-28] MEDS: AMLODIPINE 10 MG TAB PO SCH (08:27)
[2025-04-28] MEDS: MIRTAZAPINE 15 MG TAB PO SCH (08:27)
[2025-04-28] MEDS: MONTELUKAST 10 MG TAB PO SCH (08:27)
[2025-04-28 08:40] LABS: Absolute Lymphocytes (CBC) 0.4 K/uL (0.7-4.9); Hematocrit 27.2 % (36.0-45.0); Hemoglobin 8.9 g/dL (12.0-15.0); MCH 30.7 pg (27.0-35.0); MCHC 32.7 g/dL (32.0-36.0); MCV 94.0 fL (80-100); MPV 8.1 fL (7.6-11.3); Nucleated RBC Absolute Count 0.0 (0-0); Nucleated Red Blood Cells % 0.1 % (0-0); RBC Red Blood Cell Count 2.89 M/uL (3.86-4.86); White Blood Count 3.90 thou/uL (4.3-10.9)
[2025-04-28 09:01] LABS: Albumin 1.9 g/dL (3.4-5.0); Anion Gap 6.5 mEq/L (5.0-15.0); BUN Blood Urea Nitrogen 7.0 mg/dL (7-18); Glucose Level 115.0 mg/dL (74-106); Potassium 3.5 mEq/L (3.5-5.1); Prealbumin 4.6 mg/dL (20-40)
[2025-04-28] MEDS: ALBUMIN HUMAN 25% 100 ML IV ONE (16:44)
[2025-04-28] MEDS: ENSURE HIGH PROTEIN 237 ML CAN PO SCH (20:28)
--- NOTE | 2025-04-29 00:33 | HP ---
Date of Admission: 04/27/2025 Time: 1:00 p.m. Chief Complaint: "I was bleeding. I need to get stronger." History Of Present Illness: Ms. Newsome is a 74-year-old patient with diabetes mellitus type 2, [employer] D, chronic respiratory failure with hypoxia, aortic valve replacement who developed nausea, vomiting for about 3 days. She became generally weak and was evaluated in hospital. Evaluation revealed an u pper GI bleed with acute blood loss anemia, pancytopenia, hypokalemia, hypomagnesemia, hypophosphatem ia with acute renal injury. In addition, her comorbidities of hypertension, dyslipidemia, stage 2 ki dney disease, and deconditioning identified and addressed. As noted, history of aortic valve replace ment 3 weeks prior to her worsening episode. She underwent an EGD with biopsy did reveal gastritis with antral erosion and a small hiatal hernia. She did receive IV proton pump inhibitor, electrolyte replacement, and was evaluated by Physical and Occupational Therapy Service as she had other comorbid medical conditions addressed. During hospita lization, she became more fatigued. She had lack of endurance, decreased physical functioning, persi stent anemia, ongoing nausea, and low blood pressure with orthostatic hypotension. She had also more dehydration issues, elevated creatinine as well. Prior to her recent hospitalization, she has completed the rehab course and was functioning independe ntly. She was able to ambulate over 300 feet with a Rollator and a single-point cane independently a nd did all activities of daily living and transfers independently. At this point due to significant debility and her comorbid conditions, she is now a good candidate for aggressive inpatient rehabilita tion to help her to return to her prior level of functioning and reduce the risk of rehospitalization . Rehabilitation done at home or in a shelter facility, she is not likely to do very well an d may require extended period of time to improve and return to her prior level of functioning. Past Medical History: As noted above. Past Surgical History: Pacemaker placement, aortic valve replacement. Allergies: METFORMIN. Medications: Tylenol 650 mg every 4 hours as needed, Norvasc 10 mg daily, Lipitor 20 mg at bedtime, Pulmicort 0.5 mg twice daily nebulizer, Plavix 75 mg daily, ferrous sulfate 325 mg daily. She has in sulin sliding scale, mild; lactulose 10 g daily; Robaxin 500 mg at bedtime; midodrine 5 mg twice neal y, morning and noon; Remeron 15 mg daily; Singulair 10 mg daily; Hemocyte Plus 1 tablet with breakfas t; Ensure Enlive 237 mL twice daily; Zyprexa 2.5 mg twice daily; Zofran 4 mg every 4 hours; Protonix 40 mg daily; tramadol 50 mg every 6 hours as needed; and trazodone 50 mg at bedtime. Laboratory Studies: White blood cell count is 3.9, hemoglobin 8.9, platelets 110. Sodium 143, potas sium 3.5, chloride 107, carbon dioxide 32, BUN 7, creatinine 1.25, glucose ranged from 115 to 137. H emoglobin A1c 5.6. Calcium 8.7. Magnesium 1.9. Prealbumin very low at 4.6. X-ray/imaging: CT scan of the abdomen and pelvis shows no acute findings in the abdomen and pelvis. There is some circumferential thickening of anus with reflex inflammatory changes. There is loculat ed, mildly enhanced small left pleural effusion that is likely chronic. Family History: Noncontributory. Social History: No alcohol, tobacco, or IV drug use. She was independent, living at home, and did a ll activities as noted above without any difficulty. Current Level Of Functioning: Currently, she is setup assistance level for eating and grooming, maxi mum assistance for bathing, moderate assistance for upper body dressing, maximum assist of the lower body dressing and donning and doffing footwear. Toilet transfers, moderate assistance. Wheelchair t ransfer and bed transfer, moderate assistance. Ambulation 100 feet with moderate assistance. Physical Examination: Vital Signs: Blood pressure 129/57, which is lying and pulse 80, respiratory rate 18, temperature 98 .2, oxygen saturation 100%. Weight 227 pounds, height 5 feet 7 inches, BMI 35.6. General: Ms. Newsome is resting comfortably in a chair beside bed. Blood pressure is being taken f or orthostatic purposes. HEENT: She appears normocephalic, atraumatic. Sclerae anicteric. Oropharynx moist. Neck: Supple. Chest: Clear. Heart: Regular. Extremities: Show no significant clubbing, cyanosis. Edema trace in the lower extremities. Neurological: Diffuse weakness proximally and distally and some truncal weakness as well with focal neurological deficits noted. Rehab And Medical Assessment And Plan: Ms. Newsome is a 74-year-old patient admitted to the [facility] rehabilitation unit with impairment category 20, miscellaneous. Impairment group code is 16sy. Etiologic diagnosis: Upper GI bleed. In addition, she has mild diabetes mellitus in addition to COPD, chronic respiratory failure, hypotension and orthostatic worsening, aortic valve replacemen t. She has cardiac pacemaker placement. Plan will be to have physical, occupational, and if need be speech therapy for 3.5 hours, 5 of 7 days. She has a list of comorbid condition medications, which will be continued and she does have Plavix 75 mg daily and we may consider Eliquis 2.5 mg twice daily for DVT prophylaxis; however, given the patient's recent bleed, we will use SCDs at this point to mi nimize the risk of excessive bleeding, Lipitor for dyslipidemia, Pulmicort for shortness of breath, f errous sulfate for iron deficiency anemia. She has significantly low hemoglobin and hematocrit and l ow protein. She will have albumin 25 g given. Tramadol for pain, Desyrel for sleep, Protonix for re flux and reducing the risk of additional GI bleed. She has Hemocyte Plus on board and Tylenol for pa in. Comorbidities That Are Impacting Rehabilitation: First big issue is the recent GI bleed and to reduc e the risk of additional one. She has Protonix on board and will have a more bland fiber diet to red uce the risk of worsening GI symptoms. She does have in addition the cardiac reasons for needing ant icoagulation balanced with the risk of bleeding, so Plavix to continue without Eliquis with SCDs for DVT prophylaxis. Rehab Specific Plan: Ms. Newsome will have physical, occupational, and if need be speech therapy fo r 3.5 hours, 5 of 7 days to improve her ability to transfer from the bed to a chair, to a wheelchair, and a rolling walker to go on and off the toilet, in and out of shower, to don and doff upper and lo wer body clothing and to don and doff shoes. In addition performing all activities of daily living a nd cognitive functioning independently. She did work with all therapists. Ms. Newsome has a good understanding of the process of admission to the inpatient rehabilitation [facility], how she will benefit from physical, occupational, and if need be speech therapy. She will have 24 hours a day, 7 days a week skilled rehabilitation nursing, daily physician evaluation and management , and psychologist social evaluation and management for discharge planning, home equipment, and to contin ue therapy after her discharge. Barriers To Discharge: Given her recent GI bleed, there is a possibility that she will have an exten ded stay required if there is an additional GI bleed and the GI doctors will be consulted or Dr. Antelmo keyes's service. However, she continues do well and will be able to return towards her level of indepe ndence as she is just debilitated without any broken bones or signs of stroke or any other focal neur ologic deficits. Length Of Stay: About 10-12 days. Disposition: She is expected to be able to go back home and to continue therapy via Home Health. Prognosis: Good. Code Status: Full code. Rehab Specific Goals: 1. Become independent with upper and lower body dressing and donning and doffing footwear. 2. Independently perform all activities of daily living. 3. Independently ambulate 250 feet with a rolling walker, mobilize a wheelchair 250 feet and go up an d down 10 steps with bilateral handrails. 4. Independently pay attention to all safety awareness issues and reduce risk of falling. The above goals were reviewed with Ms. Newsome and she is in agreement. By signing this document, I acknowledge I personally performed a full physical examination on Ms. Anthony lmniranjan no later than 24 hours after her admission to the inpatient rehabilitation unit and determined that she is able to tolerate the above course of treatment at an intensive level for reasonable perio d of time. A detailed individualized plan of care for her will be completed by hospital day 4 based on preadmission screen, history and physica l, and therapy evaluations. YAMILKA/NIKA Voice ID: [id number]
[2025-04-29] MEDS: MIDODRINE HCL 5 MG TABLET PO SCH (08:28)
[2025-04-29] MEDS: FE SULF/FA/VIT B COMP & C TAB PO SCH (08:29)
[2025-04-29] MEDS: FERROUS SULFATE 325 MG TAB PO SCH (08:29)
[2025-04-29] MEDS: ONDANSETRON 4 MG (ODT) TAB PO PRN (09:08)
[2025-04-29] MEDS: NA CHLORIDE 0.9% 1,000 ML IV SCH (14:13)
[2025-04-29] MEDS: DOCUSATE NA/SENNA CONC 1 TAB PO SCH (19:24)
[2025-04-29] MEDS: AMLODIPINE 10 MG TAB PO SCH (19:24)
[2025-04-29] MEDS: DULOXETINE 30 MG CAP PO SCH (19:24)
--- NOTE | 2025-04-29 20:53 | PN ---
Date of Progress Note: 04/29/2025 Time: 1 p.m. Subjective: Ms. Newsome is resting well in bed in between therapy sessions. She has no complaints. No deficits. Very happy so far with her progress made. No issues of shortness of breath. No othe r complaints. She is admitted with an upper GI bleed. No evidence of any ongoing bleed and she has Hemocyte Plus. She has protein supplementation on board. Objective: No fevers, chills, nausea, vomiting, myalgias, arthralgias, or rash. Physical Examination: Vital Signs: Blood pressure 141/92, pulse of 73, respiratory rate 16, temperature 97.1, oxygen satur ation 97%. Weight 227 pounds. Height 5 feet 7 inches, BMI 35.6. General: Ms. Newsome is resting well. She has no focal deficits. Chest: Good air movement. Abdomen: Soft. Extremities: No clubbing, cyanosis, or edema. Medications: Tylenol 650 mg every 4 hours as needed, Norvasc 10 mg at bedtime, Lipitor 20 mg at bedt kelly, Pulmicort 0.5 mg nebulizer twice daily, Plavix 75 mg daily, duloxetine 30 mg at bedtime, ferrous sulfate 325 mg daily, lactulose 10 mg daily, methocarbamol 500 mg at bedtime, midodrine. She did sandoval ve lower blood pressures, orthostasis is her big factor and she actually has an increase in midodrine from 5-10 mg in the morning and 5 mg at noon. She has Remeron 15 mg at night for insomnia. She has Singulair 10 mg daily for allergies. She has Hemocyte Plus 1 tablet with breakfast. Ensure Enlive 237 mL twice daily, Zyprexa 2.5 mg daily, Zofran 4 mg every 4 hours as needed, Protonix 40 mg daily, Senokot-S 2 at bedtime. She is receiving sodium chloride at 100 cc an hour for the orthostatic hypot ension, tramadol 50 mg q.8 hours, and Desyrel 50 mg at bedtime for insomnia. It is noted that earlie r in the day when the patient is working with therapy, she did have some significant orthostasis and the midodrine is adjusted to help with that. Laboratory Studies: Her white blood cell count 3.9, hemoglobin 8.9, platelets 110. Glucose ranged f rom 100-171. X-ray/imaging: No new x-rays or imaging. Progress Made With Physical, Occupational, And Speech Therapy: With her physical therapy, she was ab le to complete bed mobility with moderate assistance, [id number] transfer and standing transfers w ith minimum assistance. Wheelchair mobilization 100 feet twice with contact guard assistance and als o another 150 feet with contact guard assistance. With occupational therapy, she was independent for bed mobility and she was able to transfer from recline to sitting position out of bed with contact g uard assistance and she did upper body strengthening exercises very well. She did have a drop in blo od pressure to 90/44 while she was on therapy. Assessment And Plan: Ms. Newsome is a 74-year-old patient in rehabilitation unit with upper GI blee d. She still has decreased mobility, decreased physical functioning with the anemia, which is presen t. She has orthostatic hypotension and she has of course the GI bleed and she is on sequential compr ession devices for DVT prophylaxis. She has Lipitor for dyslipidemia, Norvasc for hypertension, whic h should be held and was given at bedtime until the daytime. She has duloxetine for neuropathic pain and depression and methocarbamol for muscle spasms, which has been scheduled at bedtime, and she has midodrine 10 in morning and 5 at noon, Hemocyte Plus on board. Plan will be to continue with physic al and occupational therapy 3 hours a day, 5 of 7 days and continue with her list of medications addr essing comorbid conditions, which have been noted. The goal is for her to go home to continue therap y via Home Health. Follow up with primary care physician as scheduled. YAMILKA/INKA Voice ID: [id number] Report ID: [id number]
[2025-04-30] MEDS: ACETAMINOPHEN 325 MG TABLET PO PRN (00:04)
[2025-04-30] MEDS: MIDODRINE HCL 5 MG TABLET PO SCH ×2 (07:00→12:33)
[2025-04-30 07:40] LABS: Absolute Lymphocytes (CBC) 0.5 K/uL (0.7-4.9); Hematocrit 26.2 % (36.0-45.0); Hemoglobin 8.5 g/dL (12.0-15.0); MCH 30.6 pg (27.0-35.0); MCHC 32.6 g/dL (32.0-36.0); MCV 93.8 fL (80-100); MPV 8.4 fL (7.6-11.3); Nucleated RBC Absolute Count 0.0 (0-0); Nucleated Red Blood Cells % 0.0 % (0-0); RBC Red Blood Cell Count 2.79 M/uL (3.86-4.86); White Blood Count 3.70 thou/uL (4.3-10.9)
[2025-04-30 07:47] LABS: Albumin 2.0 g/dL (3.4-5.0); Anion Gap 6.9 mEq/L (5.0-15.0); BUN Blood Urea Nitrogen 8.0 mg/dL (7-18); Glucose Level 109.0 mg/dL (74-106); Potassium 2.9 mEq/L (3.5-5.1); Prealbumin 5.6 mg/dL (20-40)
--- NOTE | 2025-04-30 07:48 | RAD REPORT ---
Exam:Abdomen 1 View (KUB) Clinical history: Abdominal pain FINDINGS: Air is present throughout loops of small bowel right abdomen. Small amount of air in small bowel. Thi s is not specific bowel gas pattern. Mild to moderate amount of stool throughout the colon No significant calcification is displayed.
[2025-04-30] MEDS: INSULIN REGULAR (HUMAN) 100 UNIT/ML SQ SCH (08:00)
[2025-04-30] MEDS: POTASSIUM CL SA 10 MEQ TAB PO ONE (09:51)
[2025-04-30 11:31] LABS: Sqamous Epithelial <5 /HPF (None Seen); Urine Culture Reflex Order REFLEXED; Urine Microscopic Reflex YN ORDER UMIC; Urine Yeast (Budding) Trace /HPF (None Seen)
--- NOTE | 2025-04-30 13:59 | P.RH.PN ---
Estimated Length of Stay: 11 Expected Discharge Date: 05/11/25 Discharge Disposition Plan: Home Family Support: Yes [facility] Goal: Mobility, Transfers, Self Care Vital Signs: Last Vital Signs Temp 97.7 F 04/30/25 07:30 Pulse 72 04/30/25 07:30 Resp 18 04/30/25 07:30 BP 119/58 L 04/30/25 07:30 Pulse Ox 96 04/30/25 07:30 Laboratory: Laboratory Last Values WBC 3.70 thou/uL (4.3-10.9) L 04/30/25 06:55 RBC 2.79 M/uL (3.86-4.86) L 04/30/25 06:55 Hgb 8.5 g/dL (12.0-15.0) L 04/30/25 06:55 Hct 26.2 % (36.0-45.0) L 04/30/25 06:55 MCV 93.8 fL (80-100) 04/30/25 06:55 MCH 30.6 pg (27.0-35.0) 04/30/25 06:55 MCHC 32.6 g/dL (32.0-36.0) 04/30/25 06:55 RDW 17.6 % (12.1-15.2) H 04/30/25 06:55 Plt Count 102 thou/uL (152-406) L 04/30/25 06:55 MPV 8.4 fL (7.6-11.3) 04/30/25 06:55 Neutrophils % 65.9 % (41.7-73.7) 04/30/25 06:55 Lymphocytes % 14.3 % (15.3-44.8) L 04/30/25 06:55 Monocytes % 13.9 % (3.3-12.3) H 04/30/25 06:55 Eosinophils % 4.8 % (0-4.4) H 04/30/25 06:55 Basophils % 1.1 % (0-1.3) 04/30/25 06:55 Absolute Neutrophils 2.5 K/uL (1.8-8.0) 04/30/25 06:55 Absolute Lymphocytes 0.5 K/uL (0.7-4.9) L 04/30/25 06:55 Absolute Monocytes 0.5 K/uL (0.1-1.3) 04/30/25 06:55 Absolute Eosinophils 0.2 K/uL (0-0.5) 04/30/25 06:55 Absolute Basophils 0.0 K/uL (0-0.5) 04/30/25 06:55 Sodium 141 mEq/L (136-145) 04/30/25 06:55 Potassium 2.9 mEq/L (3.5-5.1) L 04/30/25 06:55 Chloride 106 mEq/L (98-107) 04/30/25 06:55 Carbon Dioxide 31 mEq/L (21-32) 04/30/25 06:55 Anion Gap 6.9 mEq/L (5.0-15.0) 04/30/25 06:55 BUN 8 mg/dL (7-18) 04/30/25 06:55 Creatinine 1.33 mg/dL (0.55-1.02) H 04/30/25 06:55 Est GFR (CKD-EPI) 42 ml/min (=/>90) L 04/30/25 06:55 Glucose 109 mg/dL (74-106) H 04/30/25 06:55 POC Glucose 140 mg/dL (65-120) H 04/30/25 11:33 Hemoglobin A1c 5.6 % (4.2-6.3) 04/28/25 08:20 Calcium 8.4 mg/dL (8.5-10.1) L 04/30/25 06:55 Albumin 2.0 g/dL (3.4-5.0) L 04/30/25 06:55 Prealbumin 5.6 mg/dL (20-40) L 04/30/25 06:55 Urine Color Light-yellow (Yellow) 04/30/25 11:15 Urine Clarity Turbid (Clear) H 04/30/25 11:15 Urine pH 6.5 (5.0-7.0) 04/30/25 11:15 Ur Specific [place] 1.008 (1.005-1.030) 04/30/25 11:15 Glucose (UA)(Auto) Negative (Negative) 04/30/25 11:15 Urine Ketones Negative (Negative) 04/30/25 11:15 Urine Blood Negative (Negative) 04/30/25 11:15 Urine Nitrite Negative (Negative) 04/30/25 11:15 Urine Bilirubin Negative (Negative) 04/30/25 11:15 Urine Urobilinogen Normal (Normal) 04/30/25 11:15 Ur Leukocyte Esterase 250 Analisa/uL (Negative) H 04/30/25 11:15 Urine RBC <5 /HPF (None Seen) 04/30/25 11:15 Urine WBC 10-20 /HPF (<5) H 04/30/25 11:15 Ur Squamous Epith Cells <5 /HPF (None Seen) 04/30/25 11:15 U Non-Squamous Epi Cells <5 /HPF (None Seen) 04/30/25 11:15 Urine Bacteria None seen /HPF (<20) 04/30/25 11:15 Urine Mucus Slight /HPF (None Seen) 04/30/25 11:15 Urine Yeast (Budding) Trace /HPF (None Seen) H 04/30/25 11:15 Urine Culture Reflexed Reflexed 04/30/25 11:15 Urine Total Protein Negative (Negative) 04/30/25 11:15 Weight: 227 lb Wound Present: No Closed Surgical Incision Present: No Negative Pressure Wound Therapy Present: No Physician Update: Labs reviewed and she has nausea and vomiting. Mod assist bed mobility, supervision today. Min assit with transfers. RW 100' with CGA. Min assist showering, mod assist toileting. Poor motivation. Summary: Patient's care plan and intermediate accountant goals have been reviewed and revised as necessary. Please see the Rehabilitation Signature page for all necessary signatures.
[2025-04-30] MEDS: ENSURE HIGH PROTEIN 237 ML CAN PO SCH (14:00)
[2025-04-30] MEDS ORDERED: SODIUM CHLORIDE 0.9% 10ML INJ IV PRN ×2 (15:17→16:11)
[2025-04-30] MEDS: NA CHLORIDE 0.9% IV SCH (16:00)
[2025-04-30] MEDS: PANTOPRAZOLE IV SCH (16:00)
[2025-04-30] MEDS: NA CHLORIDE 0.9% 1,000 ML IV SCH (16:16)
[2025-04-30] MEDS ORDERED: PANTOPRAZOLE 40 MG INJ IVP SCH (20:00)
[2025-04-30] MEDS: PANTOPRAZOLE 40 MG INJ IVP SCH (20:38)
[2025-04-30] MEDS: MEGESTROL 40 MG TAB PO SCH (20:39)
[2025-04-30] MEDS: ONDANSETRON 4 MG (ODT) TAB PO SCH (20:39)
[2025-04-30] MEDS: POTASSIUM CL SA 10 MEQ TAB PO SCH (20:46)
[2025-05-01] MEDS: NYSTATIN PWDR 100000 UNIT/GM TOP SCH (08:00)
[2025-05-03] MEDS: D5 0.45 NS 1,000 ML IV SCH (14:46)
--- NOTE | 2025-05-04 00:50 | PN ---
Date of Progress Note: 05/03/2025 Time: 1 p.m. Subjective: Ms. Newsome is resting comfortably. She is doing better in terms of orthostatic and no significant lightheadedness on standing. Still has a lot of difficulty swallowing and maintaining f ood in the stomach due to nausea or erosive gastritis. Dr. Fitzpatrick will be consulted to see if there is anything else that could be done. She does have Protonix IV 40 mg twice daily. She has now given some D5 half-normal saline. She did receive at least 2 L over the weekend of normal saline and then again will have D5 half-normal ongoing at 175 an hour. Objective: Nausea and now vomiting. No fevers or chills. No myalgias, arthralgias, rash, psychiatr ic complaints. Physical Examination: Vital Signs: Blood pressure is 133/64, pulse 78, respiratory rate 18, temperature 97.2, oxygen satur ation 96%. General: Ms. Newsome is sitting at side of bed, getting ready to do therapy. HEENT: She appears normocephalic, atraumatic. Sclerae anicteric. Oropharynx moist. Neck: Supple. Chest: Clear. Extremities: No significant edema, cyanosis, or clubbing found. Laboratory Studies: Blood sugars ranged from 109-164. X-ray/imaging: No new x-rays or imaging. Medications: Have been reviewed and again she received normal saline and D5 half-normal. Otherwise, medications are unchanged. Progress Made With Physical, Occupational, And Speech Therapy: With physical therapy today, she comp leted bed mobility, turning in bed, supine to sit with supervision to modified independence, multiple ssg-se-unnxr transfers and yyxfj-py-huzik transfers with modified independence. She ambulated 75 fe et with contact guard assistance, standby assistance using a rolling walker. Mobilized wheelchair 10 0 feet twice with contact guard assistance. She was up and down 5 stairs twice with contact guard as sistance and then ambulated 50 feet with contact guard assistance with a rolling walker. With occupa tional therapy, supervision for hnbxxg-mb-ekr transfers and goy-ov-dkxvwfiwfl transfer with a rolling walker also with supervision. She self propelled a wheelchair from room toward elevator to outside and then back to the gym independently with short breaks, 1 L of oxygen kept on throughout the sessio n. Assessment And Plan: Ms. Newsome is a 74-year-old patient with upper GI bleed and gastritis, who is making good progress with physical and occupational therapy, but still has significant difficulty ma intaining oral intake. She has nausea, vomiting and with Dr. Fitzpatrick did an EGD, will be consulted to help with management of the oral intake and minimizing the GE reflux and postop gastritis issues, so that she can maintain oral intake. Otherwise, she will continue with physical and cat dog or other pet groomer apy. Continue with all comorbid condition medications. She may have IV fluids going. She has Gisele nix IV and other medications for managing her pain, difficulty with sleep for orthostatic hypotension , dyslipidemia, and episodes of elevated blood pressure. LB/MODL Voice ID: [id number] Report ID: [id number]
[2025-05-04] MEDS: ENSURE CLEAR 200 ML CAN PO SCH (14:00)
--- NOTE | 2025-05-04 15:53 | RAD REPORT ---
EXAMINATION: NUCLEAR MEDICINE 4 HOUR GASTRIC EMPTYING STUDY CLINICAL INDICATION: Female, 74 years old. gastroparesis TECHNIQUE: After oral ingestion of technetium 99m sulfur colloid mixed with eggs, sequential abdomin al images were obtained for 4 hours. Percentage of activity emptying the stomach was calculated at 2 hours. Geometric mean gastric emptying was calculated. RADIOPHARMACEUTICAL: 1.0 mCi Tc-99m sulfur colloid in a standard solid meal. COMPARISON: No prior exam. FINDINGS: Radiotracer activity from ingested meal is seen in the stomach and demonstrates progressive emptying into the small bowel. No gastroesophageal reflux was seen during the examination. 120 minute retention is 48 %. T1/2 of gastric emptying is 111 minutes. IMPRESSION: Normal gastric emptying.
[2025-05-04 17:29] VITALS: BMI 35.4
--- NOTE | 2025-05-04 21:45 | PN ---
Date of Progress Note: 05/04/2025 Time: 1:00 p.m. Subjective: Ms. Newsome is resting comfortably in bed. She is doing much better in terms of mobili zation, transferring, ambulation, but still has significant nausea when trying to eat. Dr. Amari forrest order a gastric emptying study today. The study was normal. She is on IV Protonix 40 mg twice tyree ly and he will make recommendations to help with the patient's ability to maintain oral intake as cur rently food does cause nausea with vomiting and abdominal pain. Review of Systems: Again, nausea with occasional vomiting. No fevers, chills, myalgias, arthralgias, or rash. Physical Examination: Vital Signs: Blood pressure is 140/67, pulse 86, respiratory rate 18, temperature 97.6, oxygen satur ation 100%. General: Ms. Newsome is resting comfortably. She is in no significant distress aside from mild abd ominal pain when she attempts to eat. HEENT: She is normocephalic, atraumatic. Sclerae anicteric. Oropharynx moist. Neck: Supple. Chest: Clear. Heart: Regular. Extremities: Show no significant cyanosis, clubbing, or edema. Laboratory Studies: Blood sugars ranged from 103 to 157 and the gastric emptying study with nuclear medicine is normal. Medications: Her medications have been reviewed. She does have the Ensure Clear 200 mL 3 times neal y and she is continuing all other medications unchanged. Progress Made With Physical And Occupational Therapy: With physical therapy today, she did mobilize in bed with contact guard to standby assistance, multiple apu-fi-uxgww transfers done independently, ghbql-vo-evuuk transfers done independently. She did mobilize a wheelchair 500 feet forwards and 500 feet backwards independently. Gait: She ambulated 75 feet, 110 feet, 150 feet with contact guard a ssistance using a rolling walker and then later on, she did 110 feet with contact guard assistance du e to loss of balance. With occupational therapy, supervision for pyypud-mr-opt transfers, standby as sistance for udt-ot-oyfar transfers. She did have impaired standing balance when transferring and re quires standby assistance. Toilet hygiene, verbal cues to complete it properly with standby assistan edinson. Assessment And Plan: Ms. Dahlmeir is a 74-year-old patient in rehabilitation unit with upper gastroi ntestinal bleed. It has actually resolved at this point, but she still has significant episodes of g astritis. She is followed by Dr. Fitzpatrick who is helpful. She began a normal gastric emptying study. She is on Protonix IV 40 mg twice daily. She has some issues with eating. She is on Ensure Clear 3 times daily. She still has mild decreased mobility, decreased physical functioning in addition to s ome orthostatic symptoms, which have improved. She has dyslipidemia, hypertension, shortness of ron th, mild anemia, some iron deficiency, moderate pain, and insomnia. Plan: She will continue with physical, occupational therapy 3 hours a day, 5/7 days. We will contin ue with comorbid condition medications. Her big issue is being unable to eat properly. That is the most vital issue on rehabilitation and Dr. Fitzpatrick is hopeful for that. YAMILKA/NIKA Voice ID: [id number] Report ID: [id number]
[2025-05-05 07:56] LABS: Albumin 2.0 g/dL (3.4-5.0); Anion Gap 6.2 mEq/L (5.0-15.0); BUN Blood Urea Nitrogen 9.0 mg/dL (7-18); Glucose Level 123.0 mg/dL (74-106); Magnesium 1.5 mg/dL (1.6-2.4); Potassium 4.2 mEq/L (3.5-5.1); Prealbumin 7.9 mg/dL (20-40)
[2025-05-05 07:59] LABS: Absolute Lymphocytes (CBC) 0.8 K/uL (0.7-4.9); Hematocrit 29.6 % (36.0-45.0); Hemoglobin 9.7 g/dL (12.0-15.0); MCH 30.6 pg (27.0-35.0); MCHC 32.7 g/dL (32.0-36.0); MCV 93.8 fL (80-100); MPV 8.8 fL (7.6-11.3); Nucleated RBC Absolute Count 0.0 (0-0); Nucleated Red Blood Cells % 0.1 % (0-0); RBC Red Blood Cell Count 3.16 M/uL (3.86-4.86); White Blood Count 5.80 thou/uL (4.3-10.9)
[2025-05-05] MEDS: METOCLOPRAMIDE 10 MG/2mL INJ IV SCH ×2 (10:31→12:00)
--- NOTE | 2025-05-05 10:38 | P.PN ---
Subjective Date of Service: 05/05/25 Chief Complaint: N/V with po intake. Gastritis on EGD. Subjective: New changes (Still with N/V with po intake and with activities / movement she reports. Taking Protonix IV bid and Zofran po prn. Verbal -> gastric emptying study negative, and patient reports one prior years ago negative as well.) Review of Systems 10-point ROS is otherwise unremarkable General: Weakness, Malaise Gastrointestinal: Nausea, Abdominal Pain Physical Examination - Vital Signs Temperature: 97.6 F Blood Pressure: 128/92 Pulse: 81 Respirations: 16 Pulse Ox (%): 99 - Physical Exam General: Alert, In no apparent distress, Oriented x3, Cooperative HEENT: Atraumatic, Normocephalic, PERRLA, EOMI Neck: Supple Respiratory: Normal air movement Cardiovascular: Normal pulses Gastrointestinal: No rebound, Tenderness Neurological: Normal speech, Normal strength at 5/5 x4 extr - Studies Laboratory Data (last 24 hrs) 05/05/25 05/05/25 06:09 05:00 WBC 5.80 Hgb 9.7 L Hct 29.6 L Plt Count 126 L Sodium 142 Potassium 4.2 BUN 9 Creatinine 1.28 H Glucose 123 H Magnesium 1.5 L Assessment And Plan - Current Problems (Diagnosis) (1) Nausea & vomiting Current Visit: Yes Status: Acute (2) Epigastric abdominal pain Current Visit: Yes Status: Acute (3) Anemia Current Visit: No Status: Acute (4) COPD (chronic obstructive pulmonary disease) Current Visit: No Status: Acute (5) Gastritis Current Visit: No Status: Acute (6) Melena Current Visit: No Status: Acute (7) Presence of cardiac pacemaker Current Visit: No Status: Acute (8) Type 2 diabetes mellitus Current Visit: No Status: Acute - Plan REC: 1) continue Protonix 40 mg IV q 12 2) change Zofran from po to IV 4 mg q 6 hours scheduled 3) give Reglan 10 mg IV X1 now; if effective start 5-10 mg IV qac/qhs for one week 4) monitor labs
[2025-05-05] MEDS: ONDANSETRON 4 MG (ODT) TAB PO SCH (11:24)
[2025-05-05] MEDS: ONDANSETRON 4 MG/2 ML VIAL IV ONE (12:30)
[2025-05-05] MEDS: PROMETHAZINE INJ 25 MG/ML AMP IM ONE (12:51)
--- NOTE | 2025-05-05 12:59 | CON ---
Date of Consultation: 05/04/2025 Reason For Consultation: Intractable nausea, vomiting with history of gastritis. History Of Present Illness: The patient is a 74-year-old white female with history of hypertension, diabetes, hyperlipidemia, depression, aortic valve replacement. The patient presented to the rehab u [facility] after being on floor and on the floor, she had melena with nausea, vomiting, found to have hemorr hagic gastritis on EGD. Hemoglobin dropped to 7.3 and then returned back up to 9.3. She also had th rombocytopenia with platelets at 81,000 to 102,000. The patient states now that any time she eats, s he has nausea, vomiting. Sitting sometimes, she has nausea, vomiting, and when she moves and does ph ysical therapy, she has nausea, vomiting. It is unclear if she is losing weight, but she is obese at this time. Past Medical History: Significant for diabetes, hypertension, hyperlipidemia, gastroesophageal reflu x disease, depression, breast cancer, status post left lumpectomy or mastectomy, lymph nodes dissecte d, status post chemotherapy. She also has a pacemaker, aortic valve replacement. Allergies: TO METFORMIN. Medications: Include amlodipine, Lipitor. List of home medicines: Budesonide, Plavix, Trelegy, la ctulose, methocarbamol, Remeron, Zyprexa, Protonix, Ultram, and trazodone. Allergies: METFORMIN STATED ABOVE. Social History: She is a , 2 daughters. She vapes. She quit tobacco 3 years ago. No alcohol. Family History: Father of congestive heart failure. Mother of congestive heart failure. Physical Examination: Vital Signs: The patient's temperature of 97.6 degrees Fahrenheit, pulse 86, respirations 18, blood pressure 140/67, O2 saturation 100%. HEENT: Normocephalic, atraumatic. Anicteric. Pupils equal, round, and reactive to light. Extraocu lar movements intact. Oropharynx is clear. Neck: Supple. No masses. Respirations: Clear to auscultation bilaterally. Cardiac: Regular rhythm. No gallops or rubs. Abdomen: Positive bowel sounds. Soft, nondistended. Pain in the midepigastric periumbilical area g raded in the right and left lower quadrant areas. Mild guarding. No peritoneal Nation sign. No michelle ound. Extremities: No clubbing, cyanosis, or edema. 2+ pulses. Neuro: Alert and oriented x3, grossly nonfocal. 5/5 motor strength. Sensation intact to light touc h. Laboratory Data: The patient has white count from the 17 of 3.7, hemoglobin 8.5, hematocrit 26.2, pl atelet count of 102, polys of 66%, lymphocytes 14%, monocytes 14%, eosinophils 5%. . On 07 21, she has sodium 141, potassium 2.9, chloride 106, bicarb 31, BUN of 8, creatinine of 1.33, glucos e 109, calcium 8.4, albumin 2.0, prealbumin 5.6. UA, 250 leukocyte esterase, 10 to 20 white blood ce lls, squamous epithelials less than 10, leukocyte esterase positive at 250, trace yeast. Review of Systems: The patient had nausea, vomiting, midepigastric periumbilical pain, greater in the right and left low er quadrant pain. No fevers, chills, night sweats, heat or cold intolerance, muscle aches, joint ach es, backaches, depression, anxiety. She has had little depression, medication. No seizur e, syncope, muscle aches, joint aches, backaches. No current melena. No hematochezia and no hematem esis, coffee-ground emesis, hemoptysis, hematuria, dysuria, polydipsia. Impression: 1. Intractable nausea, vomiting with p.o. intake or any movement and is unable to keep her food down well. The patient is concerned she is not able to eat or lose weight, though she is obese at this ti me. 2. Gastritis on EGD, hemorrhagic gastritis noted on EGD while admitted into the hospital. Now she is in the rehab unit. 3. Urinary tract infection. Continue with antibiotics. 4. History of diabetes, hypertension, hyperlipidemia, gastroesophageal reflux disease, depression, br east cancer, status post left lobectomy with lymph node dissection and chemotherapy, pacemaker and ao rtic valve replacement. 5. Anemia. 6. Thrombocytopenia. Recommendation: 1. Check gastric emptying study now. 2. Continue PPI therapy. 3. Consider motility. 4. Continue p.r.n. antiemetics. 5. Continue IV antibiotics for urinary tract infection. SUE/NIKA Voice ID: [id number] Report ID: [id number]
[2025-05-05] MEDS: D5 0.45 NS 1,000 ML IV SCH (15:16)
--- NOTE | 2025-05-05 20:49 | PN ---
Date of Progress Note: 05/05/2025 Subjective: Ms. Newsome is sitting in bed. She is still very worried about not being able to eat. She is having nausea. A gastric follow-through study was normal and Dr. Fitzpatrick is on the case and h is note from yesterday did indicate he would continue current management, IV Protonix and Zofran ever y 4 hours and then adding Reglan as well. His note from today, he indicated continue medications as noted and send sitter and IV antibiotics and antiemetics. Objective: She then reports nausea orthostatic hypotension that did improve after receivi ng 4th liter of fluid, 2 L of normal saline and 2 L of D5 half normal saline. She will have a midlin e placed as peripheral access peripheral veins is limited. Physical Examination: Vital Signs: Blood pressure 128/92, pulse 81, respiratory rate 16, temperature 97.6, oxygen saturati on 99%. General: Ms. Newsome is resting comfortably, in mild pain and she is lying in bed, . HEENT: She is otherwise normocephalic, atraumatic. Sclerae anicteric. Oropharynx pink and moist. Neck: Supple. Chest: Clear. Extremities: No significant edema or cyanosis noted in the extremities. Laboratory Studies: White blood cell count 5.8, hemoglobin 9.7, platelets 126. Sodium 142, potassiu m 4.2, chloride 110, carbon dioxide 30, BUN 9, creatinine 1.28, glucose ranged from 111-136, calcium 8.5, magnesium 1.5, albumin 2.3, prealbumin 7.9. X-ray/imaging: No new x-rays or imaging. Medications: Have been reviewed. Ensure Clear 200 mg 3 times daily. In addition, Reglan 10 mg every 6 hours. She has midodrine for pressure support. She will continue 4 mg [facility] ry 6 hours. She has Protonix, 40 mg q.12 hours. Progress Made With Physical, Occupational, And Speech Therapy: With her physical therapy, performed multiple pdghdh-hw-dmt transfers independently, tmj-cx-apxjx transfers independently, stand pivot tra nsfers independently. She did ambulate 100 feet, 150 feet with contact guard assistance. Did have s ome unsteadiness of gait. She ascended and descended 3 steps on stairs with bilateral handrails. Mo bilized a wheelchair 350 feet independently. With occupational therapy, supervision for vzdhka-nb-hv t transfers, contact guard assistance for edge of bed to wheelchair transfer, standby assistance for upper back and upper body bathing and upper body dressing. She had a max assistance for lower body d ressing. Her blood pressure at one point did go down to 91/48 with a pulse of 97 and that was at the beginning of the session. At the end of the session, 103/51, pulse of 106. Did have some worsening nausea. Abdominal binder, TRI hose were in place. Assessment And Plan: Ms. Newsome is a 74-year-old patient with upper GI bleed. She is followed by Dr. Fitzpatrick and he is helping with management of nausea, vomiting, and poor oral intake. She still sandoval s mild decreased mobility, decreased physical functioning. In addition to the moderate pain, insomni a, reflux, she has moderate to marked low pre-albumin, orthostatic hypotension, low blood pressure, p oor appetite, deficiency and risk of stroke. Shortness of breath is improved and dyslipidemia. Plan will be to have physical and occupational therapy continued. She will be managed in conjunction wit h Dr. Fitzpatrick, the GI doctor to help with the GI issues. RegEvie schaeffer, schedule of IV fluids or D5 half-normal. She has muscle relaxant. She has Megace to continue. She is scheduled for discharge i n the morning. However, given the inability to maintain oral intake, discharge will be held for chuckie ntially 2 days, will discharge on Saturday. At this point, she should follow up with Dr. Fitzpatrick and co ntinue therapy likely via Home Health. LB/MODL Voice ID: [id number] Report ID: [id number]
[2025-05-05] MEDS: TRAMADOL HCL 50 MG TAB PO PRN (22:07)
[2025-05-06] MEDS: METOCLOPRAMIDE 10 MG/2mL INJ IV SCH (19:03)
--- NOTE | 2025-05-06 21:35 | P.PN ---
Subjective Date of Service: 05/06/25 Chief Complaint: N/V with po intake. Gastritis on EGD. Subjective: Improving (Improving on scheduled Zofran 4 mg IV q 6 hours, but RNs report she started refusing today, stating she didn't think it was working though she has not vomited today and has less nausea. She has been drinking Pepsi sodas / cola sodas in hospital and had Starbucks coffee or more brought to her though), Other (though she supposedly could not keep anything down. She is surreptiously consuming calories from bad sources like soda and [place] coffees. Instructed RN to stop immediately.) Physical Examination - Vital Signs Temperature: 97.0 F Blood Pressure: 133/62 Pulse: 92 Respirations: 18 Pulse Ox (%): 97 Assessment And Plan - Current Problems (Diagnosis) (1) Nausea & vomiting Current Visit: Yes Status: Acute Comment: Improving on scheduled Zofran, Protonix, and yesterday Reglan X4. (2) Epigastric abdominal pain Current Visit: Yes Status: Acute (3) Anemia Current Visit: No Status: Acute (4) COPD (chronic obstructive pulmonary disease) Current Visit: No Status: Acute (5) Gastritis Current Visit: No Status: Acute (6) Melena Current Visit: No Status: Acute (7) Presence of cardiac pacemaker Current Visit: No Status: Acute (8) Type 2 diabetes mellitus Current Visit: No Status: Acute - Plan REC: 1) continue Protonix 40 mg IV q 12 2) continue Zofran 4 mg IV q 6 hours scheduled 3) give Reglan 10 mg IV tid 4) monitor labs 5) stop all bad caloric intake, e.g. cola sodas, Pepsi, [place] coffees ...
--- NOTE | 2025-05-07 00:21 | PN ---
Date of Progress Note: 05/06/2025 Time: 1 p.m. Subjective: Ms. Newsome is resting in bed. She is to be discharged in the morning. Still not quit e yet eating without nausea. She is on Reglan by Dr. Fitzpatrick and Zofran to be discharged t omorrow to follow up with Dr. Fitzpatrick in clinic. Objective: Again mild nausea. No recent vomiting. Improved orthostatics symptoms, getting up with lightheadedness, much less. She received several L of normal saline . Physical Examination: Vital Signs: Blood pressure 133/62, pulse of 92, respiratory rate 16, temperature 97.0, oxygen satur ation 92% on room air. General: Ms. Newsome is again lying in bed between therapy sessions. HEENT: She is normocephalic, atraumatic. Sclerae anicteric. Oropharynx pink, moist. Neck: Supple. Chest: Clear. Neuro: She has no focal deficits. Laboratory Studies: Blood sugars ranged from 104 to 163. Otherwise, no new laboratory studies. X-ray/imaging: No new x-rays or imaging. Medications: Have not been changed any further and is on Reglan, receiving 10 mg, received as IV. S he is on midodrine for pressure support in addition to Zofran, Protonix, potassium replacement, and t ramadol. Progress Made With Physical, Occupational, And Speech Therapy: With physical therapy, she did ambula te 225 feet twice with a rolling walker and contact guard assistance. Still has some unsteadiness of gait and then mobilized a wheelchair 350 feet independently. Kguhje-fz-dzo transfers done independe ntly. Multiple jmx-vg-zyljz transfers done independently, flhxt-na-mkqdu transfers also independent. With occupational therapy, independent with fjosxz-js-cum transfers and wbc-tg-yrlsjxeauh transfer independent. Self propelled wheelchair from her room to outside independently with temporary breaks. Oxygen saturation remained around 97% on room air. Blood pressure was 130/56 with heart rate of 88 . No loss of balance noted. Assessment And Plan: Ms. Newsome is a 74-year-old patient in rehabilitation unit with upper GI blee d. Still has some issues including nausea and that is improving. She is doing very well with physic al and occupational therapy. Ready for discharge in the morning. We will continue therapy via Home Health. She will follow up with Dr. Fitzpatrick, primary care physician as scheduled and the biggest issu e again has been the nausea and difficulty with her appetite. Ensure Clear has been tolerated slight ly better, but still not quite follow up with Dr. Fitzpatrick. YAMILKA/NIKA Voice ID: [id number] Report ID: [id number]
[2025-05-07 07:18] VITALS: O2SAT 95
[2025-05-07 07:23] VITALS: BP 126/58; TEMP 97.8
== END 2025-05-07 11:53 | disposition home health service (06) | DRG 948 ==
LOC: 5TH 16:00
PROVIDERS: ADMIT Psychiatry & Neurology Neurology with Special Qualifications in Child Neurology; ATTEND Psychiatry & Neurology Neurology with Special Qualifications in Child Neurology
DX: R53.81 Other malaise (principal); J96.11 Chronic respiratory failure with hypoxia; N39.0 Urinary tract infection, site not specified; I12.9 Hypertensive chronic kidney disease with stage 1 through stage 4 chronic kidney disease, or unspecified chronic kidney disease; E11.22 Type 2 diabetes mellitus with diabetic chronic kidney disease; N18.2 Chronic kidney disease, stage 2 (mild); I95.1 Orthostatic hypotension; R53.1 Weakness; R26.81 Unsteadiness on feet; M62.838 Other muscle spasm; R10.13 Epigastric pain; J44.9 Chronic obstructive pulmonary disease, unspecified; K29.70 Gastritis, unspecified, without bleeding; D50.9 Iron deficiency anemia, unspecified; E78.5 Hyperlipidemia, unspecified; K21.9 Gastro-esophageal reflux disease without esophagitis; R11.2 Nausea with vomiting, unspecified; D69.6 Thrombocytopenia, unspecified; R29.818 Other symptoms and signs involving the nervous system; G47.00 Insomnia, unspecified; F32.A Depression, unspecified; K44.9 Diaphragmatic hernia without obstruction or gangrene; Z95.2 Presence of prosthetic heart valve; Z95.0 Presence of cardiac pacemaker
CPT/HCPCS: 36415; 74018; 78264; 80048; 81001; 82040; 82947; 83036; 83735; 84134; 85025; 87086; 87088; 94640; 97110; 97116; 97163; 97165; 97530; 97542; A9541; J2405; J2470; J2550; J2765; J7030; J7050; J7626; J7799; P9047; Q0162